=== PATIENT | female | born 1935 | race Caucasian/White ===

== ENCOUNTER → 2018-02-13 12:38 | Outpatient (CLI) | payer MEDICARE, OTHER, SELFPAY ==
[2018-02-13 12:55] LABS: Bacteria Urine None Seen; RBC Urine None Seen (0-5/HPF); WBC Urine None Seen (0-5/HPF)
[2018-02-13 13:21] LABS: Appearance Urine UA CLEAR; Bilirubin Urine UA NEGATIVE (NEGATIVE); Color Urine UA YELLOW; Glucose Urine UA NEGATIVE (Normal); Ketones Urine UA NEGATIVE (NEGATIVE); Leukocyte Esterase Urine UA NEGATIVE (NEGATIVE); Nitrite Urine UA Negative (Negative); Occult Blood Urine UA TRACE-INTACT (Negative); Protein Urine UA NEGATIVE (Negative); Urobilinogen Urine UA 0.2 E.U./dL (0.2); pH Urine UA 5.5 (4.5-8.0)
[2018-02-13 13:43] LABS: Culture Indicated Urine Cult Not Indicated; Urine Comments Microscopic Normal
[2018-02-13 14:05] LABS: Add Manual Diff / Slide Review NO; Basophils Percent Auto 0.9 % (0-2); Eosinophils Percent Auto 2.9 % (2-4); Lymphocytes Percent Auto 33.8 % (25-40); Mean Corpuscular HGB Conc 33.5 % (30-36); Mean Corpuscular Hemoglobin 31.3 PG (26-34); Mean Corpuscular Volume 93.7 fL (80-100); Monocytes Percent Auto 9.3 % (3-14); Neutrophils Absolute Auto 4200 /uL (3000-5900); Neutrophils Percent Auto 53.1 % (50-75); Platelet Count 248 X10^3/uL (150-400); Red Blood Cell Count 4.48 X10^6/uL (4.0-5.2); White Blood Cell Count 7.9 X10^3/uL (4.5-11.0)
== END ==
PROVIDERS: Family Provider Internal Medicine; PCP Internal Medicine; Visit Provider Internal Medicine
DX: R10.9 Unspecified abdominal pain (principal)
CPT/HCPCS: 36415; 81001; 85025

== ENCOUNTER → 2018-03-12 07:46 | Outpatient (CLI) | payer MEDICARE, OTHER, SELFPAY ==
[2018-03-12 09:06] LABS: Alanine Aminotransferase 26 IU/L (9-52); Aspartate Aminotransferase 21 IU/L (14-36); Blood Urea Nitrogen 21 mg/dL (7-17); Calcium 9.2 mg/dL (8.4-10.2); Carbon Dioxide 31 mmol/L (22-32); Chloride 101 mmol/L (98-107); Cholesterol 143 mg/dL (140-199); Estimated Glomerular Filt Rate 53.2 mL/min (>60); Glucose 103 mg/dL (80-110); HDL Cholesterol 54 mg/dL (40-60); HEMOLYSIS < 15 (0-50); LDL Cholesterol Calculated 70 mg/dL (<100); Potassium 4.5 mmol/L (3.4-5.1); Sodium 140 mmol/L (137-145); Triglycerides 97 mg/dL (35-150)
[2018-03-12 09:32] LABS: TSH w/ Reflex to FT4 2.34 uIU/mL (0.47-4.68)
== END ==
PROVIDERS: PCP Internal Medicine; Visit Provider Internal Medicine
DX: I10 Essential (primary) hypertension (principal); E78.00 Pure hypercholesterolemia, unspecified; E03.9 Hypothyroidism, unspecified
CPT/HCPCS: 36415; 80048; 80061; 84443; 84450; 84460

== ENCOUNTER 2018-03-25 09:18 | Emergency (ER) | payer MEDICARE, OTHER, SELFPAY ==
[2018-03-25 09:25] VITALS: BP 167/64; PULSE 80; RESP 22; TEMP 36.9; O2SAT 97; BMI 34.3
--- NOTE | 2018-03-25 09:27 | DI.RAD.S_ITS ---
PROCEDURE: XR CHEST 2V INDICATIONS: cough TECHNIQUE: 2 views of the chest were acquired. COMPARISON: [facility], , XR CHEST 2 VIEWS, 04/13/2017, 11:15. FINDINGS: Surgical changes and devices: None. Lungs and pleura: No pleural effusions or pneumothorax. Lungs are clear. Mediastinum: Mediastinal contours are normal. Heart size is normal. Bones and chest wall: No suspicious bony abnormalities. Soft tissues appear unremarkable. IMPRESSION: No acute process. Dictated by: Naz Hernandez M.D. on 03/25/2018 at 10:06 Approved by: Naz Hernandez M.D. on 03/25/2018 at 10:06
[2018-03-25] MEDS: ALBUTEROL/IPRATROPIUM 3 ML AMPUL INH (10:01)
[2018-03-25 10:35] LABS: Influenza A and B by PCR Rapid Negative (Negative)
[2018-03-25 10:54] VITALS: BP 145/68; PULSE 77; RESP 15; O2SAT 95
--- NOTE | 2018-03-25 16:34 | ED_ITS ---
HPI - URI/Sore Throat General Chief Complaint: Upper Respiratory Symptoms Stated Complaint: cold/cough 6 days Time Seen by Provider: 03/25/18 09:34 Source: patient Mode of arrival: ambulatory Limitations: no limitations History of Present Illness HPI Narrative: 82-year-old female, former smoker presents to the emergency department with 6 days harsh cough, occasionally productive of yellowish sputum. She has had no fever and denies significant shortness of breath. She does state that a deep breath makes her more likely to cough. She has had no runny nose or sore throat. She denies body aches MD Complaint: cough Onset (ago): day(s) Duration: constant Severity: moderate Relieving factors: nothing Exacerbating factors: nothing Description of mucous: yellow Able to tolerate fluids by mouth: Yes Associated symptoms: denies other symptoms Treatments prior to arrival: none Related Data Home Medications Medication Instructions Recorded Confirmed levothyroxine [Synthroid] 0.2 mg PO QDAY #0 01/17/16 losartan 100 mg PO QDAY #0 01/17/16 amlodipine 10 mg PO QDAY #90 tab 01/18/16 esomeprazole magnesium [Nexium] 40 mg PO BID #180 cap 01/18/16 metoprolol succinate [Toprol XL] 100 mg PO QDAY #0 tab 01/18/16 spironolactone [Aldactone] 25 mg PO QDAY #0 09/20/17 Previous Rx's Medication Instructions Recorded aspirin-dipyridamole [Aggrenox] 1 cap PO BID #60 cap 01/18/16 atorvastatin [Lipitor] 40 mg PO HS #30 tab 01/18/16 codeine-guaifenesin 5 ml PO QHS #60 ml 09/20/17 oseltamivir [Tamiflu] 75 mg PO BID #10 cap 09/20/17 benzonatate [Tessalon Perles] 100 mg PO TID PRN #20 cap 03/25/18 doxycycline monohydrate 100 mg PO BID 10 Days #20 cap 03/25/18 Allergies Allergy/AdvReac Type Severity Reaction Status Date / Time No Known Allergies Allergy Uncoded 03/25/18 09:35 Review of Systems Review of Systems All systems reviewed & are unremarkable except as noted in HPI and below Constitutional Denies chills, Denies fever(s), Denies lethargy and Denies weakness Eyes Denies change in vision, Denies eye discharge, Denies irritation and Denies loss of vision ENT Ears, Nose, Mouth, and Throat: Denies change in voice, Denies neck pain and Denies sore throat Cardiovascular Denies chest pain, Denies irregular heart rhythm, Denies lightheadedness, Denies palpitations, Denies dyspnea, Denies dyspnea on exertion and Denies orthopnea Respiratory Reports chest congestion, Reports cough, Denies dyspnea, Denies dyspnea on exertion and Denies wheezing Gastrointestinal Gastrointestinal: Denies abdominal pain, Denies change in bowel habits, Denies diarrhea, Denies nausea and Denies vomiting Genitourinary Denies hematuria, Denies flank pain, Denies urinary incontinence and Denies urinary urgency Musculoskeletal Denies neck pain Integumentary/Breasts Denies pruritus, Denies erythema, Denies rash and Denies wounds Neurologic Denies confusion, Denies loss of vision and Denies weakness Psychiatric Denies anxiety, Denies confusion, Denies depression, Denies homicidal ideation and Denies suicidal ideation Endocrine Denies palpitations Hematologic/Lymphatic Denies easy bruising Allergic/Immunologic Denies wheezing PFSH Social History Smoking Status: Former smoker Exam Narrative Exam Narrative: GENERAL: This is a well-nourished, well-developed patient, in mild distress. HEAD: Atraumatic. Normocephalic. No temporal or scalp tenderness. EYES: Pupils equal round and reactive. Extraocular motions intact. No scleral icterus. No injection or drainage. ENT: Nose without bleeding, purulent drainage or septal hematoma. Throat without erythema, tonsillar hypertrophy or exudate. Uvula midline. Airway patent. NECK: Trachea midline. No JVD or lymphadenopathy. Supple, nontender, no meningeal signs. CARDIOVASCULAR: Regular rate and rhythm without murmurs, gallops, or rubs. RESPIRATORY: Clear to auscultation. Breath sounds equal bilaterally. Mild expiratory wheeze GASTROINTESTINAL: Abdomen soft, non-tender, nondistended. No hepato-splenomegaly , or palpable masses. No guarding. EXTREMITIES: No clubbing, cyanosis, or edema. No joint tenderness, effusion, or edema noted. BACK: Nontender without deformity or crepitance. No flank tenderness. NEURO: AOx3. SKIN: No rash or erythema. Initial Vital Signs Initial Vital Signs: Vital Signs Temperature 98.5 F 10/14/18 09:25 Pulse Rate 80 03/25/18 09:25 Respiratory Rate 22 03/25/18 09:25 Blood Pressure 167/64 H 03/25/18 09:25 Pulse Oximetry 97 03/25/18 09:25 Course Orders Ordered: ED Orders 03/25/18 09:27 CXR [XR chest 2V] Stat 03/25/18 10:10 Influenza A and B by PCR Rapid Stat Discontinued Medications Albuterol/Ipratropium (Duoneb) 3 ml INH NOW ONE Stop: 03/25/18 09:51 Last Admin: 03/25/18 10:01 Dose: 3 ml Reevaluation(s) Reevaluation #1: Patient was given bronchodilator given her description of bronchospastic cough but it provided little relief Vital Signs - 8 hr 03/25/18 09:25 03/25/18 10:54 Temperature 98.5 F Pulse Rate 80 77 Respiratory Rate 22 15 Blood Pressure 167/64 H Blood Pressure [Left Arm] 145/68 H Pulse Oximetry 97 95 MDM - URI/Sore Throat Lab Data Lab Results 03/25/18 Range/Units 10:10 Influenza A & B (PCR) Negative (Negative) Discharge Plan Departure Patient Disposition: Home Clinical Impression: Atypical pneumonia Discharge Date/Time: 03/25/18 11:06 Interventions: ED Discharge Assessment Last Done: 03/25/18 11:05 Instructions: DI for Atypical Pneumonia Activity Restrictions/Additional Instructions: *You have been diagnosed with [ atypical pneumonia ] *What to do: *Take medications as directed: Prescriptions have been electronically transmitted to the [facility] at your request *Follow up with your primary care provider in 2-3 days, call for an appointment. Let them know you were seen in the Emergency Department and that we ask that you be seen in follow up *Return to ER if you should have any new, worsening or concerning symptoms Prescriptions: New doxycycline monohydrate 100 mg capsule 100 mg PO BID 10 Days Qty: 20 RF: 0 benzonatate [Tessalon Perles] 100 mg capsule 100 mg PO TID PRN (Reason: cough) Qty: 20 RF: 0 No Action levothyroxine [Synthroid] 200 MCG tablet 0.2 mg PO QDAY Qty: 0 RF: 0 losartan 100 MG tablet 100 mg PO QDAY Qty: 0 RF: 0 aspirin-dipyridamole [Aggrenox] 25 MG/200 MG capsule, ER multiphase 12 hr 1 cap PO BID Qty: 60 RF: 0 esomeprazole magnesium [Nexium] 40 MG capsule,delayed release(DR/EC) 40 mg PO BID Qty: 180 RF: 3 metoprolol succinate [Toprol XL] 100 MG tablet extended release 24 hr 100 mg PO QDAY Qty: 0 RF: 0 amlodipine 10 MG tablet 10 mg PO QDAY Qty: 90 RF: 3 atorvastatin [Lipitor] 20 MG tablet 40 mg PO HS Qty: 30 RF: 0 spironolactone [Aldactone] 25 MG tablet 25 mg PO QDAY Qty: 0 RF: 0 oseltamivir [Tamiflu] 75 MG capsule 75 mg PO BID Qty: 10 RF: 0 codeine-guaifenesin 100 MG/10 MG liquid 5 ml PO QHS Qty: 60 RF: 0 Referrals: Philly Merrill MD [Primary Care Provider] -
== END 2018-03-25 11:06 | disposition home or self-care (01) ==
PROVIDERS: Emergency Provider Emergency Medicine; Family Provider Internal Medicine; PCP Internal Medicine
DX: J18.9 Pneumonia, unspecified organism (principal)
CPT/HCPCS: 71046; 87400; 94640; 99282; 99284

== ENCOUNTER 2018-08-06 11:30 | Emergency (ER) | payer MEDICARE, OTHER, SELFPAY ==
[2018-08-06] VITALS (9 sets, daily range): BP systolic 128–154; BP diastolic 56–90; PULSE 65–74; RESP 20–30; TEMP 37; O2SAT 91–97; BMI 33.9
--- NOTE | 2018-08-06 11:43 | DI.RAD.S_ITS ---
PROCEDURE: XR CHEST 2V INDICATIONS: shortness of breath TECHNIQUE: 2 views of the chest were acquired. COMPARISON: [facility], , XR CHEST 2V, 03/25/2018, 9:26. FINDINGS: Surgical changes and devices: None. Lungs and pleura: Lungs are clear. No pleural effusions or pneumothorax. Eventration of the right diaphragm is similar to prior study. Mediastinum: Mediastinal contours are normal. Heart size is enlarged. There is aortic atherosclerosis. Bones and chest wall: No suspicious bony abnormalities. Degenerative changes of the shoulders and spine are present. These findings are similar to the prior study. Soft tissues appear unremarkable. IMPRESSION: Cardiomegaly without overt heart failure. No acute cardiopulmonary process is evident. Dictated by: Gregorio Angel M.D. on 08/06/2018 at 11:23 Approved by: Gregorio Angel M.D. on 08/06/2018 at 11:37
[2018-08-06] MEDS: ALBUTEROL/IPRATROPIUM 3 ML AMPUL INH (12:00)
[2018-08-06 12:21] LABS: Add Manual Diff / Slide Review NO; Basophils Absolute Auto 0 /uL (0-100); Basophils Percent Auto 0.8 % (0-2); Eosinophils Absolute Auto 0 /uL (0-450); Eosinophils Percent Auto 1.3 % (2-4); Hemoglobin 12.6 g/dL (12.0-16.0); Lymphocytes Absolute Auto 1300 /uL (1100-4500); Lymphocytes Percent Auto 34.8 % (25-40); Mean Corpuscular HGB Conc 34.1 % (30-36); Mean Corpuscular Hemoglobin 31.2 PG (26-34); Mean Corpuscular Volume 91.5 fL (80-100); Monocytes Absolute Auto 500 /uL (0-900); Monocytes Percent Auto 13.5 % (3-14); Neutrophils Absolute Auto 1800 /uL (1500-7000); Neutrophils Percent Auto 49.6 % (50-75); Platelet Count 180 X10^3/uL (150-400); Red Blood Cell Count 4.05 X10^6/uL (4.0-5.2); Red Cell Distribution Width 13.6 % (11.6-14.8); White Blood Cell Count 3.6 X10^3/uL (4.5-11.0)
[2018-08-06 12:31] LABS: Alanine Aminotransferase 31 IU/L (9-52); Albumin 4.2 g/dL (3.5-5.0); Albumin Globulin Ratio 1.4 (1.0-2.8); Alkaline Phosphatase 80 U/L (38-126); Aspartate Aminotransferase 25 IU/L (14-36); BUN Creatinine Ratio 17.5 (6-22); Bilirubin Total 0.2 mg/dL (0.2-1.3); Blood Urea Nitrogen 14 mg/dL (7-17); Calcium 8.3 mg/dL (8.4-10.2); Carbon Dioxide 27 mmol/L (22-32); Chloride 89 mmol/L (98-107); Estimated Glomerular Filt Rate > 60.0 mL/min (>60); Globulin 2.9 g/dL (1.7-4.1); Glucose 110 mg/dL (80-110); HEMOLYSIS < 15 (0-50); Potassium 3.9 mmol/L (3.4-5.1); Sodium 127 mmol/L (137-145); Total Protein 7.1 g/dL (6.3-8.2)
--- NOTE | 2018-08-06 13:08 | ED.SOB ---
HPI - SOB/Dyspnea <Nanette Marrero PA-C - Last Filed: 08/06/18 21:15> General Chief Complaint: Shortness of Breath/Dyspnea Stated Complaint: cough,difficulty breathing Time Seen by Provider: 08/06/18 13:08 Source: patient Mode of arrival: ambulatory Limitations: no limitations History of Present Illness This 83-year-old female comes to ED due to acute onset of fatigue, body aches, and mostly dry cough 4 days ago. She also has some runny nose. She denies having any fever at home. For the last 2 days, she has had some pain in her chest especially when she coughs. She states that she has also had wheeze and increased cough especially when lying down. She feels a little bit short of breath. She states all of this feels significantly improved following nebulizer treatment. She states that she always has some swelling in her legs, nothing new or worse. She has not had any chest pain outside of this episode with cough. She does not have any history of reactive airways or lung disease. She denies any abdominal pain or nausea. She denies any new pain in her extremities. She occasionally has a cigarette when she goes out ( maybe 1 pack every 1-2 months). She denies any change in her medical history since last admitted here. Med/Surg History 1. Hypertension 2. Hyperlipidemia 3. TIA 4. GERD 5. Restless leg syndrome 6. Insomnia 7. Diverticulitis with history of diverticular abscess in 2011 8. Urinary retention, intermittent 9. Osteoarthritis of knee 10. Frozen shoulder 11. Adenomatous polyps in the colon, 2011 12. History of thyroidectomy with subsequent Hypothyroidism 13. Status post cholecystectomy 14. Bilateral cataract surgery, September 2011 15. Left total knee arthroplasty, 2010 16. Hypothyroid Allergies Coded Allergies: No Known Allergies (01/17/16) Social History She is . Her daughter and great granddaughter live with her. She drinks alcohol occasionally. She occasionally smokes a cigarette Family History Noncontributory Related Data Home Medications Medication Instructions Recorded Confirmed levothyroxine [Synthroid] 200 mcg PO DAILY #0 01/17/16 08/06/18 losartan 100 mg PO DAILY #0 01/17/16 08/06/18 amlodipine 10 mg PO DAILY #90 tab 01/18/16 08/06/18 metoprolol succinate [Toprol XL] 100 mg PO DAILY #0 tab 01/18/16 08/06/18 spironolactone [Aldactone] 25 mg PO DAILY #0 09/20/17 08/06/18 atorvastatin 40 mg PO DAILY 08/06/18 08/06/18 clopidogrel 75 mg PO DAILY 08/06/18 08/06/18 mirtazapine 30 mg PO BEDTIME 08/06/18 08/06/18 pantoprazole 40 mg PO BID 08/06/18 08/06/18 pramipexole 0.5 mg PO BEDTIME 08/06/18 08/06/18 Previous Rx's Medication Instructions Recorded albuterol sulfate 2 inhalation INHALATION Q4H PRN 08/06/18 #8.5 gram promethazine-codeine 5 ml PO Q4H PRN #118 ml 08/06/18 Allergies Allergy/AdvReac Type Severity Reaction Status Date / Time No Known Drug Allergies Allergy Verified 08/06/18 12:02 Review of Systems <Nanette Marrero PA-C - Last Filed: 08/06/18 21:15> Review of Systems ROS Unobtainable: All systems reviewed & are unremarkable except as noted in HPI and below PFSH <Nanette Marrero PA-C - Last Filed: 08/06/18 21:15> Medical History TIA (transient ischemic attack) (Acute) Social History Smoking Status: Former smoker Social History Smoking Status: Former smoker Exam <Nanette Marrero PA-C - Last Filed: 08/06/18 21:15> Narrative Exam Narrative: GENERAL APPEARANCE: Patient sitting comfortably, in no distress. HEAD: No sinus TTP. EYES: PERRL, EOMI. EARS: Normal auditory canals, TMS intact with normal light reflexes. ORAL CAVITY: Normal oropharynx. THROAT: Clear. NECK/THYROID: Neck supple, full range of motion, no cervical lymphadenopathy. LUNGS: breath sounds are a little coarse with faint generalized expiratory wheezes, no crackles, hoarse cough on exam HEART: RRR without murmur, nl S1, S2, no S3 or S4. EXTREMITIES: no cyanosis, mild symmetric edema bilaterally, no calf tenderness Initial Vital Signs Initial Vital Signs: Vital Signs Temperature 98.6 F 08/06/18 11:33 Pulse Rate 74 08/06/18 11:33 Respiratory Rate 30 H 08/06/18 11:33 Blood Pressure 154/69 H 08/06/18 11:33 Pulse Oximetry 97 08/06/18 11:33 <Baylee Lam DO - Last Filed: 08/07/18 12:18> Initial Vital Signs Initial Vital Signs: Vital Signs Temperature 98.6 F 08/06/18 11:33 Pulse Rate 74 08/06/18 11:33 Respiratory Rate 30 H 08/06/18 11:33 Blood Pressure 154/69 H 08/06/18 11:33 Pulse Oximetry 97 08/06/18 11:33 Course <Nanette Marrero PA-C - Last Filed: 08/06/18 21:15> Additional Information: patient is feeling significantly improved after nebulizer treatments and is ambulating comfortably in the department without dyspnea. Will continue supportive management at home, however she agrees to return right away if acutely worsening symptoms. We also discussed her hyponatremia which may be new. She has been trying to hydrate more and cut back her salt intake. She is asymptomatic. She will not push fluids and will increase sodium a little bit and recheck with her PCP in the next week. Orders Ordered: Discontinued Medications Albuterol (Ventolin) 2.5 mg INH NOW ONE Stop: 08/06/18 13:37 Last Admin: 08/06/18 14:08 Dose: 2.5 mg Albuterol/Ipratropium (Duoneb) 3 ml INH NOW ONE Stop: 08/06/18 12:00 Last Admin: 08/06/18 12:00 Dose: 3 ml Vital Signs - 8 hr 08/06/18 14:09 08/06/18 14:14 08/06/18 14:30 Pulse Rate 65 65 68 Respiratory Rate 20 24 20 Blood Pressure [Right Arm] 130/59 L 142/90 H Pulse Oximetry 95 96 91 <Baylee Lam DO - Last Filed: 08/07/18 12:18> Orders Ordered: Discontinued Medications Albuterol (Ventolin) 2.5 mg INH NOW ONE Stop: 08/06/18 13:37 Last Admin: 08/06/18 14:08 Dose: 2.5 mg Albuterol/Ipratropium (Duoneb) 3 ml INH NOW ONE Stop: 08/06/18 12:00 Last Admin: 08/06/18 12:00 Dose: 3 ml Vital Signs - 8 hr 08/06/18 14:09 08/06/18 14:14 08/06/18 14:30 Pulse Rate 65 65 68 Respiratory Rate 20 24 20 Blood Pressure [Right Arm] 130/59 L 142/90 H Pulse Oximetry 95 96 91 MDM - SOB/Dyspnea <Nanette Marrero PA-C - Last Filed: 08/06/18 21:15> Lab Data Attestation: I reviewed the patient's lab results. Result diagrams: 08/06/18 12:03 08/06/18 12:03 Lab Results 08/06/18 08/06/18 08/06/18 Range/Units 11:42 12:03 12:03 WBC 3.6 L (4.5-11.0) X10^3/uL RBC 4.05 (4.0-5.2) X10^6/uL Hgb 12.6 (12.0-16.0) g/dL Hct 37.0 (36-46) % MCV 91.5 (80-100) fL MCH 31.2 (26-34) PG MCHC 34.1 (30-36) % RDW 13.6 (11.6-14.8) % Plt Count 180 (150-400) X10^3/uL Neut % (Auto) 49.6 L (50-75) % Lymph % (Auto) 34.8 (25-40) % [place] % (Auto) 13.5 (3-14) % Eos % (Auto) 1.3 L (2-4) % Baso % (Auto) 0.8 (0-2) % Neut # (Auto) 1800 (7160-3637) /uL Lymph # (Auto) 1300 (0360-7370) /uL [place] # (Auto) 500 (0-900) /uL Eos # (Auto) 0 (0-450) /uL Baso # (Auto) 0 (0-100) /uL Sodium 127 L (137-145) mmol/L Potassium 3.9 (3.4-5.1) mmol/L Chloride 89 L (98-107) mmol/L Carbon Dioxide 27 (22-32) mmol/L BUN 14 (7-17) mg/dL Creatinine 0.80 (0.52-1.04) mg/dL Estimated GFR > 60.0 (>60) mL/min BUN/Creatinine Ratio 17.5 (6-22) Glucose 110 (80-110) mg/dL Lactate (0.7-2.1) mmol/L Calcium 8.3 L (8.4-10.2) mg/dL Total Bilirubin 0.2 (0.2-1.3) mg/dL AST 25 (14-36) IU/L ALT 31 (9-52) IU/L Alkaline Phosphatase 80 (38-126) U/L B-Natriuretic Peptide (<100) Total Protein 7.1 (6.3-8.2) g/dL Albumin 4.2 (3.5-5.0) g/dL Globulin 2.9 (1.7-4.1) g/dL Albumin/Globulin Ratio 1.4 (1.0-2.8) Influenza A & B (PCR) Positive, type a A (Negative) 08/06/18 08/06/18 Range/Units 12:03 12:03 WBC (4.5-11.0) X10^3/uL RBC (4.0-5.2) X10^6/uL Hgb (12.0-16.0) g/dL Hct (36-46) % MCV (80-100) fL MCH (26-34) PG MCHC (30-36) % RDW (11.6-14.8) % Plt Count (150-400) X10^3/uL Neut % (Auto) (50-75) % Lymph % (Auto) (25-40) % [place] % (Auto) (3-14) % Eos % (Auto) (2-4) % Baso % (Auto) (0-2) % Neut # (Auto) (0253-2404) /uL Lymph # (Auto) (3852-0258) /uL [place] # (Auto) (0-900) /uL Eos # (Auto) (0-450) /uL Baso # (Auto) (0-100) /uL Sodium (137-145) mmol/L Potassium (3.4-5.1) mmol/L Chloride (98-107) mmol/L Carbon Dioxide (22-32) mmol/L BUN (7-17) mg/dL Creatinine (0.52-1.04) mg/dL Estimated GFR (>60) mL/min BUN/Creatinine Ratio (6-22) Glucose (80-110) mg/dL Lactate 1.0 (0.7-2.1) mmol/L Calcium (8.4-10.2) mg/dL Total Bilirubin (0.2-1.3) mg/dL AST (14-36) IU/L ALT (9-52) IU/L Alkaline Phosphatase (38-126) U/L B-Natriuretic Peptide 160 H (<100) Total Protein (6.3-8.2) g/dL Albumin (3.5-5.0) g/dL Globulin (1.7-4.1) g/dL Albumin/Globulin Ratio (1.0-2.8) Influenza A & B (PCR) (Negative) Imaging Data Chest x-ray: Radiologist's impression: ShahbazmarileeShannan R 83 F 1935 [place] [address] XRay Report Signed Patient: Shannan Agarwal RMR#: [id number] : 1935cct:[id number] Age/Sex: 83 / FDate of Service: 08/06/18 Loc: Accession Number: [id number] Procedure: XR chest 2V Ordering Provider: Baylee Lam D.O. PROCEDURE: XR CHEST 2V INDICATIONS: shortness of breath TECHNIQUE: 2 views of the chest were acquired. COMPARISON: [facility], , XR CHEST 2V, 03/25/2018, 9:26. FINDINGS: Surgical changes and devices: None. Lungs and pleura: Lungs are clear. No pleural effusions or pneumothorax. Eventration of the right diaphragm is similar to prior study. Mediastinum: Mediastinal contours are normal. Heart size is enlarged. There is aortic atherosclerosis. Bones and chest wall: No suspicious bony abnormalities. Degenerative changes of the shoulders and spine are present. These findings are similar to the prior study. Soft tissues appear unremarkable. IMPRESSION: Cardiomegaly without overt heart failure. No acute cardiopulmonary process is evident. Dictated by: Gregorio Angel M.D. on 08/06/2018 at 11:23 Approved by: Gregorio Angel M.D. on 08/06/2018 at 11:37 ECG Data Attestation: I personally reviewed and interpreted this ECG as follows: ( normal sinus rhythm with rate 70, normal axis) <Baylee Lam DO - Last Filed: 08/07/18 12:18> Lab Data Attestation: I reviewed the patient's lab results. Lab Results 08/06/18 08/06/18 08/06/18 Range/Units 11:42 12:03 12:03 WBC 3.6 L (4.5-11.0) X10^3/uL RBC 4.05 (4.0-5.2) X10^6/uL Hgb 12.6 (12.0-16.0) g/dL Hct 37.0 (36-46) % MCV 91.5 (80-100) fL MCH 31.2 (26-34) PG MCHC 34.1 (30-36) % RDW 13.6 (11.6-14.8) % Plt Count 180 (150-400) X10^3/uL Neut % (Auto) 49.6 L (50-75) % Lymph % (Auto) 34.8 (25-40) % [place] % (Auto) 13.5 (3-14) % Eos % (Auto) 1.3 L (2-4) % Baso % (Auto) 0.8 (0-2) % Neut # (Auto) 1800 (8745-6326) /uL Lymph # (Auto) 1300 (3283-9372) /uL [place] # (Auto) 500 (0-900) /uL Eos # (Auto) 0 (0-450) /uL Baso # (Auto) 0 (0-100) /uL Sodium 127 L (137-145) mmol/L Potassium 3.9 (3.4-5.1) mmol/L Chloride 89 L (98-107) mmol/L Carbon Dioxide 27 (22-32) mmol/L BUN 14 (7-17) mg/dL Creatinine 0.80 (0.52-1.04) mg/dL Estimated GFR > 60.0 (>60) mL/min BUN/Creatinine Ratio 17.5 (6-22) Glucose 110 (80-110) mg/dL Lactate (0.7-2.1) mmol/L Calcium 8.3 L (8.4-10.2) mg/dL Total Bilirubin 0.2 (0.2-1.3) mg/dL AST 25 (14-36) IU/L ALT 31 (9-52) IU/L Alkaline Phosphatase 80 (38-126) U/L B-Natriuretic Peptide (<100) Total Protein 7.1 (6.3-8.2) g/dL Albumin 4.2 (3.5-5.0) g/dL Globulin 2.9 (1.7-4.1) g/dL Albumin/Globulin Ratio 1.4 (1.0-2.8) Influenza A & B (PCR) Positive, type a A (Negative) 08/06/18 08/06/18 Range/Units 12:03 12:03 WBC (4.5-11.0) X10^3/uL RBC (4.0-5.2) X10^6/uL Hgb (12.0-16.0) g/dL Hct (36-46) % MCV (80-100) fL MCH (26-34) PG MCHC (30-36) % RDW (11.6-14.8) % Plt Count (150-400) X10^3/uL Neut % (Auto) (50-75) % Lymph % (Auto) (25-40) % [place] % (Auto) (3-14) % Eos % (Auto) (2-4) % Baso % (Auto) (0-2) % Neut # (Auto) (7363-4476) /uL Lymph # (Auto) (6259-0760) /uL [place] # (Auto) (0-900) /uL Eos # (Auto) (0-450) /uL Baso # (Auto) (0-100) /uL Sodium (137-145) mmol/L Potassium (3.4-5.1) mmol/L Chloride (98-107) mmol/L Carbon Dioxide (22-32) mmol/L BUN (7-17) mg/dL Creatinine (0.52-1.04) mg/dL Estimated GFR (>60) mL/min BUN/Creatinine Ratio (6-22) Glucose (80-110) mg/dL Lactate 1.0 (0.7-2.1) mmol/L Calcium (8.4-10.2) mg/dL Total Bilirubin (0.2-1.3) mg/dL AST (14-36) IU/L ALT (9-52) IU/L Alkaline Phosphatase (38-126) U/L B-Natriuretic Peptide 160 H (<100) Total Protein (6.3-8.2) g/dL Albumin (3.5-5.0) g/dL Globulin (1.7-4.1) g/dL Albumin/Globulin Ratio (1.0-2.8) Influenza A & B (PCR) (Negative) ECG Data Attestation: I personally reviewed and interpreted this ECG as follows: Prior ECG tracings: available for review Interpretation: Normal sinus rhythm rate [address] changes no T-wave inversions WI interval 159 similar to previous EKG and back slightly improved previous EKG had T-wave inversions in lead 3 and AVF, Which are not present on today's. Discharge Plan Departure Patient Disposition: Home Clinical Impression: Influenza Discharge Date/Time: 08/06/18 15:11 Interventions: ED Discharge Assessment Last Done: 08/06/18 15:01 Instructions: DI for Influenza -- Adult, DI for Hyponatremia, DI for Reactive Airway Disease-Adult Activity Restrictions/Additional Instructions: Please return home and rest. Use the albuterol inhaler with the spacer as often as you needed to help with cough and tight chest. You can use the prescription cough syrup as you need as well, but remember it can make you drowsy ( do not drive). As we talked about, you should return here right away if you have any acutely worsening symptoms or the inhaler is not working for you. As we discussed, your sodium ( salt) level was coincidentally found to be low today on your blood work compared to previous studies. This could relate to you trying to drink a lot of water on purpose while cutting your salt intake. Please drink when you are thirsty but do not overload on fluids. You can add a little bit of salt back to her diet as well. Please follow-up with your PCP next week to have this rechecked. Prescriptions: New promethazine-codeine 6.25-10 mg/5 mL syrup 5 ml PO Q4H PRN (Reason: cough) Qty: 118 RF: 0 albuterol sulfate 90 mcg/actuation HFA aerosol inhaler 2 inhalation INHALATION Q4H PRN (Reason: shortness of breath or wheezing) Qty: 8.5 RF: 0 No Action levothyroxine [Synthroid] 200 MCG tablet 200 mcg PO DAILY Qty: 0 RF: 0 losartan 100 MG tablet 100 mg PO DAILY Qty: 0 RF: 0 metoprolol succinate [Toprol XL] 100 MG tablet extended release 24 hr 100 mg PO DAILY Qty: 0 RF: 0 amlodipine 10 MG tablet 10 mg PO DAILY Qty: 90 RF: 3 spironolactone [Aldactone] 25 MG tablet 25 mg PO DAILY Qty: 0 RF: 0 atorvastatin 40 mg tablet 40 mg PO DAILY RF: 0 clopidogrel 75 mg tablet 75 mg PO DAILY RF: 0 pramipexole 0.5 mg tablet 0.5 mg PO BEDTIME RF: 0 pantoprazole 40 mg tablet,delayed release (DR/EC) 40 mg PO BID RF: 0 mirtazapine 30 mg tablet 30 mg PO BEDTIME RF: 0 Referrals: Philly Merrill MD [Primary Care Provider] - <Baylee Lam DO - Last Filed: 08/07/18 12:18> Cosign ED Attending Cosignature Attestation: I was immediately available in the department for consultation. Documentation has been reviewed. I agree with assessment and plan.
--- NOTE | 2018-08-06 13:14 | ED_ITS ---
HPI - SOB/Dyspnea <Nanette Marrero PA-C - Last Filed: 08/06/18 21:15> General Chief Complaint: Shortness of Breath/Dyspnea Stated Complaint: cough,difficulty breathing Time Seen by Provider: 08/06/18 13:08 Source: patient Mode of arrival: ambulatory Limitations: no limitations History of Present Illness This 83-year-old female comes to ED due to acute onset of fatigue, body aches, and mostly dry cough 4 days ago. She also has some runny nose. She denies having any fever at home. For the last 2 days, she has had some pain in her chest especially when she coughs. She states that she has also had wheeze and increased cough especially when lying down. She feels a little bit short of breath. She states all of this feels significantly improved following nebulizer treatment. She states that she always has some swelling in her legs, nothing new or worse. She has not had any chest pain outside of this episode with cough. She does not have any history of reactive airways or lung disease. She denies any abdominal pain or nausea. She denies any new pain in her extremities. She occasionally has a cigarette when she goes out ( maybe 1 pack every 1-2 months). She denies any change in her medical history since last admitted here. Med/Surg History 1. Hypertension 2. Hyperlipidemia 3. TIA 4. GERD 5. Restless leg syndrome 6. Insomnia 7. Diverticulitis with history of diverticular abscess in 2011 8. Urinary retention, intermittent 9. Osteoarthritis of knee 10. Frozen shoulder 11. Adenomatous polyps in the colon, 2011 12. History of thyroidectomy with subsequent Hypothyroidism 13. Status post cholecystectomy 14. Bilateral cataract surgery, September 2011 15. Left total knee arthroplasty, 2010 16. Hypothyroid Allergies Coded Allergies: No Known Allergies (01/17/16) Social History She is . Her daughter and great granddaughter live with her. She drinks alcohol occasionally. She occasionally smokes a cigarette Family History Noncontributory Related Data Home Medications Medication Instructions Recorded Confirmed levothyroxine [Synthroid] 200 mcg PO DAILY #0 01/17/16 08/06/18 losartan 100 mg PO DAILY #0 01/17/16 08/06/18 amlodipine 10 mg PO DAILY #90 tab 01/18/16 08/06/18 metoprolol succinate [Toprol XL] 100 mg PO DAILY #0 tab 01/18/16 08/06/18 spironolactone [Aldactone] 25 mg PO DAILY #0 09/20/17 08/06/18 atorvastatin 40 mg PO DAILY 08/06/18 08/06/18 clopidogrel 75 mg PO DAILY 08/06/18 08/06/18 mirtazapine 30 mg PO BEDTIME 08/06/18 08/06/18 pantoprazole 40 mg PO BID 08/06/18 08/06/18 pramipexole 0.5 mg PO BEDTIME 08/06/18 08/06/18 Previous Rx's Medication Instructions Recorded albuterol sulfate 2 inhalation INHALATION Q4H PRN 08/06/18 #8.5 gram promethazine-codeine 5 ml PO Q4H PRN #118 ml 08/06/18 Allergies Allergy/AdvReac Type Severity Reaction Status Date / Time No Known Drug Allergies Allergy Verified 08/06/18 12:02 Review of Systems <Nanette Marrero PA-C - Last Filed: 08/06/18 21:15> Review of Systems ROS Unobtainable: All systems reviewed & are unremarkable except as noted in HPI and below PFSH <aNnette Marrero PA-C - Last Filed: 08/06/18 21:15> Medical History TIA (transient ischemic attack) (Acute) Social History Smoking Status: Former smoker Social History Smoking Status: Former smoker Exam <Nanette Marrero PA-C - Last Filed: 08/06/18 21:15> Narrative Exam Narrative: GENERAL APPEARANCE: Patient sitting comfortably, in no distress. HEAD: No sinus TTP. EYES: PERRL, EOMI. EARS: Normal auditory canals, TMS intact with normal light reflexes. ORAL CAVITY: Normal oropharynx. THROAT: Clear. NECK/THYROID: Neck supple, full range of motion, no cervical lymphadenopathy. LUNGS: breath sounds are a little coarse with faint generalized expiratory wheezes, no crackles, hoarse cough on exam HEART: RRR without murmur, nl S1, S2, no S3 or S4. EXTREMITIES: no cyanosis, mild symmetric edema bilaterally, no calf tenderness Initial Vital Signs Initial Vital Signs: Vital Signs Temperature 98.6 F 08/06/18 11:33 Pulse Rate 74 08/06/18 11:33 Respiratory Rate 30 H 08/06/18 11:33 Blood Pressure 154/69 H 08/06/18 11:33 Pulse Oximetry 97 08/06/18 11:33 <Baylee Lam DO - Last Filed: 08/07/18 12:18> Initial Vital Signs Initial Vital Signs: Vital Signs Temperature 98.6 F 08/06/18 11:33 Pulse Rate 74 08/06/18 11:33 Respiratory Rate 30 H 08/06/18 11:33 Blood Pressure 154/69 H 08/06/18 11:33 Pulse Oximetry 97 08/06/18 11:33 Course <Nanette Marrero PA-C - Last Filed: 08/06/18 21:15> Additional Information: patient is feeling significantly improved after nebulizer treatments and is ambulating comfortably in the department without dyspnea. Will continue supportive management at home, however she agrees to return right away if acutely worsening symptoms. We also discussed her hyponatremia which may be new. She has been trying to hydrate more and cut back her salt intake. She is asymptomatic. She will not push fluids and will increase sodium a little bit and recheck with her PCP in the next week. Orders Ordered: Discontinued Medications Albuterol (Ventolin) 2.5 mg INH NOW ONE Stop: 08/06/18 13:37 Last Admin: 08/06/18 14:08 Dose: 2.5 mg Albuterol/Ipratropium (Duoneb) 3 ml INH NOW ONE Stop: 08/06/18 12:00 Last Admin: 08/06/18 12:00 Dose: 3 ml Vital Signs - 8 hr 08/06/18 14:09 08/06/18 14:14 08/06/18 14:30 Pulse Rate 65 65 68 Respiratory Rate 20 24 20 Blood Pressure [Right Arm] 130/59 L 142/90 H Pulse Oximetry 95 96 91 <Baylee Lam DO - Last Filed: 08/07/18 12:18> Orders Ordered: Discontinued Medications Albuterol (Ventolin) 2.5 mg INH NOW ONE Stop: 08/06/18 13:37 Last Admin: 08/06/18 14:08 Dose: 2.5 mg Albuterol/Ipratropium (Duoneb) 3 ml INH NOW ONE Stop: 08/06/18 12:00 Last Admin: 08/06/18 12:00 Dose: 3 ml Vital Signs - 8 hr 08/06/18 14:09 08/06/18 14:14 08/06/18 14:30 Pulse Rate 65 65 68 Respiratory Rate 20 24 20 Blood Pressure [Right Arm] 130/59 L 142/90 H Pulse Oximetry 95 96 91 MDM - SOB/Dyspnea <Nanette Marrero PA-C - Last Filed: 08/06/18 21:15> Lab Data Attestation: I reviewed the patient's lab results. Result diagrams: 08/06/18 12:03 08/06/18 12:03 Lab Results 08/06/18 08/06/18 08/06/18 Range/Units 11:42 12:03 12:03 WBC 3.6 L (4.5-11.0) X10^3/uL RBC 4.05 (4.0-5.2) X10^6/uL Hgb 12.6 (12.0-16.0) g/dL Hct 37.0 (36-46) % MCV 91.5 (80-100) fL MCH 31.2 (26-34) PG MCHC 34.1 (30-36) % RDW 13.6 (11.6-14.8) % Plt Count 180 (150-400) X10^3/uL Neut % (Auto) 49.6 L (50-75) % Lymph % (Auto) 34.8 (25-40) % Dickinson % (Auto) 13.5 (3-14) % Eos % (Auto) 1.3 L (2-4) % Baso % (Auto) 0.8 (0-2) % Neut # (Auto) 1800 (9080-9360) /uL Lymph # (Auto) 1300 (4541-4879) /uL Dickinson # (Auto) 500 (0-900) /uL Eos # (Auto) 0 (0-450) /uL Baso # (Auto) 0 (0-100) /uL Sodium 127 L (137-145) mmol/L Potassium 3.9 (3.4-5.1) mmol/L Chloride 89 L (98-107) mmol/L Carbon Dioxide 27 (22-32) mmol/L BUN 14 (7-17) mg/dL Creatinine 0.80 (0.52-1.04) mg/dL Estimated GFR > 60.0 (>60) mL/min BUN/Creatinine Ratio 17.5 (6-22) Glucose 110 (80-110) mg/dL Lactate (0.7-2.1) mmol/L Calcium 8.3 L (8.4-10.2) mg/dL Total Bilirubin 0.2 (0.2-1.3) mg/dL AST 25 (14-36) IU/L ALT 31 (9-52) IU/L Alkaline Phosphatase 80 (38-126) U/L B-Natriuretic Peptide (<100) Total Protein 7.1 (6.3-8.2) g/dL Albumin 4.2 (3.5-5.0) g/dL Globulin 2.9 (1.7-4.1) g/dL Albumin/Globulin Ratio 1.4 (1.0-2.8) Influenza A & B (PCR) Positive, type a A (Negative) 08/06/18 08/06/18 Range/Units 12:03 12:03 WBC (4.5-11.0) X10^3/uL RBC (4.0-5.2) X10^6/uL Hgb (12.0-16.0) g/dL Hct (36-46) % MCV (80-100) fL MCH (26-34) PG MCHC (30-36) % RDW (11.6-14.8) % Plt Count (150-400) X10^3/uL Neut % (Auto) (50-75) % Lymph % (Auto) (25-40) % Dickinson % (Auto) (3-14) % Eos % (Auto) (2-4) % Baso % (Auto) (0-2) % Neut # (Auto) (6602-8616) /uL Lymph # (Auto) (6715-9927) /uL Dickinson # (Auto) (0-900) /uL Eos # (Auto) (0-450) /uL Baso # (Auto) (0-100) /uL Sodium (137-145) mmol/L Potassium (3.4-5.1) mmol/L Chloride (98-107) mmol/L Carbon Dioxide (22-32) mmol/L BUN (7-17) mg/dL Creatinine (0.52-1.04) mg/dL Estimated GFR (>60) mL/min BUN/Creatinine Ratio (6-22) Glucose (80-110) mg/dL Lactate 1.0 (0.7-2.1) mmol/L Calcium (8.4-10.2) mg/dL Total Bilirubin (0.2-1.3) mg/dL AST (14-36) IU/L ALT (9-52) IU/L Alkaline Phosphatase (38-126) U/L B-Natriuretic Peptide 160 H (<100) Total Protein (6.3-8.2) g/dL Albumin (3.5-5.0) g/dL Globulin (1.7-4.1) g/dL Albumin/Globulin Ratio (1.0-2.8) Influenza A & B (PCR) (Negative) Imaging Data Chest x-ray: Radiologist's impression: ShahbazmarileeShannan R 83 [address] [place] [address] XRay Report Signed Patient: Shannan Agarwal RMR#: [id number] : 1935cct:[id number] Age/Sex: 83 / FDate of Service: 08/06/18 Loc: Accession Number: [id number] Procedure: XR chest 2V Ordering Provider: Baylee Lam D.O. PROCEDURE: XR CHEST 2V INDICATIONS: shortness of breath TECHNIQUE: 2 views of the chest were acquired. COMPARISON: [facility], , XR CHEST 2V, 03/25/2018, 9:26. FINDINGS: Surgical changes and devices: None. Lungs and pleura: Lungs are clear. No pleural effusions or pneumothorax. Eventration of the right diaphragm is similar to prior study. Mediastinum: Mediastinal contours are normal. Heart size is enlarged. There is aortic atherosclerosis. Bones and chest wall: No suspicious bony abnormalities. Degenerative changes of the shoulders and spine are present. These findings are similar to the prior study. Soft tissues appear unremarkable. IMPRESSION: Cardiomegaly without overt heart failure. No acute cardiopulmonary process is evident. Dictated by: Gregorio Angel M.D. on 08/06/2018 at 11:23 Approved by: Gregorio Angel M.D. on 08/06/2018 at 11:37 ECG Data Attestation: I personally reviewed and interpreted this ECG as follows: ( normal sinus rhythm with rate 70, normal axis) <Baylee Lam DO - Last Filed: 08/07/18 12:18> Lab Data Attestation: I reviewed the patient's lab results. Lab Results 08/06/18 08/06/18 08/06/18 Range/Units 11:42 12:03 12:03 WBC 3.6 L (4.5-11.0) X10^3/uL RBC 4.05 (4.0-5.2) X10^6/uL Hgb 12.6 (12.0-16.0) g/dL Hct 37.0 (36-46) % MCV 91.5 (80-100) fL MCH 31.2 (26-34) PG MCHC 34.1 (30-36) % RDW 13.6 (11.6-14.8) % Plt Count 180 (150-400) X10^3/uL Neut % (Auto) 49.6 L (50-75) % Lymph % (Auto) 34.8 (25-40) % Dickinson % (Auto) 13.5 (3-14) % Eos % (Auto) 1.3 L (2-4) % Baso % (Auto) 0.8 (0-2) % Neut # (Auto) 1800 (0601-3600) /uL Lymph # (Auto) 1300 (3809-2645) /uL Dickinson # (Auto) 500 (0-900) /uL Eos # (Auto) 0 (0-450) /uL Baso # (Auto) 0 (0-100) /uL Sodium 127 L (137-145) mmol/L Potassium 3.9 (3.4-5.1) mmol/L Chloride 89 L (98-107) mmol/L Carbon Dioxide 27 (22-32) mmol/L BUN 14 (7-17) mg/dL Creatinine 0.80 (0.52-1.04) mg/dL Estimated GFR > 60.0 (>60) mL/min BUN/Creatinine Ratio 17.5 (6-22) Glucose 110 (80-110) mg/dL Lactate (0.7-2.1) mmol/L Calcium 8.3 L (8.4-10.2) mg/dL Total Bilirubin 0.2 (0.2-1.3) mg/dL AST 25 (14-36) IU/L ALT 31 (9-52) IU/L Alkaline Phosphatase 80 (38-126) U/L B-Natriuretic Peptide (<100) Total Protein 7.1 (6.3-8.2) g/dL Albumin 4.2 (3.5-5.0) g/dL Globulin 2.9 (1.7-4.1) g/dL Albumin/Globulin Ratio 1.4 (1.0-2.8) Influenza A & B (PCR) Positive, type a A (Negative) 08/06/18 08/06/18 Range/Units 12:03 12:03 WBC (4.5-11.0) X10^3/uL RBC (4.0-5.2) X10^6/uL Hgb (12.0-16.0) g/dL Hct (36-46) % MCV (80-100) fL MCH (26-34) PG MCHC (30-36) % RDW (11.6-14.8) % Plt Count (150-400) X10^3/uL Neut % (Auto) (50-75) % Lymph % (Auto) (25-40) % Dickinson % (Auto) (3-14) % Eos % (Auto) (2-4) % Baso % (Auto) (0-2) % Neut # (Auto) (1865-1972) /uL Lymph # (Auto) (5310-8372) /uL Dickinson # (Auto) (0-900) /uL Eos # (Auto) (0-450) /uL Baso # (Auto) (0-100) /uL Sodium (137-145) mmol/L Potassium (3.4-5.1) mmol/L Chloride (98-107) mmol/L Carbon Dioxide (22-32) mmol/L BUN (7-17) mg/dL Creatinine (0.52-1.04) mg/dL Estimated GFR (>60) mL/min BUN/Creatinine Ratio (6-22) Glucose (80-110) mg/dL Lactate 1.0 (0.7-2.1) mmol/L Calcium (8.4-10.2) mg/dL Total Bilirubin (0.2-1.3) mg/dL AST (14-36) IU/L ALT (9-52) IU/L Alkaline Phosphatase (38-126) U/L B-Natriuretic Peptide 160 H (<100) Total Protein (6.3-8.2) g/dL Albumin (3.5-5.0) g/dL Globulin (1.7-4.1) g/dL Albumin/Globulin Ratio (1.0-2.8) Influenza A & B (PCR) (Negative) ECG Data Attestation: I personally reviewed and interpreted this ECG as follows: Prior ECG tracings: available for review Interpretation: Normal sinus rhythm rate [address] changes no T-wave inversions MD interval 159 similar to previous EKG and back slightly improved previous EKG had T-wave inversions in lead 3 and AVF, Which are not present on today's. Discharge Plan Departure Patient Disposition: Home Clinical Impression: Influenza Discharge Date/Time: 08/06/18 15:11 Interventions: ED Discharge Assessment Last Done: 08/06/18 15:01 Instructions: DI for Influenza -- Adult, DI for Hyponatremia, DI for Reactive Airway Disease-Adult Activity Restrictions/Additional Instructions: Please return home and rest. Use the albuterol inhaler with the spacer as often as you needed to help with cough and tight chest. You can use the prescription cough syrup as you need as well, but remember it can make you drowsy ( do not drive). As we talked about, you should return here right away if you have any acutely worsening symptoms or the inhaler is not working for you. As we discussed, your sodium ( salt) level was coincidentally found to be low today on your blood work compared to previous studies. This could relate to you trying to drink a lot of water on purpose while cutting your salt intake. Please drink when you are thirsty but do not overload on fluids. You can add a little bit of salt back to her diet as well. Please follow-up with your PCP next week to have this rechecked. Prescriptions: New promethazine-codeine 6.25-10 mg/5 mL syrup 5 ml PO Q4H PRN (Reason: cough) Qty: 118 RF: 0 albuterol sulfate 90 mcg/actuation HFA aerosol inhaler 2 inhalation INHALATION Q4H PRN (Reason: shortness of breath or wheezing) Qty: 8.5 RF: 0 No Action levothyroxine [Synthroid] 200 MCG tablet 200 mcg PO DAILY Qty: 0 RF: 0 losartan 100 MG tablet 100 mg PO DAILY Qty: 0 RF: 0 metoprolol succinate [Toprol XL] 100 MG tablet extended release 24 hr 100 mg PO DAILY Qty: 0 RF: 0 amlodipine 10 MG tablet 10 mg PO DAILY Qty: 90 RF: 3 spironolactone [Aldactone] 25 MG tablet 25 mg PO DAILY Qty: 0 RF: 0 atorvastatin 40 mg tablet 40 mg PO DAILY RF: 0 clopidogrel 75 mg tablet 75 mg PO DAILY RF: 0 pramipexole 0.5 mg tablet 0.5 mg PO BEDTIME RF: 0 pantoprazole 40 mg tablet,delayed release (DR/EC) 40 mg PO BID RF: 0 mirtazapine 30 mg tablet 30 mg PO BEDTIME RF: 0 Referrals: Philly Merrill MD [Primary Care Provider] - <Baylee Lam DO - Last Filed: 08/07/18 12:18> Cosign ED Attending Cosignature Attestation: I was immediately available in the department for consultation. Documentation has been reviewed. I agree with assessment and plan.
[2018-08-06 13:53] LABS: B Type Natriuretic Peptide 160 (<100)
[2018-08-06] MEDS: ALBUTEROL 2.5 MG/3 ML NEB (ADULT) INH (14:08)
== END 2018-08-06 15:11 | disposition home or self-care (01) ==
PROVIDERS: Emergency Medicine; Emergency Provider Internal Medicine; Family Provider Internal Medicine; PCP Internal Medicine
DX: R06.02 Shortness of breath (principal)
CPT/HCPCS: 36591; 71046; 80053; 83605; 83880; 85025; 87400; 93005; 94640; 99284; J7613

== ENCOUNTER 2018-08-08 07:40 | Inpatient (IN) | payer MEDICARE, OTHER, SELFPAY ==
[2018-08-08] VITALS (16 sets, daily range): BP systolic 119–151; BP diastolic 32–97; PULSE 73–86; RESP 16–28; TEMP 36.3–37.6; O2SAT 83–98; BMI 33.9
[2018-08-08] MEDS: ALBUTEROL/IPRATROPIUM 3 ML AMPUL INH ×3 (07:45→20:16)
--- NOTE | 2018-08-08 07:53 | ED.SOB ---
HPI - SOB/Dyspnea General Chief Complaint: Shortness of Breath/Dyspnea Stated Complaint: flu, not getting better Time Seen by Provider: 08/08/18 07:52 Source: patient, family and old records reviewed Limitations: no limitations History of Present Illness This an 83-year-old comes to the emergency department with complaint of shortness of breath. Patient states she started having cough and upper respiratory symptoms last . She was seen here on this recent Monday for wheezing and difficulty breathing and was diagnosed with influenza patient was given albuterol inhaler, she also received albuterol the department which was helpful. She has using inhaler at home but has not helpful she is having any fevers she has short of breath. She denies any chest pain or pressure, she states she has had some yellow productive sputum was also given prescription for Tylenol 3 patient denies any past COPD, emphysema she states she has never used inhalers before until the last week. She does have history of TIA, hypertension, dyslipidemia is Plavix as well as hypothyroid medications. Related Data Home Medications Medication Instructions Recorded Confirmed levothyroxine [Synthroid] 200 mcg PO DAILY #0 01/17/16 08/08/18 losartan 100 mg PO DAILY #0 01/17/16 08/08/18 amlodipine 10 mg PO DAILY #90 tab 01/18/16 08/08/18 metoprolol succinate [Toprol XL] 100 mg PO DAILY #0 tab 01/18/16 08/08/18 spironolactone [Aldactone] 25 mg PO DAILY #0 09/20/17 08/08/18 atorvastatin 40 mg PO DAILY 08/06/18 08/08/18 clopidogrel 75 mg PO DAILY 08/06/18 08/08/18 mirtazapine 30 mg PO BEDTIME 08/06/18 08/08/18 pantoprazole 40 mg PO BID 08/06/18 08/08/18 pramipexole 0.5 mg PO BEDTIME 08/06/18 08/08/18 Previous Rx's Medication Instructions Recorded albuterol sulfate 2 inhalation INHALATION Q4H PRN 08/06/18 #8.5 gram promethazine-codeine 5 ml PO Q4H PRN #118 ml 08/06/18 Allergies Allergy/AdvReac Type Severity Reaction Status Date / Time No Known Drug Allergies Allergy Verified 08/08/18 07:47 Review of Systems Review of Systems ROS Unobtainable: All systems reviewed & are unremarkable except as noted in HPI and below Constitutional Denies chills, Denies fever(s), Denies lethargy and Denies weakness Cardiovascular Denies chest pain, Denies diaphoresis, Denies irregular heart rhythm, Denies leg edema, Denies lightheadedness, Denies palpitations, Reports dyspnea and Denies orthopnea Respiratory Reports chest congestion, Reports cough, Reports excessive phlegm production ( yellow), Reports dyspnea and Reports wheezing Gastrointestinal Gastrointestinal: Denies abdominal pain, Denies change in bowel habits, Denies diarrhea, Denies nausea and Denies vomiting Neurologic Denies weakness Endocrine Denies palpitations Allergic/Immunologic Reports wheezing PFSH Medical History TIA (transient ischemic attack) (Acute) Social History household members: family and children Smoking Status: Never smoker Exam Narrative Exam Narrative: GEN: well nourished, well appearing female, alert and oriented x 3, patient appears to be in mild distress. HEENT: Atraumatic, pupils are equal round reactive to light, extraocular movements are intact, nares are clear, TMs are clear with no fluid, there is no conjunctival pallor. Throat is clear without any exudates, erythema, tonsillar enlargement or uvular deviation HEART: Regular rate and rhythm without murmur, clicks, rubs. Pulses are equal in upper and lower extremities. No edema bilateral lower extremities. LUNGS:Lungs have equal breath sounds bilaterally, patient has expiratory wheeze bilaterally, no rales, crackles, chest moves symmetrically, patient has mild tachypnea. Mild use of the SCM but no other accessory muscle use noted. ABD:bowel sounds normal, soft, non-tender, no guarding, rebound, rigidity, no masses noted, no hepatosplenomegaly MSCL: Non-tender, no muscle atrophy,full range of motion, normal gait NEURO:CN 2-12 intact, sensation normal Initial Vital Signs Initial Vital Signs: Vital Signs Pulse Rate 79 08/08/18 07:45 Respiratory Rate 18 08/08/18 07:45 Pulse Oximetry 97 08/08/18 07:45 Course Orders Ordered: ED Orders 08/08/18 09:15 B Type Natriuretic Peptide Stat Basic Metabolic Panel Stat Complete Blood Count AUTO DIFF Stat Troponin & CK Cardiac Panel Stat 08/08/18 13:35 Consult to Respiratory Therapy Evaluate & Treat Albuterol/Ipratropium (Duoneb) 3 ml INH RTQ4HR PRN PRN Reason: Shortness Of Breath Ceftriaxone Sodium/Dextrose (Rocephin) 1 gm in 50 mls @ 100 mls/hr IV Q24H KIMBERLI Azithromycin 500 mg/ Dextrose 250 mls @ 250 mls/hr IV Q24H KIMBERLI Prednisone (Deltasone) 40 mg PO DAILY KIMBERLI Discontinued Medications Albuterol (Ventolin) 2.5 mg INH NOW ONE Stop: 08/08/18 08:13 Last Admin: 08/08/18 08:05 Dose: 2.5 mg Albuterol/Ipratropium (Duoneb) 3 ml INH NOW ONE Stop: 08/08/18 07:53 Last Admin: 08/08/18 07:45 Dose: 3 ml Albuterol/Ipratropium (Duoneb) 3 ml INH NOW ONE Stop: 08/08/18 08:08 Last Admin: 08/08/18 07:55 Dose: 3 ml Sodium Chloride (Normal Saline 0.9%) 1,000 mls @ 1,000 mls/hr IV BOLUS ONE Stop: 08/08/18 09:34 Last Infusion: 08/08/18 10:51 Dose: 0 mls/hr Infusion: 08/08/18 10:50 Dose: 250 mls/hr Admin: 08/08/18 09:26 Dose: 1,000 mls/hr Azithromycin 500 mg/ Dextrose 250 mls @ 250 mls/hr IV NOW ONE Stop: 08/08/18 10:34 Last Infusion: 08/08/18 12:09 Dose: 0 mls/hr Admin: 08/08/18 10:50 Dose: 250 mls/hr Methylprednisolone (Solu-Medrol 125 Mg Vial) 125 mg IV NOW ONE Stop: 08/08/18 08:36 Last Admin: 08/08/18 09:26 Dose: 125 mg Prednisone (Deltasone) 60 mg PO NOW ONE Stop: 08/08/18 07:58 Last Admin: 08/08/18 08:05 Dose: 60 mg Vital Signs - 8 hr 08/08/18 09:39 08/08/18 10:30 08/08/18 10:40 Temperature Pulse Rate 77 86 77 Respiratory Rate 28 H 24 Blood Pressure Blood Pressure [Left Arm] 132/64 139/50 L Pulse Oximetry 95 83 L 94 08/08/18 10:56 08/08/18 11:00 08/08/18 11:35 Temperature Pulse Rate 73 74 Respiratory Rate 20 24 Blood Pressure Blood Pressure [Left Arm] 132/56 L 119/60 Pulse Oximetry 90 L 93 08/08/18 11:52 08/08/18 13:42 08/08/18 16:12 Temperature 98 F Pulse Rate 75 73 Respiratory Rate 20 16 Blood Pressure 135/68 135/63 Blood Pressure [Left Arm] Pulse Oximetry 94 97 96 MDM - SOB/Dyspnea Lab Data Attestation: I reviewed the patient's lab results. Result diagrams: 08/08/18 09:15 08/08/18 09:15 Lab Results 08/08/18 08/08/18 Range/Units 09:15 09:15 WBC 9.2 D (4.5-11.0) X10^3/uL RBC 4.02 (4.0-5.2) X10^6/uL Hgb 12.6 (12.0-16.0) g/dL Hct 37.7 (36-46) % MCV 93.8 (80-100) fL MCH 31.2 (26-34) PG MCHC 33.3 (30-36) % RDW 14.1 (11.6-14.8) % Plt Count 188 (150-400) X10^3/uL Neut % (Auto) 72.8 D (50-75) % Lymph % (Auto) 16.4 L (25-40) % [place] % (Auto) 9.5 (3-14) % Eos % (Auto) 0.3 L (2-4) % Baso % (Auto) 1.0 (0-2) % Neut # (Auto) 6700 (2836-6847) /uL Lymph # (Auto) 1500 (5394-7355) /uL [place] # (Auto) 900 (0-900) /uL Eos # (Auto) 0 (0-450) /uL Baso # (Auto) 100 (0-100) /uL Sodium 130 L (137-145) mmol/L Potassium 3.8 (3.4-5.1) mmol/L Chloride 91 L (98-107) mmol/L Carbon Dioxide 27 (22-32) mmol/L BUN 10 (7-17) mg/dL Creatinine 0.80 (0.52-1.04) mg/dL Estimated GFR > 60.0 (>60) mL/min BUN/Creatinine Ratio 12.5 (6-22) Glucose 129 H (80-110) mg/dL Calcium 8.1 L (8.4-10.2) mg/dL Total Creatine Kinase 53 (30-135) U/L CK-MB (CK-2) TNP CK-MB (CK-2) Rel Index TNP Troponin I < 0.012 (0.01-0.034) ng/mL B-Natriuretic Peptide 225 H (<100) Urine Dip Bedside Urine Glucose Negative Bedside Urine Bilirubin - Negative Bedside Urine Ketone - Negative Urine Specific [place] 1.015 Bedside Urine Occult Blood - Negative Bedside Urine pH 6.0 Bedside Urine Protein - Negative Bedside Urine Urobilinogen - Negative Bedside Urine Nitrite - Negative Bedside Urine Leukocytes - Negative Esterase Imaging Data Chest x-ray: Radiologist's impression: [place] [address] XRay Report Signed Patient: Shannan Agarwal R#: [id number] : 6Acct:[id number] Age/Sex: 83 / FDate of Service: 08/08/18 Loc: ED Accession Number: [id number] Procedure: XR chest 2V Ordering Provider: Juliana Jade D.O. PROCEDURE: XR CHEST 2V INDICATIONS: sob, recent influenza history TECHNIQUE: 2 views of the chest were acquired. COMPARISON: , , CHEST 2 VIEW, 07/14/2016, 8:01. , , XR CHEST 2V, 03/25/2018, 9:26. , , XR CHEST 2V, 08/06/2018, 12:01. FINDINGS: Surgical changes and devices: None. Lungs and pleura: Subtle reticular-nodular infiltrates in the right upper lung zone. Bilateral interstitial prominence appears unchanged. No pleural effusions or pneumothorax. Right diaphragmatic eventration. Mediastinum: Mediastinal contours are normal. Heart size is normal. Bones and chest wall: No suspicious bony abnormalities. Soft tissues appear unremarkable. IMPRESSION: Subtle reticular-nodular infiltrates in the right upper lung zone superimposed on diffuse interstitial prominence. Dictated by: Zacarias Barone M.D. on 08/08/2018 at 8:33 Approved by: Zacarias Barone M.D. on 08/08/2018 at 8:36 [facility] Narrative Medical decision making narrative: Patient was treated for influenza the , given albuterol inhaler but continues to have wheezing and shortness of breath. She is not discharged with any prednisone. Plan for chest x-ray to evaluate for influenza related pneumonia. Recheck After DuoNeb x2 and albuterol patient continues to have some wheeze although slightly improved. She can speak with me and sharp sentences. Patient's chest x-ray looks like potentially some developing pneumonia. She does complain of some shortness of breath with exertion that was going on before she had any influenza infection. It is doing worse recently. She states she has felt very minimally but did have heavy 2nd hand tobacco exposure throughout her life. With ambulation patient's oxygenation runs into the 83 range. Sitting in bed she is typically in 88% range. Her wheezing has improved but patient continues to feel little bit short of breath. Patient chest x-ray shows reticular nodule pattern in the right upper lobe. Spoke with the hospitalist about observation, Dr. Noriega accepts. We discussed doing Zithromax an IV, continuing nebs. Patient primary care is Dr. Philly cardoza. Discharge Plan Departure Patient Disposition: Admitted as Observation Clinical Impression: Influenza, Pneumonia Discharge Date/Time: 08/08/18 12:12 Interventions: ED Discharge Assessment Last Done: 08/08/18 12:11 Admit Date/Time: 08/08/18 10:38 Admit Provider: Anne Noriega
--- NOTE | 2018-08-08 07:57 | DI.RAD.S_ITS ---
PROCEDURE: XR CHEST 2V INDICATIONS: sob, recent influenza history TECHNIQUE: 2 views of the chest were acquired. COMPARISON: [facility], CR, CHEST 2 VIEW, 07/14/2016, 8:01. [facility], CR, XR CHEST 2V, 03/25/2018, 9:26. [facility], CR, XR CHEST 2V, 08/06/2018, 12:01. FINDINGS: Surgical changes and devices: None. Lungs and pleura: Subtle reticular-nodular infiltrates in the right upper lung zone. Bilateral interstitial prominence appears unchanged. No pleural effusions or pneumothorax. Right diaphragmatic eventration. Mediastinum: Mediastinal contours are normal. Heart size is normal. Bones and chest wall: No suspicious bony abnormalities. Soft tissues appear unremarkable. IMPRESSION: Subtle reticular-nodular infiltrates in the right upper lung zone superimposed on diffuse interstitial prominence. Dictated by: Zacarias Barone M.D. on 08/08/2018 at 8:33 Approved by: Zacarias Barone M.D. on 08/08/2018 at 8:36
--- NOTE | 2018-08-08 08:02 | ED_ITS ---
HPI - SOB/Dyspnea General Chief Complaint: Shortness of Breath/Dyspnea Stated Complaint: flu, not getting better Time Seen by Provider: 08/08/18 07:52 Source: patient, family and old records reviewed Limitations: no limitations History of Present Illness This an 83-year-old comes to the emergency department with complaint of shortness of breath. Patient states she started having cough and upper respiratory symptoms last . She was seen here on this recent Monday for wheezing and difficulty breathing and was diagnosed with influenza patient was given albuterol inhaler, she also received albuterol the department which was helpful. She has using inhaler at home but has not helpful she is having any fevers she has short of breath. She denies any chest pain or pressure, she states she has had some yellow productive sputum was also given prescription for Tylenol 3 patient denies any past COPD, emphysema she states she has never used inhalers before until the last week. She does have history of TIA, hypertension, dyslipidemia is Plavix as well as hypothyroid medications. Related Data Home Medications Medication Instructions Recorded Confirmed levothyroxine [Synthroid] 200 mcg PO DAILY #0 01/17/16 08/08/18 losartan 100 mg PO DAILY #0 01/17/16 08/08/18 amlodipine 10 mg PO DAILY #90 tab 01/18/16 08/08/18 metoprolol succinate [Toprol XL] 100 mg PO DAILY #0 tab 01/18/16 08/08/18 spironolactone [Aldactone] 25 mg PO DAILY #0 09/20/17 08/08/18 atorvastatin 40 mg PO DAILY 08/06/18 08/08/18 clopidogrel 75 mg PO DAILY 08/06/18 08/08/18 mirtazapine 30 mg PO BEDTIME 08/06/18 08/08/18 pantoprazole 40 mg PO BID 08/06/18 08/08/18 pramipexole 0.5 mg PO BEDTIME 08/06/18 08/08/18 Previous Rx's Medication Instructions Recorded albuterol sulfate 2 inhalation INHALATION Q4H PRN 08/06/18 #8.5 gram promethazine-codeine 5 ml PO Q4H PRN #118 ml 08/06/18 Allergies Allergy/AdvReac Type Severity Reaction Status Date / Time No Known Drug Allergies Allergy Verified 08/08/18 07:47 Review of Systems Review of Systems ROS Unobtainable: All systems reviewed & are unremarkable except as noted in HPI and below Constitutional Denies chills, Denies fever(s), Denies lethargy and Denies weakness Cardiovascular Denies chest pain, Denies diaphoresis, Denies irregular heart rhythm, Denies leg edema, Denies lightheadedness, Denies palpitations, Reports dyspnea and Denies orthopnea Respiratory Reports chest congestion, Reports cough, Reports excessive phlegm production ( yellow), Reports dyspnea and Reports wheezing Gastrointestinal Gastrointestinal: Denies abdominal pain, Denies change in bowel habits, Denies diarrhea, Denies nausea and Denies vomiting Neurologic Denies weakness Endocrine Denies palpitations Allergic/Immunologic Reports wheezing PFSH Medical History TIA (transient ischemic attack) (Acute) Social History household members: family and children Smoking Status: Never smoker Exam Narrative Exam Narrative: GEN: well nourished, well appearing female, alert and oriented x 3, patient appears to be in mild distress. HEENT: Atraumatic, pupils are equal round reactive to light, extraocular movements are intact, nares are clear, TMs are clear with no fluid, there is no conjunctival pallor. Throat is clear without any exudates, erythema, tonsillar enlargement or uvular deviation HEART: Regular rate and rhythm without murmur, clicks, rubs. Pulses are equal in upper and lower extremities. No edema bilateral lower extremities. LUNGS:Lungs have equal breath sounds bilaterally, patient has expiratory wheeze bilaterally, no rales, crackles, chest moves symmetrically, patient has mild tachypnea. Mild use of the SCM but no other accessory muscle use noted. ABD:bowel sounds normal, soft, non-tender, no guarding, rebound, rigidity, no masses noted, no hepatosplenomegaly MSCL: Non-tender, no muscle atrophy,full range of motion, normal gait NEURO:CN 2-12 intact, sensation normal Initial Vital Signs Initial Vital Signs: Vital Signs Pulse Rate 79 08/08/18 07:45 Respiratory Rate 18 08/08/18 07:45 Pulse Oximetry 97 08/08/18 07:45 Course Orders Ordered: ED Orders 08/08/18 09:15 B Type Natriuretic Peptide Stat Basic Metabolic Panel Stat Complete Blood Count AUTO DIFF Stat Troponin & CK Cardiac Panel Stat 08/08/18 13:35 Consult to Respiratory Therapy Evaluate & Treat Albuterol/Ipratropium (Duoneb) 3 ml INH RTQ4HR PRN PRN Reason: Shortness Of Breath Ceftriaxone Sodium/Dextrose (Rocephin) 1 gm in 50 mls @ 100 mls/hr IV Q24H KIMBERLI Azithromycin 500 mg/ Dextrose 250 mls @ 250 mls/hr IV Q24H KIMBERLI Prednisone (Deltasone) 40 mg PO DAILY KIMBERLI Discontinued Medications Albuterol (Ventolin) 2.5 mg INH NOW ONE Stop: 08/08/18 08:13 Last Admin: 08/08/18 08:05 Dose: 2.5 mg Albuterol/Ipratropium (Duoneb) 3 ml INH NOW ONE Stop: 08/08/18 07:53 Last Admin: 08/08/18 07:45 Dose: 3 ml Albuterol/Ipratropium (Duoneb) 3 ml INH NOW ONE Stop: 08/08/18 08:08 Last Admin: 08/08/18 07:55 Dose: 3 ml Sodium Chloride (Normal Saline 0.9%) 1,000 mls @ 1,000 mls/hr IV BOLUS ONE Stop: 08/08/18 09:34 Last Infusion: 08/08/18 10:51 Dose: 0 mls/hr Infusion: 08/08/18 10:50 Dose: 250 mls/hr Admin: 08/08/18 09:26 Dose: 1,000 mls/hr Azithromycin 500 mg/ Dextrose 250 mls @ 250 mls/hr IV NOW ONE Stop: 08/08/18 10:34 Last Infusion: 08/08/18 12:09 Dose: 0 mls/hr Admin: 08/08/18 10:50 Dose: 250 mls/hr Methylprednisolone (Solu-Medrol 125 Mg Vial) 125 mg IV NOW ONE Stop: 08/08/18 08:36 Last Admin: 08/08/18 09:26 Dose: 125 mg Prednisone (Deltasone) 60 mg PO NOW ONE Stop: 08/08/18 07:58 Last Admin: 08/08/18 08:05 Dose: 60 mg Vital Signs - 8 hr 08/08/18 09:39 08/08/18 10:30 08/08/18 10:40 Temperature Pulse Rate 77 86 77 Respiratory Rate 28 H 24 Blood Pressure Blood Pressure [Left Arm] 132/64 139/50 L Pulse Oximetry 95 83 L 94 08/08/18 10:56 08/08/18 11:00 08/08/18 11:35 Temperature Pulse Rate 73 74 Respiratory Rate 20 24 Blood Pressure Blood Pressure [Left Arm] 132/56 L 119/60 Pulse Oximetry 90 L 93 08/08/18 11:52 08/08/18 13:42 08/08/18 16:12 Temperature 98 F Pulse Rate 75 73 Respiratory Rate 20 16 Blood Pressure 135/68 135/63 Blood Pressure [Left Arm] Pulse Oximetry 94 97 96 MDM - SOB/Dyspnea Lab Data Attestation: I reviewed the patient's lab results. Result diagrams: 08/08/18 09:15 08/08/18 09:15 Lab Results 08/08/18 08/08/18 Range/Units 09:15 09:15 WBC 9.2 D (4.5-11.0) X10^3/uL RBC 4.02 (4.0-5.2) X10^6/uL Hgb 12.6 (12.0-16.0) g/dL Hct 37.7 (36-46) % MCV 93.8 (80-100) fL MCH 31.2 (26-34) PG MCHC 33.3 (30-36) % RDW 14.1 (11.6-14.8) % Plt Count 188 (150-400) X10^3/uL Neut % (Auto) 72.8 D (50-75) % Lymph % (Auto) 16.4 L (25-40) % [place] % (Auto) 9.5 (3-14) % Eos % (Auto) 0.3 L (2-4) % Baso % (Auto) 1.0 (0-2) % Neut # (Auto) 6700 (4625-0152) /uL Lymph # (Auto) 1500 (4955-3205) /uL [place] # (Auto) 900 (0-900) /uL Eos # (Auto) 0 (0-450) /uL Baso # (Auto) 100 (0-100) /uL Sodium 130 L (137-145) mmol/L Potassium 3.8 (3.4-5.1) mmol/L Chloride 91 L (98-107) mmol/L Carbon Dioxide 27 (22-32) mmol/L BUN 10 (7-17) mg/dL Creatinine 0.80 (0.52-1.04) mg/dL Estimated GFR > 60.0 (>60) mL/min BUN/Creatinine Ratio 12.5 (6-22) Glucose 129 H (80-110) mg/dL Calcium 8.1 L (8.4-10.2) mg/dL Total Creatine Kinase 53 (30-135) U/L CK-MB (CK-2) TNP CK-MB (CK-2) Rel Index TNP Troponin I < 0.012 (0.01-0.034) ng/mL B-Natriuretic Peptide 225 H (<100) Urine Dip Bedside Urine Glucose Negative Bedside Urine Bilirubin - Negative Bedside Urine Ketone - Negative Urine Specific [place] 1.015 Bedside Urine Occult Blood - Negative Bedside Urine pH 6.0 Bedside Urine Protein - Negative Bedside Urine Urobilinogen - Negative Bedside Urine Nitrite - Negative Bedside Urine Leukocytes - Negative Esterase Imaging Data Chest x-ray: Radiologist's impression: [place] [address] XRay Report Signed Patient: Shannan Agarwal R#: [id number] : 6Acct:[id number] Age/Sex: 83 / FDate of Service: 08/08/18 Loc: ED Accession Number: [id number] Procedure: XR chest 2V Ordering Provider: Juliana Jade D.O. PROCEDURE: XR CHEST 2V INDICATIONS: sob, recent influenza history TECHNIQUE: 2 views of the chest were acquired. COMPARISON: [facility], , CHEST 2 VIEW, 07/14/2016, 8:01. [facility], , XR CHEST 2V, 03/25/2018, 9:26. [facility], , XR CHEST 2V, 08/06/2018, 12:01. FINDINGS: Surgical changes and devices: None. Lungs and pleura: Subtle reticular-nodular infiltrates in the right upper lung zone. Bilateral interstitial prominence appears unchanged. No pleural effusions or pneumothorax. Right diaphragmatic eventration. Mediastinum: Mediastinal contours are normal. Heart size is normal. Bones and chest wall: No suspicious bony abnormalities. Soft tissues appear unremarkable. IMPRESSION: Subtle reticular-nodular infiltrates in the right upper lung zone superimposed on diffuse interstitial prominence. Dictated by: Zacarias Barone M.D. on 08/08/2018 at 8:33 Approved by: Zacarias Barone M.D. on 08/08/2018 at 8:[address] [facility] Narrative Medical decision making narrative: Patient was treated for influenza the , given albuterol inhaler but continues to have wheezing and shortness of breath. She is not discharged with any prednisone. Plan for chest x-ray to evaluate for influenza related pneumonia. Recheck After DuoNeb x2 and albuterol patient continues to have some wheeze although slightly improved. She can speak with me and sharp sentences. Patient's chest x-ray looks like potentially some developing pneumonia. She does complain of some shortness of breath with exertion that was going on before she had any influenza infection. It is doing worse recently. She states she has felt very minimally but did have heavy 2nd hand tobacco exposure throughout her life. With ambulation patient's oxygenation runs into the 83 range. Sitting in bed she is typically in 88% range. Her wheezing has improved but patient continues to feel little bit short of breath. Patient chest x-ray shows reticular nodule pattern in the right upper lobe. Spoke with the hospitalist about observation, Dr. Noriega accepts. We discussed doing Zithromax an IV, continuing nebs. Patient primary care is Dr. Philly cardoza. Discharge Plan Departure Patient Disposition: Admitted as Observation Clinical Impression: Influenza, Pneumonia Discharge Date/Time: 08/08/18 12:12 Interventions: ED Discharge Assessment Last Done: 08/08/18 12:11 Admit Date/Time: 08/08/18 10:38 Admit Provider: Anne Noriega
[2018-08-08] MEDS: ALBUTEROL 2.5 MG/3 ML NEB (ADULT) INH (08:05)
[2018-08-08] MEDS: predniSONE 20 MG TABLET 60 MG PO (08:05)
[2018-08-08] MEDS: methylPREDNISolone 125 MG/2 ML VIAL IV (09:26)
[2018-08-08] MEDS: SODIUM CHLORIDE 0.9% 1,000 ML 1000 ML IV (09:26)
[2018-08-08 09:27] LABS: Add Manual Diff / Slide Review NO; Basophils Absolute Auto 100 /uL (0-100); Eosinophils Absolute Auto 0 /uL (0-450); Eosinophils Percent Auto 0.3 % (2-4); Hematocrit 37.7 % (36-46); Hemoglobin 12.6 g/dL (12.0-16.0); Lymphocytes Absolute Auto 1500 /uL (1100-4500); Lymphocytes Percent Auto 16.4 % (25-40); Mean Corpuscular HGB Conc 33.3 % (30-36); Mean Corpuscular Hemoglobin 31.2 PG (26-34); Mean Corpuscular Volume 93.8 fL (80-100); Monocytes Absolute Auto 900 /uL (0-900); Monocytes Percent Auto 9.5 % (3-14); Neutrophils Absolute Auto 6700 /uL (1500-7000); Neutrophils Percent Auto 72.8 % (50-75); Platelet Count 188 X10^3/uL (150-400); Red Blood Cell Count 4.02 X10^6/uL (4.0-5.2); Red Cell Distribution Width 14.1 % (11.6-14.8); White Blood Cell Count 9.2 X10^3/uL (4.5-11.0)
--- NOTE | 2018-08-08 09:40 | PC.NURSE ---
by nursing home admissions director annamarie along with instructor
[2018-08-08 09:44] LABS: BUN Creatinine Ratio 12.5 (6-22); Blood Urea Nitrogen 10 mg/dL (7-17); Calcium 8.1 mg/dL (8.4-10.2); Carbon Dioxide 27 mmol/L (22-32); Chloride 91 mmol/L (98-107); Creatine Kinase 53 U/L (30-135); Estimated Glomerular Filt Rate > 60.0 mL/min (>60); Glucose 129 mg/dL (80-110); HEMOLYSIS 32 (0-50); Potassium 3.8 mmol/L (3.4-5.1); Sodium 130 mmol/L (137-145)
[2018-08-08 09:50] LABS: B Type Natriuretic Peptide 225 (<100)
[2018-08-08 09:55] LABS: Troponin I < 0.012 ng/mL (0.01-0.034)
[2018-08-08] MEDS: AZITHROMYCIN 500 MG in DEXTROSE 5% IN WATER 250 ML IV ×2 (10:50→19:42)
--- NOTE | 2018-08-08 10:58 | PC.NURSE ---
condition improved, +aeration, with minimal ins wheezing.
--- NOTE | 2018-08-08 13:40 | PC.NURSE ---
admission note pt admitted 1245 for worsening SOB positive for influenza A and developing PNA, a/ox3, no c/o pain, SOB while lying in bed on 2L nc, SpO2 remains in upper 90's, ambulating SBA to bathroom. will continue to monitor, bed in lowest locked position and call light within reach.
--- NOTE | 2018-08-08 14:47 | PC.NURSE ---
Patient was admitted from ER to 228 at 1245. Oriented to room and call light. VSS. 94% on 2L NC, continuous pulse ox in place. Droplet precautions in place for influenza. Dr. Noriega notified of patient's arrival, R.T. protocol with stephany ordered as written.
--- NOTE | 2018-08-08 17:34 | PM.HP.1 ---
History of Present Illness Date Patient Seen: 08/08/18 Time Patient Seen: 17:43 Chief complaint: flu, not getting better Narrative: 83-year-old female with past medical history of hypertension, TIA, GERD, hyperlipidemia, restless leg syndrome, hypothyroidism presented to emergency department with shortness of breath. Patient states she started having upper respiratory symptoms 7 days ago. It started out as cough with yellowish mucus production, and rhinorrhea. Patient denied any fevers or chills, loss of consciousness, dizziness or blurry vision, sore throat. At that time patient did have increasing pleurisy with coughing. As the time progressed, patient started to experience severe shortness of breath and dyspnea on exertion. Her symptoms got so bad, that she came to emergency department two days ago. At that time patient was diagnosed with influenza a virus. She was given nebulizer treatments and discharged home with cough medicine. Nevertheless, patient's condition did not improve in her breathing continued to get worse. Today patient was having hard time speaking due to shortness of breath and was therefore brought back to ED by her daughter. Aside from above symptoms, patient denied any nausea, vomiting, diarrhea, constipation, abdominal pain. She denied any symptoms. Denies any cardiac chest pain. Patient denies any sick contacts or recent traveling. In ED, patient's vitals were stable including pulse of 79, respiratory rate of 18, saturating 97% on room air, with blood pressure of 146/32. She was afebrile at 98F. Patient was noted to be wheezing. Lab work revealed normal CBC, as well as normal BMP with exception of sodium at 130, chloride at 91, and blood glucose at 129. BNP was slightly elevated at 225. Chest x-ray was done which revealed subtle reticular nodular infiltrates in the right upper lung zones superimposed on diffuse interstitial prominence, concerning for pneumonia. Patient was given 3 DuoNeb treatments, as well as Solu-Medrol 125 mg IV, and 0.9 NS 1 L bolus. Patient's condition improved. She was then ambulated with respiratory therapist for oxygen evaluation and desaturated to 83%. Patient was given azithromycin 500 mg IV, and ceftriaxone 1 g IV and was transferred to general medical floors for further management of superimposed bacterial pneumonia on influenza. Patient History Medical History TIA (transient ischemic attack) (Resolved) Community acquired pneumonia (Acute) Diverticulosis (Chronic) GERD (gastroesophageal reflux disease) (Chronic) HTN (hypertension) (Chronic) Hypothyroidism (Chronic) Restless leg syndrome (Chronic) Surgical History H/O thyroidectomy (Chronic) History of total left knee replacement (Chronic) S/P cholecystectomy (Chronic) Social History household members: family and children Smoking Status: Never smoker Family & Social History Social History: household members family,children Prior Living Arrangements House Safety & Behavioral: Feels Safe in Current Yes Environment Been Physically Hurt or No Threatened By a Person Suicidal Ideation Description None Suicide Plan Description No Plan Tobacco & Substance use: Smoking Status Never smoker, but is exposed to second hand smoke alcohol intake frequency 0-2 drinks per day Substance Use Type does not use Meds Home Medications Medication Instructions Recorded Confirmed Type levothyroxine [Synthroid] 200 mcg PO DAILY #0 01/17/16 08/08/18 History losartan 100 mg PO DAILY #0 01/17/16 08/08/18 History amlodipine 10 mg PO DAILY #90 tab 01/18/16 08/08/18 History metoprolol succinate [Toprol XL] 100 mg PO DAILY #0 tab 01/18/16 08/08/18 History spironolactone [Aldactone] 25 mg PO DAILY #0 09/20/17 08/08/18 History albuterol sulfate 2 inhalation INHALATION Q4H PRN 08/06/18 08/08/18 Rx #8.5 gram atorvastatin 40 mg PO DAILY 08/06/18 08/08/18 History clopidogrel 75 mg PO DAILY 08/06/18 08/08/18 History mirtazapine 30 mg PO BEDTIME 08/06/18 08/08/18 History pantoprazole 40 mg PO BID 08/06/18 08/08/18 History pramipexole 0.5 mg PO BEDTIME 08/06/18 08/08/18 History promethazine-codeine 5 ml PO Q4H PRN #118 ml 08/06/18 08/08/18 Rx Allergies Allergy/AdvReac Type Severity Reaction Status Date / Time No Known Drug Allergies Allergy Verified 08/08/18 07:47 Review of Systems Review of Systems All systems reviewed & are unremarkable except as noted in HPI and below Exam Vital Signs (past 8 hours): - 08/08/18 09:39 08/08/18 10:30 08/08/18 10:40 Temperature Pulse Rate 77 86 77 Respiratory Rate 28 H 24 Blood Pressure Blood Pressure [Left Arm] 132/64 139/50 L Pulse Oximetry 95 83 L 94 08/08/18 10:56 08/08/18 11:00 08/08/18 11:35 Temperature Pulse Rate 73 74 Respiratory Rate 20 24 Blood Pressure Blood Pressure [Left Arm] 132/56 L 119/60 Pulse Oximetry 90 L 93 08/08/18 11:52 08/08/18 13:42 08/08/18 16:12 Temperature 98 F Pulse Rate 75 73 Respiratory Rate 20 16 Blood Pressure 135/68 135/63 Blood Pressure [Left Arm] Pulse Oximetry 94 97 96 Fraction of Inspired Oxygen 21 Oxygen Delivery Method Nasal Cannula Oxygen Flow Rate 2 Narrative Exam Narrative: General: No acute distress, A/O x3 HEENT: PERRLA and EOMI bilaterally. Moist mucous membranes. Neck: Supple, no LAD CV: Regular rate rhythm, no murmurs or gallops Respiratory: No wheezing appreciated. Lungs are clear to auscultation bilaterally. No rhonchi appreciated GI: Positive bowel sounds in all 4 quadrants, nontender. No organomegaly. Musculoskeletal: Normal range of motion in all limbs Extremities: No edema Skin: No bruising or rashes Neuro: No focal deficits, AAO x3 Psych: Mood is appropriate, able to make her own decisions Objective Labs Result Diagrams: 08/08/18 09:15 08/08/18 09:15 Labs: Laboratory Results - last 24 hr 08/08/18 08/08/18 09:15 09:15 WBC 9.2 D RBC 4.02 Hgb 12.6 Hct 37.7 MCV 93.8 MCH 31.2 MCHC 33.3 RDW 14.1 Plt Count 188 Neut % (Auto) 72.8 D Lymph % (Auto) 16.4 L [place] % (Auto) 9.5 Eos % (Auto) 0.3 L Baso % (Auto) 1.0 Neut # (Auto) 6700 Lymph # (Auto) 1500 [place] # (Auto) 900 Eos # (Auto) 0 Baso # (Auto) 100 Sodium 130 L Potassium 3.8 Chloride 91 L Carbon Dioxide 27 BUN 10 Creatinine 0.80 Estimated GFR > 60.0 BUN/Creatinine Ratio 12.5 Glucose 129 H Calcium 8.1 L Total Creatine Kinase 53 CK-MB (CK-2) TNP CK-MB (CK-2) Rel Index TNP Troponin I < 0.012 B-Natriuretic Peptide 225 H Assessment & Plan Assessment & Plan narrative: 83-year-old female with past medical history of hypertension, hyperlipidemia, hypothyroidism, GERD, restless leg syndrome, TIA presented to emergency department with shortness of breath. She was found to have a superimposed bacterial pneumonia on previously diagnosed influenza virus. Admitted for further management 1. Community-acquired pneumonia versus superimposed bacterial pneumonia -patient was diagnosed with influenza a virus 2 days ago but not treated due to the outside timeframe -patient is afebrile and hemodynamically stable, with no leukocytosis -chest x-ray revealed subtle reticular nodular infiltrates in the right upper lung zone superimposed on diffuse interstitial prominence -patient was given azithromycin and ceftriaxone in ED, will continue -blood cultures and sputum cultures ordered, will follow up -continue duo nebs q.4 hours as needed for wheezing -continue O2 therapy to keep saturations above 92% -continue cough syrup 2. Hyponatremia/hypochloremia -possibly due to dehydration given acute illness -patient received 1 L NS bolus in ED, will continue light hydration at 100 cc/hour for 1 more L -follow-up with labs in the morning 3. Hypertension -blood pressure stable at this time -resume home medications metoprolol succinate, amlodipine, and losartan -monitor blood pressure 4. Hypothyroidism -due to thyroid resection in the past -resume levothyroxine 200 mcg p.o. daily 5. History of TIA -resume Plavix and atorvastatin 6. GERD -resume pantoprazole b.i.d. 7. Restless leg syndrome -resume pramipexole home regimen Full code DVT prophylaxis with Lovenox subcu Disposition: Patient is to be treated for community acquired versus superimposed pneumonia with IV antibiotics. Pending cultures Total admission time> 30 min
[2018-08-08] MEDS: CEFTRIAXONE 1 GM/50 ML FROZ.PIGGY IV (18:21)
[2018-08-08] MEDS: SODIUM CHLORIDE 0.45% 1,000 ML 100 ML IV (18:24)
[2018-08-08] MEDS: PRAMIPEXOLE 0.25 MG TABLET 0.5 MG PO (20:57)
[2018-08-08] MEDS: PANTOPRAZOLE 40 MG TABLET PO (20:58)
[2018-08-08] MEDS: MIRTAZAPINE 15 MG TABLET 30 MG PO (20:58)
--- NOTE | 2018-08-08 23:18 | PC.NURSE ---
around 2100- IVF dc'd per provider order. RT reports that pt has crackles and recommended fluids to be dc'd. pt has bilat LE pitting edema +1. pt is afebrile. denied pain. SOB w/exertion. 94-96% 2L. call light in reach. bed alarm active.
[2018-08-09] VITALS (15 sets, daily range): BP systolic 98–151; BP diastolic 53–71; PULSE 65–77; RESP 17–22; TEMP 36.3–37.1; O2SAT 94–99
[2018-08-09 05:28] LABS: Add Manual Diff / Slide Review NO; Basophils Absolute Auto 0 /uL (0-100); Basophils Percent Auto 0.1 % (0-2); Eosinophils Absolute Auto 0 /uL (0-450); Hematocrit 35.8 % (36-46); Hemoglobin 12.1 g/dL (12.0-16.0); Lymphocytes Absolute Auto 1200 /uL (1100-4500); Lymphocytes Percent Auto 11.9 % (25-40); Mean Corpuscular HGB Conc 33.7 % (30-36); Mean Corpuscular Hemoglobin 31.1 PG (26-34); Mean Corpuscular Volume 92.1 fL (80-100); Monocytes Absolute Auto 400 /uL (0-900); Monocytes Percent Auto 4.5 % (3-14); Neutrophils Absolute Auto 8200 /uL (1500-7000); Neutrophils Percent Auto 83.5 % (50-75); Platelet Count 183 X10^3/uL (150-400); Red Blood Cell Count 3.89 X10^6/uL (4.0-5.2); White Blood Cell Count 9.8 X10^3/uL (4.5-11.0)
[2018-08-09 05:36] LABS: Blood Urea Nitrogen 14 mg/dL (7-17); Calcium 8.6 mg/dL (8.4-10.2); Carbon Dioxide 26 mmol/L (22-32); Chloride 96 mmol/L (98-107); Estimated Glomerular Filt Rate > 60.0 mL/min (>60); Glucose 161 mg/dL (80-110); HEMOLYSIS < 15 (0-50); Potassium 4.1 mmol/L (3.4-5.1); Sodium 132 mmol/L (137-145)
[2018-08-09] MEDS: LEVOTHYROXINE 100 MCG TABLET 200 MCG PO (05:48)
[2018-08-09] MEDS: SPIRONOLACTONE 25 MG TABLET PO (08:07)
[2018-08-09] MEDS: CLOPIDOGREL 75 MG TABLET PO (08:07)
[2018-08-09] MEDS: AMLODIPINE 5 MG TABLET 10 MG PO (08:08)
[2018-08-09] MEDS: predniSONE 20 MG TABLET 40 MG PO (08:08)
[2018-08-09] MEDS: LOSARTAN 50 MG TABLET 100 MG PO (08:08)
[2018-08-09] MEDS: METOPROLOL ER 50 MG TABLET 100 MG PO (08:08)
[2018-08-09] MEDS: ENOXAPARIN 40 MG/0.4 ML SYRINGE SUBCUT (08:09)
[2018-08-09] MEDS: PANTOPRAZOLE 40 MG TABLET PO ×2 (08:14→20:42)
--- NOTE | 2018-08-09 09:19 | PC.NURSE ---
Patient awake and pleasant, conversant. States breathing is feeling a little better today. 96% on 2L NC, then able to tolerate room air this morning when seen by RT, 95% on RA. Up with SB assistance, tolerating meals, voiding without difficulty. Call light within reach, bed alarm for safety. Continue to monitor.
--- NOTE | 2018-08-09 13:48 | P.PN_ITS ---
Subjective Date Patient Seen: 08/09/18 Time Patient Seen: 13:42 Interval history: Follow-up on community-acquired pneumonia versus superimposed bacterial pneumonia Patient seen at bedside. Patient is doing well. She was successfully titrated off oxygen while laying down, however did not get tested on ovulation. She continues to have cough with mucus production. She continues to have wheezing episodes intermittently requiring DuoNeb treatment. No acute overnight events. Exam Vital Signs (past 8 hours): - 08/09/18 07:45 08/09/18 08:08 08/09/18 08:38 Temperature 97.3 F L Pulse Rate 66 Respiratory Rate 19 Blood Pressure 135/67 135/67 Pulse Oximetry 96 99 08/09/18 09:20 08/09/18 09:50 08/09/18 10:44 Temperature Pulse Rate 66 Respiratory Rate 18 Blood Pressure Pulse Oximetry 98 95 95 08/09/18 11:39 Temperature 98 F Pulse Rate 69 Respiratory Rate 22 Blood Pressure 140/62 Pulse Oximetry 97 Fraction of Inspired Oxygen 21 Oxygen Delivery Method Room Air Oxygen Flow Rate 0 Narrative Exam Narrative: General: No acute distress, A/O x3 HEENT: PERRLA and EOMI bilaterally. Moist mucous membranes. Neck: Supple, no LAD CV: Regular rate rhythm, no murmurs or gallops Respiratory: No wheezing appreciated. Mild rhonchi appear at the mid lung trisha on BL today GI: Positive bowel sounds in all 4 quadrants, nontender. No organomegaly. Musculoskeletal: Normal range of motion in all limbs Extremities: No edema Skin: No bruising or rashes Neuro: No focal deficits, AAO x3 Psych: Mood is appropriate, able to make her own decisions Objective Labs Result Diagrams: 08/09/18 05:00 08/09/18 05:00 Labs: Laboratory Results - last 24 hr 08/09/18 08/09/18 05:00 05:00 WBC 9.8 RBC 3.89 L Hgb 12.1 Hct 35.8 L MCV 92.1 MCH 31.1 MCHC 33.7 RDW 14.0 Plt Count 183 Neut % (Auto) 83.5 H Lymph % (Auto) 11.9 L [place] % (Auto) 4.5 Eos % (Auto) 0.0 L Baso % (Auto) 0.1 Neut # (Auto) 8200 H Lymph # (Auto) 1200 [place] # (Auto) 400 Eos # (Auto) 0 Baso # (Auto) 0 Sodium 132 L Potassium 4.1 Chloride 96 L Carbon Dioxide 26 BUN 14 Creatinine 0.70 Estimated GFR > 60.0 BUN/Creatinine Ratio 20.0 Glucose 161 H Calcium 8.6 Assessment & Plan Assessment & Plan narrative: 83-year-old female with past medical history of hypertension, hyperlipidemia, hypothyroidism, GERD, restless leg syndrome, TIA presented to emergency department with shortness of breath. She was found to have a superimposed bacterial pneumonia on previously diagnosed influenza virus. Admitted for further management 1. Community-acquired pneumonia versus superimposed bacterial pneumonia -Improving -patient was diagnosed with influenza a virus 2 days prior to admission -Continues to be afebrile and hemodynamically stable, with no leukocytosis -chest x-ray revealed subtle reticular nodular infiltrates in the right upper lung zone superimposed on diffuse interstitial prominence -Continue azithromycin and ceftriaxone IV until cultures are back -continue duo nebs q.4 hours as needed for wheezing -continue O2 therapy to keep saturations above 92% -continue cough syrup 2. Hyponatremia/hypochloremia -Improving -continue to monitor 3. Hypertension -blood pressure stable at this time -continue home medications metoprolol succinate, amlodipine, and losartan -monitor blood pressure 4. Hypothyroidism -due to thyroid resection in the past -continue levothyroxine 200 mcg p.o. daily 5. History of TIA -continue Plavix and atorvastatin 6. GERD -continue pantoprazole b.i.d. 7. Restless leg syndrome -continue pramipexole home regimen Full code DVT prophylaxis with Lovenox subQ Disposition: Continuing treatment for CAP vs superimposed bacterial pneumonia. Pending cultures
[2018-08-09] MEDS: ACETAMINOPHEN 325 MG TABLET 650 MG PO (14:57)
[2018-08-09] MEDS: CEFTRIAXONE 1 GM/50 ML FROZ.PIGGY IV (17:18)
[2018-08-09] MEDS: AZITHROMYCIN 500 MG in DEXTROSE 5% IN WATER 250 ML IV (18:19)
[2018-08-09] MEDS: ATORVASTATIN 20 MG TABLET 40 MG PO (20:42)
[2018-08-09] MEDS: MIRTAZAPINE 15 MG TABLET 30 MG PO (20:42)
[2018-08-09] MEDS: PRAMIPEXOLE 0.25 MG TABLET 0.5 MG PO (20:42)
[2018-08-09] MEDS: SODIUM CHLORIDE 0.9% FLUSH 10 ML IV (20:43)
[2018-08-09] MEDS: ALBUTEROL/IPRATROPIUM 3 ML AMPUL INH (20:51)
--- NOTE | 2018-08-09 21:48 | PC.NURSE ---
Evening shift note: pt alert and oriented and able to make needs know to staff. pt denied pain and denied sob while in bed. pt complained of restless leg and walked around the morrow. During walk pt complained of sob during walk and paused for a break. completed walk back to room with no complaint of sob. O2 sat after walking was 96% on room air. Patient has begun coughing and wheezing this evening, administered nebulizer treatment as per orders pt denies sob. Upon flushing the IV noticed that the tubing was beginning to cause redness where it has been lying. Readjusted the IV tubing to lay the opposite direction and not against the reddened area. reinforced call light use, call light in reach.
[2018-08-10] VITALS: BP 135/68; PULSE 86; RESP 20; TEMP 36.6; O2SAT 92; O2SAT 97
[2018-08-10 04:00] VITALS: BP 141/67; PULSE 77; RESP 18; TEMP 36.8; O2SAT 99
--- NOTE | 2018-08-10 04:57 | PC.NURSE ---
Pt continues to have a cough with phlegm, expiratory wheezes and congested upper airways. Prn neb treatment was not very helpful. +1-2 edema bilateral ankles.
[2018-08-10] MEDS: LEVOTHYROXINE 100 MCG TABLET 200 MCG PO (05:51)
[2018-08-10] MEDS: PANTOPRAZOLE 40 MG TABLET PO (05:52)
[2018-08-10 06:08] LABS: Add Manual Diff / Slide Review NO; Basophils Absolute Auto 0 /uL (0-100); Basophils Percent Auto 0.1 % (0-2); Eosinophils Absolute Auto 0 /uL (0-450); Hematocrit 37.7 % (36-46); Hemoglobin 12.5 g/dL (12.0-16.0); Lymphocytes Absolute Auto 2600 /uL (1100-4500); Lymphocytes Percent Auto 14.9 % (25-40); Mean Corpuscular HGB Conc 33.1 % (30-36); Mean Corpuscular Hemoglobin 30.6 PG (26-34); Mean Corpuscular Volume 92.4 fL (80-100); Monocytes Absolute Auto 1300 /uL (0-900); Monocytes Percent Auto 7.5 % (3-14); Neutrophils Absolute Auto 13300 /uL (1500-7000); Neutrophils Percent Auto 77.5 % (50-75); Platelet Count 231 X10^3/uL (150-400); Red Blood Cell Count 4.08 X10^6/uL (4.0-5.2); Red Cell Distribution Width 14.1 % (11.6-14.8); White Blood Cell Count 17.1 X10^3/uL (4.5-11.0)
[2018-08-10 06:37] LABS: Blood Urea Nitrogen 22 mg/dL (7-17); Carbon Dioxide 29 mmol/L (22-32); Chloride 97 mmol/L (98-107); Estimated Glomerular Filt Rate 53.1 mL/min (>60); Glucose 118 mg/dL (80-110); HEMOLYSIS < 15 (0-50); Potassium 4.3 mmol/L (3.4-5.1); Sodium 134 mmol/L (137-145)
[2018-08-10 07:45] VITALS: BP 134/67; PULSE 68; RESP 20; TEMP 36.4; O2SAT 98
[2018-08-10 08:13] LABS: Procalcitonin 0.06 ng/mL (<0.5)
[2018-08-10 09:00] VITALS: O2SAT 93
[2018-08-10] MEDS: SODIUM CHLORIDE 0.9% FLUSH 10 ML IV (09:24)
[2018-08-10] MEDS: predniSONE 20 MG TABLET 40 MG PO (09:24)
[2018-08-10] MEDS: ENOXAPARIN 40 MG/0.4 ML SYRINGE SUBCUT (09:24)
[2018-08-10] MEDS: METOPROLOL ER 50 MG TABLET 100 MG PO (09:24)
[2018-08-10] MEDS: SPIRONOLACTONE 25 MG TABLET PO (09:24)
[2018-08-10] MEDS: AMLODIPINE 5 MG TABLET 10 MG PO (09:25)
[2018-08-10] MEDS: LOSARTAN 50 MG TABLET 100 MG PO (09:25)
[2018-08-10] MEDS: CLOPIDOGREL 75 MG TABLET PO (09:25)
[2018-08-10] MEDS: CODEINE/GUAIFENESIN LIQUID 5ML UDC 5 ML PO (09:30)
--- NOTE | 2018-08-10 10:25 | PM.DS.1 ---
History of Present Illness Date Patient Seen: 08/10/18 Time Patient Seen: 10:26 Chief complaint: flu, not getting better Narrative: 83-year-old female with past medical history of hypertension, TIA, GERD, hyperlipidemia, restless leg syndrome, hypothyroidism presented to emergency department with shortness of breath. Patient states she started having upper respiratory symptoms 7 days ago. It started out as cough with yellowish mucus production, and rhinorrhea. Patient denied any fevers or chills, loss of consciousness, dizziness or blurry vision, sore throat. At that time patient did have increasing pleurisy with coughing. As the time progressed, patient started to experience severe shortness of breath and dyspnea on exertion. Her symptoms got so bad, that she came to emergency department two days ago. At that time patient was diagnosed with influenza a virus. She was given nebulizer treatments and discharged home with cough medicine. Nevertheless, patient's condition did not improve in her breathing continued to get worse. Today patient was having hard time speaking due to shortness of breath and was therefore brought back to ED by her daughter. Aside from above symptoms, patient denied any nausea, vomiting, diarrhea, constipation, abdominal pain. She denied any symptoms. Denies any cardiac chest pain. Patient denies any sick contacts or recent traveling. Discharge Providers Date of admission: 08/08/18 10:38 Discharge Date: 08/10/18 Primary care physician: Philly Merrill MD Consults: 08/08/18 13:35 Consult to Respiratory Therapy Evaluate & Treat Comment: Physician Instructions: Evaluate and treat 08/08/18 17:29 Consult to Respiratory Therapy Evaluate & Treat Comment: Physician Instructions: Evaluate and treat Discharge provider: Anne Noriega MD Summary Hospital Course: In ED, patient's vitals were stable including pulse of 79, respiratory rate of 18, saturating 97% on room air, with blood pressure of 146/32. She was afebrile at 98F. Patient was noted to be wheezing. Lab work revealed normal CBC, as well as normal BMP with exception of sodium at 130, chloride at 91, and blood glucose at 129. BNP was slightly elevated at 225. Chest x-ray was done which revealed subtle reticular nodular infiltrates in the right upper lung zones superimposed on diffuse interstitial prominence, concerning for pneumonia. Patient was given 3 DuoNeb treatments, as well as Solu-Medrol 125 mg IV, and 0.9 NS 1 L bolus. Patient's condition improved. She was then ambulated with respiratory therapist for oxygen evaluation and desaturated to 83%. Patient was given azithromycin 500 mg IV, and ceftriaxone 1 g IV and was transferred to general medical floors for further management of superimposed bacterial pneumonia on influenza. On the floors, patient was continued on Ceftriaxone and Azithromycin IV. Nebs continued Q4H PRN. Over the hospital stay, patient was successfully weaned off oxygen, and was able to ambulate without deoxygenation. Her blood cultures came back negative for any growth. Her sputum cultures preliminary showed many WBCs with scant gram-positive cocci. Since she already recieved Azithromycin 500mg IV x3 doses, Patient was switched to Augmentin to complete a 7 total days of antibiotic therapy. Exam Vital Signs (past 8 hours): - 08/10/18 04:00 08/10/18 07:45 Temperature 98.3 F 97.5 F L Pulse Rate 77 68 Respiratory Rate 18 20 Blood Pressure 141/67 H 134/67 Pulse Oximetry 99 98 Fraction of Inspired Oxygen 21 Oxygen Delivery Method Room Air Oxygen Flow Rate 1 Narrative Exam Narrative: General: No acute distress, A/O x3 HEENT: PERRLA and EOMI bilaterally. Moist mucous membranes. Neck: Supple, no LAD CV: Regular rate rhythm, no murmurs or gallops Respiratory: No wheezing appreciated. Rhonchi are no longer appreciated GI: Positive bowel sounds in all 4 quadrants, nontender. No organomegaly. Musculoskeletal: Normal range of motion in all limbs Extremities: No edema Skin: No bruising or rashes Neuro: No focal deficits, AAO x3 Psych: Mood is appropriate, able to make her own decisions Objective Labs Result Diagrams: 08/10/18 05:21 08/10/18 05:01 Labs: Laboratory Results - last 24 hr 08/10/18 08/10/18 08/10/18 05:01 05:01 05:21 WBC 17.1 H D RBC 4.08 Hgb 12.5 Hct 37.7 MCV 92.4 MCH 30.6 MCHC 33.1 RDW 14.1 Plt Count 231 Neut % (Auto) 77.5 H Lymph % (Auto) 14.9 L [place] % (Auto) 7.5 Eos % (Auto) 0.0 L Baso % (Auto) 0.1 Neut # (Auto) 77636 H Lymph # (Auto) 2600 [place] # (Auto) 1300 H Eos # (Auto) 0 Baso # (Auto) 0 Sodium 134 L Potassium 4.3 Chloride 97 L Carbon Dioxide 29 BUN 22 H Creatinine 1.00 Estimated GFR 53.1 L BUN/Creatinine Ratio 22.0 Glucose 118 H Hemoglobin A1c Calcium 9.0 Procalcitonin 0.06 08/10/18 05:21 WBC RBC Hgb Hct MCV MCH MCHC RDW Plt Count Neut % (Auto) Lymph % (Auto) [place] % (Auto) Eos % (Auto) Baso % (Auto) Neut # (Auto) Lymph # (Auto) [place] # (Auto) Eos # (Auto) Baso # (Auto) Sodium Potassium Chloride Carbon Dioxide BUN Creatinine Estimated GFR BUN/Creatinine Ratio Glucose Hemoglobin A1c 6.0 Calcium Procalcitonin Discharge Plan Discharge Plan Patient Disposition: Home Discharge Med Rec/Prescriptions Prescriptions: New amoxicillin-pot clavulanate [Augmentin] 875-125 mg tablet 1 tab PO BID 4 Days Qty: 8 RF: 0 Continued levothyroxine [Synthroid] 200 MCG tablet 200 mcg PO DAILY Qty: 0 RF: 0 losartan 100 MG tablet 100 mg PO DAILY Qty: 0 RF: 0 metoprolol succinate [Toprol XL] 100 MG tablet extended release 24 hr 100 mg PO DAILY Qty: 0 RF: 0 amlodipine 10 MG tablet 10 mg PO DAILY Qty: 90 RF: 3 spironolactone [Aldactone] 25 MG tablet 25 mg PO DAILY Qty: 0 RF: 0 atorvastatin 40 mg tablet 40 mg PO DAILY RF: 0 clopidogrel 75 mg tablet 75 mg PO DAILY RF: 0 pramipexole 0.5 mg tablet 0.5 mg PO BEDTIME RF: 0 pantoprazole 40 mg tablet,delayed release (DR/EC) 40 mg PO BID RF: 0 mirtazapine 30 mg tablet 30 mg PO BEDTIME RF: 0 promethazine-codeine 6.25-10 mg/5 mL syrup 5 ml PO Q4H PRN (Reason: cough) Qty: 118 RF: 0 albuterol sulfate 90 mcg/actuation HFA aerosol inhaler 2 inhalation INHALATION Q4H PRN (Reason: shortness of breath or wheezing) Qty: 8.5 RF: 0 Follow up/Referrals: Philly Merrill MD [Primary Care Provider] - Provider Discharge Instructions Diet: Low-sodium and Low-cholesterol Visit Report/Discharge Packet Visit Report Forms: Stroke Signs & Symptoms Discharge Data Primary Care Provider: Philly Merrill Attending Provider: Anne Noriega Admit Date/Time: 08/08/18 10:38
--- NOTE | 2018-08-10 14:16 | CM.DPC ---
Addendum entered by Adriana Maier LPN 08/10/18 14:25: Discussed case this morning in Team Rounds. Dr. Noriega noted pt was doing very well and would likely d/c home today. Went to room now to check in...Note that room is clear and RN reports that pt did d/c to home as per plan with no concerns re this d/c noted by the care team members. Original Note: Discharge Planning/Care Management DCP: assessment: case received yesterday and EMR was reviewed. Discussed in Team Rounds. Went by room, noted pt sitting up in bed looking comfortable and on droplet precautions for Influenza A. Pt is an 83 year old female who admitted to care of hospitalist team. Payer: Medicare and [employer]. PCP: Dr. Alena Noriega noted in rounds that full dx and POC were pending and that pt might be ok for d/c in the morning. P: see pt or family as more is known re the plan. CM Discharge Assessment Start: 08/10/18 14:14 Freq: Status: Discharge Protocol: Document 08/10/18 14:15 ITV (Rec: 08/10/18 14:16 ITV [id number]) Discharge Planning Assessment Advance Directives? Yes History Provided By Medical Record Prior Living Arrangements House Household Members family children Independent with ADL's Yes Is patient alert and oriented? Yes Review Status In Process Next Review Type Continued Stay Review
== END 2018-08-10 11:07 | disposition home or self-care (01) | DRG 194 ==
LOC: ED 10:34 → AC 10:39
PROVIDERS: Nurse Practitioner Adult Health; Admitting Provider Internal Medicine; Emergency Provider Emergency Medicine; PCP Internal Medicine; Visit Provider Internal Medicine
DX: J15.9 Unspecified bacterial pneumonia (principal); E87.1 Hypo-osmolality and hyponatremia; E87.8 Other disorders of electrolyte and fluid balance, not elsewhere classified; E03.9 Hypothyroidism, unspecified; K21.9 Gastro-esophageal reflux disease without esophagitis; G25.81 Restless legs syndrome; E78.5 Hyperlipidemia, unspecified; I10 Essential (primary) hypertension; R06.02 Shortness of breath
CPT/HCPCS: 36415; 36591; 71046; 80048; 80053; 81003; 82550; 83036; 83605; 83880; 84145; 84484; 85025; 87040; 87070; 87077; 87205; 87400; 93005; 93010; 94150; 94640; 94760; 94762; 96361; 96365; 96366; 96375; 99284; 99285; J1650; J2930; J7050; J7613

== ENCOUNTER → 2018-09-17 07:20 | Outpatient (CLI) | payer MEDICARE, OTHER, SELFPAY ==
[2018-08-08 12:38] VITALS: BMI 33.9
[2018-09-17 09:23] LABS: Alanine Aminotransferase 23 IU/L (9-52); Aspartate Aminotransferase 17 IU/L (14-36); BUN Creatinine Ratio 18.9 (6-22); Blood Urea Nitrogen 17 mg/dL (7-17); Calcium 9.2 mg/dL (8.4-10.2); Carbon Dioxide 27 mmol/L (22-32); Chloride 100 mmol/L (98-107); Cholesterol 129 mg/dL (140-199); Estimated Glomerular Filt Rate 59.9 mL/min (>60); Glucose 100 mg/dL (80-110); HDL Cholesterol 51 mg/dL (40-60); HEMOLYSIS < 15 (0-50); LDL Cholesterol Calculated 57 mg/dL (<100); Potassium 4.3 mmol/L (3.4-5.1); Sodium 136 mmol/L (137-145); Triglycerides 104 mg/dL (35-150)
== END ==
PROVIDERS: PCP Internal Medicine; Visit Provider Internal Medicine
DX: I10 Essential (primary) hypertension (principal); E78.00 Pure hypercholesterolemia, unspecified
CPT/HCPCS: 36415; 80048; 80061; 84450; 84460

== ENCOUNTER 2018-10-29 07:30 | Emergency (ER) | payer MEDICARE, OTHER, SELFPAY ==
[2018-08-08 12:38] VITALS: BMI 33.9
[2018-10-29 07:40] VITALS: BP 154/62; PULSE 77; RESP 22; TEMP 36.4; O2SAT 96; BMI 35.5
--- NOTE | 2018-10-29 07:54 | ED_ITS ---
HPI - URI/Sore Throat General Chief Complaint: Upper Respiratory Symptoms Stated Complaint: COUGHING,WHEEZING,CAN'T SLEEP Time Seen by Provider: 10/29/18 07:49 Source: patient and family Mode of arrival: ambulatory Limitations: no limitations History of Present Illness HPI Narrative: This is an 83-year-old female who comes to the emergency department with complaint of cough. Patient states that she has been a little chilled recently with no fevers. She has had a lot of nasal congestion. She states she has been coughing, she will have sort of fits where she starts coughing and can't quite stop. She has tried her inhalers as well as codeine cough syrup which has not been helping. Patient states that she has been coughing a little bit of yellowish stuff starting today. Her symptoms started on , 5 days ago. Patient denies any chest pain or pressure, no tightness or wheezing. Patient denies any nausea, no vomiting no other GI or urinary symptoms. She states she has been noticing a lot of postnasal drip and if she tries to lay flat it is worse. She does have a little bit of swelling in her lower extremities but states it is not particularly worse. Patient states she has not had any other new changes, she was hospitalized in July for influenza with pneumonia. She states that she was not requiring any of these medications but had some left over from when she was discharged from the hospital so she was trying them. She does not have any history of COPD/emphysema. She denies any prior heart attacks but does take medication including Plavix, atorvastatin and blood pressure medications. Related Data Home Medications Medication Instructions Recorded Confirmed levothyroxine [Synthroid] 200 mcg PO DAILY #0 01/17/16 08/08/18 losartan 100 mg PO DAILY #0 01/17/16 08/08/18 amlodipine 10 mg PO DAILY #90 tab 01/18/16 08/08/18 metoprolol succinate [Toprol XL] 100 mg PO DAILY #0 tab 01/18/16 08/08/18 spironolactone [Aldactone] 25 mg PO DAILY #0 09/20/17 08/08/18 atorvastatin 40 mg PO DAILY 08/06/18 08/08/18 clopidogrel 75 mg PO DAILY 08/06/18 08/08/18 mirtazapine 30 mg PO BEDTIME 08/06/18 08/08/18 pantoprazole 40 mg PO BID 08/06/18 08/08/18 pramipexole 0.5 mg PO BEDTIME 08/06/18 08/08/18 Previous Rx's Medication Instructions Recorded albuterol sulfate 2 inhalation INHALATION Q4H PRN 08/06/18 #8.5 gram promethazine-codeine 5 ml PO Q4H PRN #118 ml 08/06/18 Allergies Allergy/AdvReac Type Severity Reaction Status Date / Time No Known Drug Allergies Allergy Verified 10/29/18 07:43 Review of Systems Review of Systems ROS Unobtainable: All systems reviewed & are unremarkable except as noted in HPI and below Constitutional Reports chills, Denies fever(s), Denies lethargy and Denies weakness ENT Ears, Nose, Mouth, and Throat: Reports nasal congestion, Reports post nasal drip, Denies sinus pain, Reports sinus pressure, Denies throat swelling and Denies tongue swelling Cardiovascular Denies chest pain, Denies syncope, Denies edema, Denies dyspnea and Denies dyspnea on exertion Respiratory Denies change in phlegm color, Denies chest congestion, Reports cough, Denies hemoptysis, Reports excessive phlegm production (coming from nasal), Denies pain on inspiration, Denies pain with cough, Denies dyspnea, Denies dyspnea on exe rtion, Denies stridor and Denies wheezing Gastrointestinal Gastrointestinal: Denies abdominal pain, Denies change in bowel habits, Denies diarrhea, Denies nausea and Denies vomiting Genitourinary Denies hematuria, Denies dysuria and Denies urinary urgency Neurologic Denies syncope and Denies weakness Allergic/Immunologic Denies throat swelling, Denies tongue swelling and Denies wheezing [facility] Medical History TIA (transient ischemic attack) (Resolved) Community acquired pneumonia (Acute) Diverticulosis (Chronic) GERD (gastroesophageal reflux disease) (Chronic) HTN (hypertension) (Chronic) Hypothyroidism (Chronic) Restless leg syndrome (Chronic) Surgical History H/O thyroidectomy (Chronic) History of total left knee replacement (Chronic) S/P cholecystectomy (Chronic) Social History household members: family and children Smoking Status: Current some day smoker Social History household members: family and children Smoking Status: Current some day smoker Exam Narrative Exam Narrative: GEN: well nourished, well appearing elderly female, alert and oriented x 3, patient appears to be in no acute distress. HEENT: Atraumatic, pupils are equal round reactive to light, extraocular movements are intact, nares show bilateral clear rhinorrhea, TMs are clear with no fluid. Throat is clear without any exudates, erythema, tonsillar enlargement or uvular deviation. The patient does have a little bit of cobblestoning and postnasal drainage. HEART: Regular rate and rhythm without murmur, clicks, rubs. LUNGS:Lungs clear to auscultation, no wheezes, rales, crackles, chest moves symmetrically, no tachypnea, no accessory muscle use. ABD:bowel sounds normal, soft, non-tender, no guarding, rebound, rigidity, no masses noted, no hepatosplenomegaly MSCL: Nontender bilateral lower extremities. No edema on palpation. Patient does have sock lines/trace edema. NEURO:CN 2-12 intact, sensation normal. Initial Vital Signs Initial Vital Signs: Vital Signs Temperature 97.6 F 10/29/18 07:40 Pulse Rate 77 10/29/18 07:40 Respiratory Rate 22 10/29/18 07:40 Blood Pressure 154/62 H 10/29/18 07:40 Pulse Oximetry 96 10/29/18 07:40 Course Vital Signs - 8 hr 10/29/18 07:40 Temperature 97.6 F Pulse Rate 77 Respiratory Rate 22 Blood Pressure 154/62 H Pulse Oximetry 96 MDM - URI/Sore Throat MDM Narrative Medical decision making narrative: I discussed with patient she seems to have pretty significant nasal drainage and symptoms seem to be more related to a viral upper respiratory infection. I did offer further workup with chest x-ray and lab work but patient is comfortable treating symptomatically. We did discuss that if she has worsening to return as we did not explore other possibilities deeper although my suspicion is that this is more upper respiratory with a lot of upper respiratory congestion causing her symptoms. Discharge Plan Departure Patient Disposition: Home Clinical Impression: URI (upper respiratory infection) Discharge Date/Time: 10/29/18 08:49 Interventions: ED Discharge Assessment Last Done: 10/29/18 08:49 Instructions: DI for Viral Upper Respiratory Infection -- Adult Activity Restrictions/Additional Instructions: Follow-up with your physician this week if you are not having improvement in her symptoms. You may take Benadryl 1-2 tablets every 6-8 hours as needed for nasal congestion, if this medication is too sedating you may take a Claritin 10 mg or Zyrtec [id number] once daily. You may take Coricidin, you may take 1 tablet every 6 hours as needed for symptoms. Return to the emergency department for fevers greater than 100.4, worsening symptoms, new shortness of breath, new chest pain or pressure, if you are having new swelling in her lower extremities, passing out, lightheadedness, persistent vomiting or other new or concerning symptoms. Prescriptions: No Action levothyroxine [Synthroid] 200 MCG tablet 200 mcg PO DAILY Qty: 0 RF: 0 losartan 100 MG tablet 100 mg PO DAILY Qty: 0 RF: 0 metoprolol succinate [Toprol XL] 100 MG tablet extended release 24 hr 100 mg PO DAILY Qty: 0 RF: 0 amlodipine 10 MG tablet 10 mg PO DAILY Qty: 90 RF: 3 spironolactone [Aldactone] 25 MG tablet 25 mg PO DAILY Qty: 0 RF: 0 atorvastatin 40 mg tablet 40 mg PO DAILY RF: 0 clopidogrel 75 mg tablet 75 mg PO DAILY RF: 0 pramipexole 0.5 mg tablet 0.5 mg PO BEDTIME RF: 0 pantoprazole 40 mg tablet,delayed release (DR/EC) 40 mg PO BID RF: 0 mirtazapine 30 mg tablet 30 mg PO BEDTIME RF: 0 promethazine-codeine 6.25-10 mg/5 mL syrup 5 ml PO Q4H PRN (Reason: cough) Qty: 118 RF: 0 albuterol sulfate 90 mcg/actuation HFA aerosol inhaler 2 inhalation INHALATION Q4H PRN (Reason: shortness of breath or wheezing) Qty: 8.5 RF: 0 Referrals: Philly Merrill MD [Primary Care Provider] -
[2018-10-29 08:48] VITALS: BP 149/63; PULSE 79; RESP 18; O2SAT 96
== END 2018-10-29 08:49 | disposition home or self-care (01) ==
PROVIDERS: Emergency Provider Emergency Medicine; PCP Internal Medicine
DX: J06.9 Acute upper respiratory infection, unspecified (principal)
CPT/HCPCS: 99282

== ENCOUNTER → 2019-01-22 08:03 | Outpatient (CLI) | payer MEDICARE, OTHER, SELFPAY ==
[2018-08-08 12:38] VITALS: BMI 33.9
[2019-01-22 09:39] LABS: BUN Creatinine Ratio 13.3 (6-22); Blood Urea Nitrogen 12 mg/dL (7-17); Calcium 9.4 mg/dL (8.4-10.2); Carbon Dioxide 30 mmol/L (22-32); Chloride 96 mmol/L (98-107); Estimated Glomerular Filt Rate 59.9 mL/min (>60); Glucose 97 mg/dL (80-110); HEMOLYSIS < 15 (0-50); Potassium 4.5 mmol/L (3.4-5.1); Sodium 137 mmol/L (137-145)
== END ==
PROVIDERS: Family Provider Internal Medicine; PCP Internal Medicine; Visit Provider Internal Medicine Cardiovascular Disease
DX: I10 Essential (primary) hypertension (principal)
CPT/HCPCS: 36415; 80048

== ENCOUNTER → 2019-02-06 08:00 | Outpatient (CLI) | payer MEDICARE, OTHER, SELFPAY ==
[2018-08-08 12:38] VITALS: BMI 33.9
[2019-02-06 09:12] LABS: B Type Natriuretic Peptide 173 (<100)
[2019-02-06 09:39] LABS: Thyroid Stimulating Hormone 1.13 uIU/mL (0.47-4.68)
== END ==
PROVIDERS: Family Provider Internal Medicine; PCP Internal Medicine; Visit Provider Nurse Practitioner
DX: R06.02 Shortness of breath (principal); M79.89 Other specified soft tissue disorders; E03.9 Hypothyroidism, unspecified
CPT/HCPCS: 36415; 83880; 84443

== ENCOUNTER → 2019-02-22 09:21 | Outpatient (CLI) | payer MEDICARE, OTHER, SELFPAY ==
[2018-08-08 12:38] VITALS: BMI 33.9
--- NOTE | 2019-02-22 10:17 | PM.TREADMILL ---
Cardiac Stress Test Report Referral & Results Date Patient Seen: 02/22/19 Requesting provider: Xander Haro Indication: Dyspnea with exertion Rest ECG: Unremarkable Procedure Note: After both written and verbal informed consent the patient had an IV started by the diagnostic imaging RN, and then was hooked up to the treadmill monitoring system. The Lexiscan material, and then the Cardiolite tracer, were administered sequentially. An additional 3 min was spent monitoring the patient while supine on the gurney. The patient had a normal response to all infused materials. Impression: Normal response as above Please see perfusion imaging report for details regarding possible ischemia Please note: Actual ECG tracings can be found in the PACS system.
--- NOTE | 2019-02-25 18:00 | DI.NM.S_ITS ---
DATE OF SERVICE: 02/22/2019 PROCEDURE PERFORMED: Pharmacologic stress and rest myocardial perfusion imaging with gating to assess ejection fraction and regional wall motion. ORDERING PROVIDER: ARY Pierson. INDICATIONS: The patient is an 83-year-old female with worsening exertional dyspnea and a mildly abnormal previous stress test.. CARDIAC STRESS: Per protocol, 0.4 mg of regadenoson was infused with a normal hemodynamic response. No symptoms were reported. Her resting ECG shows sinus rhythm a with normal ST segments and there are no ST-segment shifts or arrhythmias with stress. Per protocol, 20.1 mCi of technetium-99 Myoview was injected and then the patient was imaged 15 minutes later using a gated SPECT acquisition protocol. The patient returned 3 days later and was reinjected with an additional 25.7 mCi of technetium-99 Myoview and was imaged 30 minutes later, again using a gated SPECT acquisition protocol. FINDINGS: 1. Raw Data: There is fair myocardial tracer uptake with mild breast attenuation noted. The lung/heart ratio is normal at 0.37 with a normal TID ratio of 0.93. 2. Quantitative Gated SPECT: Post stress ejection fraction is estimated to be 91%, likely an overestimate because of relatively small left ventricular volumes. There were no focal wall motion abnormalities. Resting ejection fraction is 92%, again likely an overestimate, with a resting end-diastolic volume of 64 mL. 3. Myocardial Perfusion Imaging: Post stress supine images show a fairly normal myocardial perfusion pattern with only a very subtle defect in the mid-to- distal anterior wall that likely reflects breast attenuation artifact, although no prone imaging was available as the patient could not lie prone. There are no other perfusion defects; specifically, the inferolateral wall has normal perfusion. The resting images show a similar perfusion pattern with minimal improvement in the distal anterior wall defect. CONCLUSION: 1. Probable normal myocardial perfusion study. 2. Subtle, predominantly fixed distal anterior wall defect in a location most consistent with breast attenuation artifact. There is no compelling evidence for significant myocardial ischemia. 3. High-normal left ventricular systolic function with relatively small left ventricular volumes. 4. No angina or ECG evidence of ischemia with pharmacologic vasodilator stress. 5. Compared to the previous perfusion imaging study of 09/15/2017, the anterior defect appears less prominent on today's study compared to the previous and it shifted somewhat medially on the prone image on the previous study, consistent with a probable breast attenuation artifact. Otherwise, there has been no significant change from the previous exam. Shannan Agarwal - JOSE MIGUEL/maci/ doc#: [id number]/job#: [id number] dd: 02/25/2019 16:27:00 dt: 02/25/2019 17:40:00 DICTATING MD/COPIES TO: Henrry Manning MD; Jorge Short MD; Xander Haro M.D.; Philly Merrill MD COPIES MNE: NERISSA VANEGAS; BLANCA; LEIA
== END ==
PROVIDERS: Family Provider Internal Medicine; PCP Internal Medicine; Visit Provider Nurse Practitioner
DX: R06.2 Wheezing (principal); R06.09 Other forms of dyspnea; R94.39 Abnormal result of other cardiovascular function study
CPT/HCPCS: 78452; 93016; 93017; 93018; A9502; J2785

== ENCOUNTER → 2019-02-25 12:39 | Outpatient (CLI) | payer MEDICARE, OTHER, SELFPAY ==
[2018-08-08 12:38] VITALS: BMI 33.9
--- NOTE | 2019-02-25 | DI.ECHO.S_ITS ---
[facility] +---------+ : : [address] [place] : : : : [id number] : : : : Phone: [phone]+ Echocardiogram Report + + :Name: CARMELO TOVAR Study Date: 02/25/2019 Height: 66.5 in: :[facility] Weight: 225 lb : : Gender: Female BSA: 2.1 m2 : :: 1935 Age: 83 yrs BP: 148/68 mmHg: :Reason For Study: WHEEZING : :Ordering Physician: Xander : :Tahir Performed By: Peggy Mcdonald : :Referring: XANDER BOSTON N : + + Interpretation Summary The left ventricular cavity is small. The left ventricle is hyperdynamic. Left ventricular ejection fraction is estimated to be 75 +/- 5%. There is no echo evidence for significant left ventricular outflow tract obstruction. Diastolic parameters suggest a pseudonormalization pattern, consistent with probable elevated filling pressures. In comparison to previous study, LV function is more hyperdynamic. Left ventricular cavity is small. Diastolic dysfunction unchanged. There is moderate mitral regurgitation. Compared to the prior echo study, there has been no change in the severity of mitral regurgitation. There is mild tricuspid regurgitation. Compared to the prior echo exam, there has been a decrease in TR severity. The right ventricular systolic pressure is estimated to be at least 39 mmHg based on an estimated right atrial pressure of 3 mm Hg. Compared to the prior echo exam, there has been a decrease in the severity of pulmonary hypertension. Procedure: A two-dimensional transthoracic echocardiogram with color flow and Doppler was performed. The study quality was technically adequate. Comparison is made with the echocardiogram of 05/10/17. The patient was in normal sinus rhythm during the exam. Left Ventricle: There is mild concentric left ventricular hypertrophy. The left ventricular cavity is small. Proximal septal thickening is noted. There is no echo evidence for significant left ventricular outflow tract obstruction. There is no thrombus. The left ventricle is hyperdynamic. Left ventricular ejection fraction is estimated to be 75 +/- 5%. There are no focal wall motion abnormalities. Diastolic parameters suggest a pseudonormalization pattern, consistent with probable elevated filling pressures. Right Ventricle: The right ventricle is normal in size and function. The right ventricle appears to be hypertrophied. Atria: The left atrium is mildly dilated. Right atrial size is normal. There is no Doppler evidence for an interatrial shunt. The interatrial septum bows toward right atrium consistent with elevated left atrial pressure. Mitral Valve: The mitral valve leaflets appear mildly thickened, but open well. There is moderate mitral annular calcification. The mitral valve leaflets are slightly calcified. No significant mitral valve stenosis. There is moderate mitral regurgitation. Compared to the prior echo study, there has been no change in the severity of mitral regurgitation. Aortic Valve: There is mild aortic valve sclerosis. The aortic valve is trileaflet. The aortic valve opens well. There is no aortic valve stenosis. No aortic regurgitation is present. Tricuspid Valve: The tricuspid valve is normal. There is mild tricuspid regurgitation. The right ventricular systolic pressure is estimated to be at least 39 mmHg based on an estimated right atrial pressure of 3 mm Hg. Compared to the prior echo exam, there has been a decrease in TR severity. Compared to the prior echo exam, there has been a decrease in the severity of pulmonary hypertension. Pulmonic Valve: The pulmonic valve is not well seen, but is grossly normal. There is trace pulmonic regurgitation. Great Vessels: The aortic root is normal size. The ascending aorta is normal in size. The aortic arch is normal in size. The pulmonary is not well visualized. The IVC is of normal diameter and collapses greater than 50% with a sniff. This suggests a low right atrial pressure of 3 mm Hg. Pericardium/ Pleura There is no pericardial effusion. There is no pleural effusion. MMode/2D Measurements & Calculations LVIDd: 3.8 cm LVOT diam: 2.0 cm LVIDs: 2.6 cm Ao root diam: 3.2 cm FS: 30.4 % asc Aorta Diam: 2.9 cm IVSd: 1.1 cm Ao Arch Diam (Prox Trans): 2.3 cm LVPWd: 1.3 cm LV hussein. diameter/BSA (cm/m^2): 1.8 LV sys. diameter/BSA (cm/m^2): 1.2 LA A2 area: 23.8 cm2 RA long axis: 5.7 cm LA A4 area: 30.0 cm2 RA area: 19.9 cm2 LA length (vol): 7.1 cm RA vol: 58.9 ml LA vol: 85.4 ml RA : 27.9 ml/m2 LA vol index: 40.4 ml/m2 IVC diam: 1.9 cm RVD1 (basal): 3.8 cm RVD2 (mid): 2.7 cm TAPSE: 2.2 cm Doppler Measurements & Calculations Ao V2 max: 141.6 cm/sec LVOT Max Glynn: 103.1 cm/sec Ao V2 mean: 95.6 cm/sec LV V1 max P.3 mmHg Ao max P.0 mmHg LV V1 VTI: 22.5 cm Ao mean P.1 mmHg BANDAR(I,D): 2.2 cm2 Ao V2 VTI: 31.3 cm BANDAR(V,D): 2.3 cm2 sev ratio: 0.72 BANDAR indexed to BSA (cm^2/m^2): 1.1 MV E max glynn: 109.3 cm/sec TR max glynn: 299.9 cm/sec MV A max glynn: 99.5 cm/sec TR max P.0 mmHg MV E/A: 1.1 PA V2 max: 64.0 cm/sec Med Peak E' Glynn: 2.5 cm/sec PA V2 mean: 44.3 cm/sec E/E' med: 43.3 PA mean P.88 mmHg Lat Peak E' Glynn: 4.1 cm/sec PA Accel Time: 0.09 sec E/E' lat: 26.6 E/e' average: 35.0 MV dec time: 0.20 sec MVA(VTI): 1.8 cm2 MV V2 mean: 73.2 cm/sec SV(LVOT): 70.1 ml MV mean P.5 mmHg MV V2 VTI: 38.2 cm Reading Physician:06:00 PM
== END ==
PROVIDERS: PCP Internal Medicine; Visit Provider Nurse Practitioner
DX: I08.1 Rheumatic disorders of both mitral and tricuspid valves (principal); R06.2 Wheezing
CPT/HCPCS: 93306

== ENCOUNTER → 2019-04-12 07:57 | Outpatient (CLI) | payer MEDICARE, OTHER, SELFPAY ==
[2018-08-08 12:38] VITALS: BMI 33.9
[2019-04-12 09:05] LABS: Alanine Aminotransferase 16 IU/L (<35); Aspartate Aminotransferase 21 IU/L (14-36); Blood Urea Nitrogen 15 mg/dL (7-17); Calcium 9.5 mg/dL (8.4-10.2); Carbon Dioxide 30 mmol/L (22-32); Chloride 98 mmol/L (98-107); Cholesterol 136 mg/dL (140-199); Estimated Glomerular Filt Rate 53.1 mL/min (>60); Glucose 104 mg/dL (80-110); HDL Cholesterol 51 mg/dL (40-60); HEMOLYSIS < 15 (0-50); LDL Cholesterol Calculated 66 mg/dL (<100); Potassium 4.6 mmol/L (3.4-5.1); Sodium 135 mmol/L (137-145); Triglycerides 96 mg/dL (35-150)
[2019-04-12 10:01] LABS: TSH w/ Reflex to FT4 1.39 uIU/mL (0.47-4.68)
== END ==
PROVIDERS: PCP Internal Medicine; Visit Provider Internal Medicine
DX: I10 Essential (primary) hypertension (principal); E78.00 Pure hypercholesterolemia, unspecified; E03.9 Hypothyroidism, unspecified
CPT/HCPCS: 36415; 80048; 80061; 84443; 84450; 84460

== ENCOUNTER → 2020-01-24 07:31 | Outpatient (CLI) | payer MEDICARE, OTHER, SELFPAY ==
[2018-08-08 12:38] VITALS: BMI 33.9
--- NOTE | 2020-01-24 | DI.US.S_ITS ---
PROCEDURE: US CAROTID DOPPLER BI INDICATIONS: TIA TECHNIQUE: Color and pulse Doppler interrogation was performed of both carotid systems, with image documentation and velocity measurements. COMPARISON: None. FINDINGS: Stenosis calculations are based on SRU (Society of Radiologists in Ultrasound) criteria. The flow velocities and the arterial waveforms are normal within both carotid arterial systems. Atherosclerotic plaque is seen on both sides. The estimated degree of internal carotid artery stenosis is less than 50%. Antegrade flow is confirmed within both vertebral arteries. IMPRESSION: No hemodynamically significant stenosis is seen. Atherosclerotic plaque is noted bilaterally. Dictated by: Enzo Sloan M.D. on 01/24/2020 at 10:15 Approved by: Enzo Sloan M.D. on 01/24/2020 at 10:17
[2020-01-24 10:06] LABS: Alanine Aminotransferase 17 IU/L (<35); Albumin 4.4 g/dL (3.5-5.0); Albumin Globulin Ratio 1.6 (1.0-2.8); Alkaline Phosphatase 78 U/L (38-126); Aspartate Aminotransferase 21 IU/L (14-36); BUN Creatinine Ratio 15.8 (6-22); Bilirubin Total 0.7 mg/dL (0.2-1.3); Blood Urea Nitrogen 15 mg/dL (7-17); Calcium 9.5 mg/dL (8.4-10.2); Carbon Dioxide 28 mmol/L (22-32); Chloride 98 mmol/L (98-107); Cholesterol 137 mg/dL (140-199); Estimated Glomerular Filt Rate 56.2 mL/min (>60); Globulin 2.7 g/dL (1.7-4.1); Glucose 98 mg/dL (80-110); HDL Cholesterol 63 mg/dL (40-60); HEMOLYSIS < 15 (0-50); LDL Cholesterol Calculated 58 mg/dL (<100); Potassium 4.8 mmol/L (3.4-5.1); Sodium 134 mmol/L (137-145); Total Protein 7.1 g/dL (6.3-8.2); Triglycerides 79 mg/dL (35-150)
[2020-01-24 10:37] LABS: TSH w/ Reflex to FT4 1.49 uIU/mL (0.47-4.68)
== END ==
PROVIDERS: PCP Internal Medicine; Referring Provider Internal Medicine; Visit Provider Internal Medicine
DX: G45.9 Transient cerebral ischemic attack, unspecified (principal); I10 Essential (primary) hypertension; E03.9 Hypothyroidism, unspecified; E78.00 Pure hypercholesterolemia, unspecified
CPT/HCPCS: 36415; 80053; 80061; 84443; 93880

== ENCOUNTER → 2020-10-08 16:15 | Outpatient (CLI) | payer MEDICARE, OTHER, SELFPAY ==
[2018-08-08 12:38] VITALS: BMI 33.9
[2020-10-08] MEDS: COVID-19 VACC #1, MRNA(MOD) 100 MCG/0.5 ML VIAL IM (16:24)
== END ==
PROVIDERS: Family Provider Internal Medicine; PCP Internal Medicine; Visit Provider Internal Medicine
DX: Z23 Encounter for immunization (principal)
CPT/HCPCS: 0011A; 91301

== ENCOUNTER 2020-10-21 09:45 | Outpatient (RCR) | payer MEDICARE, OTHER, SELFPAY ==
[2018-08-08 12:38] VITALS: BMI 33.9
--- NOTE | 2020-08-24 16:31 | PT.OIE ---
Current Diagnoses Unilateral primary osteoarthritis, right knee (08/24/20) Past Medical History (Last Reviewed 10/29/18 @ 08:17 by Juliana Jade DO) Community acquired pneumonia Diverticulosis GERD (gastroesophageal reflux disease) HTN (hypertension) Hypothyroidism Restless leg syndrome TIA (transient ischemic attack) Past Surgical History (Last Reviewed 10/29/18 @ 08:17 by Juliana Jade DO) H/O thyroidectomy History of total left knee replacement S/P cholecystectomy Visit Care Team Role Provider Type Philly Merrill MD Family Provider Physician Primary Care Provider Specialty: Internal Medicine Address: [address] [place] [address], [phone] Email: [email or web address] Julieth Mcduffie PA-C Attending Provider Non-Staff Referring Provider Specialty: Medical Address: [address] [place] [address], [phone] Email: Physical Therapy Initial Evaluation PT-OP-A Visit Information Start: 08/24/20 14:20 Freq: Status: Active Protocol: Document 08/24/20 15:24 HH (Rec: 08/24/20 16:31 HH [email or web address]) Out-Patient Physical Therapy Visit Information Visit Information Visit Type Initial Evaluation Visit Start Time 13:45 Visit Stop Time 14:20 Total Visit Minutes 40 Visit Number 06/30 Number of TREE CUTTER Visits 0 Evaluation Information Evaluation Date 08/24/20 Precautions Precautions SOB PT-OP-B Current Condition Start: 08/24/20 14:20 Freq: Status: Active Protocol: Document 08/24/20 15:24 HH (Rec: 08/24/20 16:31 HH [email or web address]) Current Condition History of Current Condition Onset Date 08/17/20 Current Complaints s/p R TKA History of Current Condition Pt is a 85yo female here with her daughter for rehab s/p R TKA on 08/17/20. Pt stated she has been progressing very well since surgrey. Pt is currently using FWW for all mobility and able to walk around the house 4-5 times a day. She has been doing ankle [place], ankle pumps, and seated quad set at home. Treatment Goals Patient/Caregiver Goals 1. To regain full ROM and strength for her R knee 2. To be able to walk without AD again 3. to be able to climb stairs without help Prior Functional Status Baseline Function- ADL's Independent Baseline Function- Mobility Independent Baseline Function- Gait without AD Baseline Function- Recreation/Hobbies able to walk at home without AD but SPC in community. Baseline Function- Other she was able to drive independent for all ADLs and IADLs Current Functional Impairments (Reported) Functional Limitations- ADL's requires dtr min to contact guard assistance Functional Limitations- Mobility/Gait FWW at all times Functional Limitations- Other Pt has been sleeping in her recliner since she has difficulty lifting her RLE to bed. PT-OP-C Subjective Start: 08/24/20 14:20 Freq: Status: Active Protocol: Document 08/24/20 15:24 HH (Rec: 08/24/20 16:31 HH [email or web address]) OP-PT Pain Assessment Location r knee Intensity 4 Scale Used Numeric (0 - 10) Description Aching Frequency Frequent Pain Aggravating Factors Activity,Exercise,Walking, Stair Climbing,Lifting Pain Alleviating Factors Inactivity PT-OP-G Mobility & Gait Start: 08/24/20 14:20 Freq: Status: Active Protocol: Document 08/24/20 15:24 HH (Rec: 08/24/20 16:31 HH [email or web address]) OP Mobility Evaluation Bed Mobility Supine to and from Sit supine to sit requires min A to pivot her R LE and vice; same for sit to supine Transfers Sit to Stand with stagger stance and FWW OP Gait Assessment Gait Gait Assistance Required: Standby Assistance Able to Maintain Weight Bearing Status Yes During Gait Assistive Devices Assistive Device Gait Belt,Front Wheeled Walker Gait Deviations General Gait Pattern Antalgic,Decreased Stride Length,Decreased Feet Clearance,Flexed Trunk,Lateral Trunk Lean Comments Gait Comments increased WB on LLE and lack of R knee extension on RLE PT-OP-J Posture/Palpation/Skin Start: 08/24/20 14:20 Freq: Status: Active Protocol: Document 08/24/20 15:24 HH (Rec: 08/24/20 16:31 HH [email or web address]) Palpation Assessment Location R knee Palpation Findings Soft Tissue Tightness, Tenderness Palpation Details no significant edema noted at R knee but mild swelling noted . pt is wearing compressiong sock up to R mid thigh PT-OP-K Range of Motion Start: 08/24/20 14:20 Freq: Status: Active Protocol: Document 08/24/20 15:24 HH (Rec: 08/24/20 16:31 [email or web address]) Knee Goniometric Range of Motion Knee Right Knee ROM WFL No Patient Position Supine Flexion Active (degrees) 70 Flexion Passive (degrees) 75 Extension Active (degrees) 10 Comments pain at end range Left Knee ROM WFL Yes Patient Position Supine Flexion Active (degrees) 110 Extension Active (degrees) 4 Knee ROM Limitations Knee ROM Limitations Soft Tissue Tightness,Muscle Weakness,Pain,Swelling PT-OP-Q Treatments Start: 08/24/20 14:20 Freq: Status: Active Protocol: Document 08/24/20 15:24 HH (Rec: 08/24/20 16:31 [email or web address]) Therapeutic Exercises Supine Exercises heel slide Supine Exercise Name r knee Side right Reps/Minutes 4 x 2 Comments cues on heel slide, for HEP quad set Supine Exercise Name R knee Side right Equipment Used pillow underneath R knee Reps/Minutes 5 x2 Comments cues on quad engagement, for HEP Sitting Exercises seated knee flexion Sitting Exercise Name R knee Side right Equipment Used with skateboard Reps/Minutes 5 x2 Comments for hEP PT-OP-T Assessment and Plan Start: 08/24/20 14:20 Freq: Status: Active Protocol: Document 08/24/20 15:24 HH (Rec: 08/24/20 16:31 [email or web address]) Physical Therapy Assessment Rehab Potential Rehabilitation Potential Excellent Evaluation Complexity Number of Personal Factors/Comorbidities 1-2 Number of Body Systems Impaired 1-2 Clinical Presentation at Evaluation Stable Impairments Impairments Activity Tolerance,Balance, Functional Activities, Functional Mobility,Gait,Pain, Posture,ROM,Soft Tissue Mobility,Strength Goals LEFS Impairment scores STS Impairment pt perform STS with stagger stance and pushes off through armrests Short Term Goal (STG) pt will be able to stand up with even steps x5 times. STG Duration 4 weeks Fdc Goal (LTG) pt will be able to stand up from a regular chair x5 times without using armrests safely and independently LTG Duration 8 weeks gait Impairment pt is using FWW for all mobility Short Term Goal (STG) pt will progress to use SPC for all mobility safely and independently STG Duration 4 weeks Strawhat Sizer Goal (LTG) pt will progress to amb without AD for all mobility safely and independently LTG Duration 8 weeks ROM Impairment lack of Rknee ROM Short Term Goal (STG) pt will show increase in R knee AROM by >15degrees to improve her overall mobility STG Duration 4 weeks Fdc Goal (LTG) pt will show increase in R knee AROM by >30 degrees to improve her overall mobility and gait mechanics LTG Duration 8 weeks Assessment Summary Assessment Pt is a 85yo female here with her daughter for rehab s/p R TKA on 08/17/20. Upon assessment , pt is doing and moving well with FWW for all mobility. She does have limited extension ( 10 degrees) and flexion (70 degrees) and she has not done any knee extension/ flexion exercises since surgery. Provided HEP today and pt and her daughter both show good understanding of it and plan of care. Pt will benefit from skilled therapy to improve her knee mobility, strength and gait mechanics in order for her to return to her PLOF. Physical Therapy Plan Frequency and Duration Frequency of Treatment 2x/Week Duration of Treatment 8 weeks Plan of Care Start Date 08/24/20 Plan of Care End Date 10/23/20 Therapeutic Interventions Therapeutic Interventions Balance Training,Gait Training ,Home Exercise Program,Joint Mobilizations,Manual Therapy, Neuromuscular Re-education, Patient/Caregiver Education, Self-Care/Home Management, Sensory Integration,Soft Tissue Mobilization,Taping, Therapeutic Activities, Therapeutic Exercises Modalities Cold Pack/Ice Massage,Electric Stimulation,Hot Packs Next Visit Focus/Plan Next Note Type Treatment Note Next Visit Plan check 5STS/ 30 seconds STS LEFS check HEP, flexion and extension exercises. stepper at the end.
--- NOTE | 2020-08-24 16:31 | PT.OPPOC ---
Physical, Occupational & Speech Therapy At [facility] Current Diagnoses Unilateral primary osteoarthritis, right knee (08/24/20) Visit Care Team Role Provider Type Philly Merrill MD Family Provider Physician Primary Care Provider Specialty: Internal Medicine Address: [address] [place] [address], [phone] Email: [email or web address] Julieth Mcduffie PA-C Attending Provider Non-Staff Referring Provider Specialty: Medical Address: [address] [place] [address], [phone] Email: Plan Of Care PT-OP-T Assessment and Plan Start: 08/24/20 14:20 Freq: Status: Active Protocol: Document 08/24/20 15:24 HH (Rec: 08/24/20 16:31 HH [email or web address]) Physical Therapy Assessment Rehab Potential Rehabilitation Potential Excellent Evaluation Complexity Number of Personal Factors/Comorbidities 1-2 Number of Body Systems Impaired 1-2 Clinical Presentation at Evaluation Stable Impairments Impairments Activity Tolerance,Balance, Functional Activities, Functional Mobility,Gait,Pain, Posture,ROM,Soft Tissue Mobility,Strength Goals LEFS Impairment scores STS Impairment pt perform STS with stagger stance and pushes off through armrests Short Term Goal (STG) pt will be able to stand up with even steps x5 times. STG Duration 4 weeks Snf Goal (LTG) pt will be able to stand up from a regular chair x5 times without using armrests safely and independently LTG Duration 8 weeks gait Impairment pt is using FWW for all mobility Short Term Goal (STG) pt will progress to use SPC for all mobility safely and independently STG Duration 4 weeks Softball Winder Goal (LTG) pt will progress to amb without AD for all mobility safely and independently LTG Duration 8 weeks ROM Impairment lack of Rknee ROM Short Term Goal (STG) pt will show increase in R knee AROM by >15degrees to improve her overall mobility STG Duration 4 weeks Softball Winder Goal (LTG) pt will show increase in R knee AROM by >30 degrees to improve her overall mobility and gait mechanics LTG Duration 8 weeks Assessment Summary Assessment Pt is a 85yo female here with her daughter for rehab s/p R TKA on 08/17/20. Upon assessment , pt is doing and moving well with FWW for all mobility. She does have limited extension ( 10 degrees) and flexion (70 degrees) and she has not done any knee extension/ flexion exercises since surgery. Provided HEP today and pt and her daughter both show good understanding of it and plan of care. Pt will benefit from skilled therapy to improve her knee mobility, strength and gait mechanics in order for her to return to her PLOF. Physical Therapy Plan Frequency and Duration Frequency of Treatment 2x/Week Duration of Treatment 8 weeks Plan of Care Start Date 08/24/20 Plan of Care End Date 10/23/20 Therapeutic Interventions Therapeutic Interventions Balance Training,Gait Training ,Home Exercise Program,Joint Mobilizations,Manual Therapy, Neuromuscular Re-education, Patient/Caregiver Education, Self-Care/Home Management, Sensory Integration,Soft Tissue Mobilization,Taping, Therapeutic Activities, Therapeutic Exercises Modalities Cold Pack/Ice Massage,Electric Stimulation,Hot Packs Next Visit Focus/Plan Next Note Type Treatment Note Next Visit Plan check 5STS/ 30 seconds STS LEFS check HEP, flexion and extension exercises. stepper at the end. Plan of Care Dates Plan of Care Start Date 08/24/20 Plan of Care End Date 10/23/20 Electronically Signed by: Luis Renner PT 08/24/20 2091 Please Sign and Return: I have reviewed this Plan of Care and certify that the skilled therapy services above are required to meet the patient?s needs. Physician Signature Date Printed Name and Credentials Clinical Instructor Signature Printed Name and Credentials
--- NOTE | 2020-09-01 16:15 | PT.OTN ---
Current Diagnoses Unilateral primary osteoarthritis, right knee (09/01/20) Physical Therapy Treatment Note PT-OP-A Visit Information Start: 08/24/20 14:20 Freq: Status: Active Protocol: Document 09/01/20 15:14 HH (Rec: 09/01/20 16:15 [id number]) Out-Patient Physical Therapy Visit Information Visit Information Visit Type Treatment Note Visit Note dtr attended session Visit Start Time 15:15 Visit Stop Time 16:00 Total Visit Minutes 45 Visit Number 07/31 Number of CEMENTER MACHINE Visits 0 PT-OP-B Current Condition Start: 08/24/20 14:20 Freq: Status: Active Protocol: Document 08/24/20 15:24 HH (Rec: 08/24/20 16:31 [email or web address]) Current Condition History of Current Condition Onset Date 08/17/20 Current Complaints s/p R TKA History of Current Condition Pt is a 85yo female here with her daughter for rehab s/p R TKA on 08/17/20. Pt stated she has been progressing very well since surgrey. Pt is currently using FWW for all mobility and able to walk around the house 4-5 times a day. She has been doing ankle [place], ankle pumps, and seated quad set at home. Treatment Goals Patient/Caregiver Goals 1. To regain full ROM and strength for her R knee 2. To be able to walk without AD again 3. to be able to climb stairs without help Prior Functional Status Baseline Function- ADL's Independent Baseline Function- Mobility Independent Baseline Function- Gait without AD Baseline Function- Recreation/Hobbies able to walk at home without AD but SPC in community. Baseline Function- Other she was able to drive independent for all ADLs and IADLs Current Functional Impairments (Reported) Functional Limitations- ADL's requires dtr min to contact guard assistance Functional Limitations- Mobility/Gait FWW at all times Functional Limitations- Other Pt has been sleeping in her recliner since she has difficulty lifting her RLE to bed. PT-OP-C Subjective Start: 08/24/20 14:20 Freq: Status: Active Protocol: Document 09/01/20 15:14 HH (Rec: 09/01/20 16:15 [id number]) OP-PT Subjective Patient Comments Patient Comments Pt had a f/u with surgeon today. Pt's nathan are removed and surgeon is satisfied with her progress Patient Reported Progress Improving Patient Questionnaires Lower Extremity Functional Scale LEFS Score 26 LEFS Impairment 60 to 79% Impaired (Score 17- 31) PT-OP-E Functional Tests Start: 08/24/20 14:20 Freq: Status: Active Protocol: Document 09/01/20 15:14 (Rec: 09/01/20 16:15 [id number]) Functional Tests Five Times Sit to Stand Test Score 20 Comments pushed off through FWW with staggered stance PT-OP-G Mobility & Gait Start: 08/24/20 14:20 Freq: Status: Active Protocol: Document 08/24/20 15:24 HH (Rec: 08/24/20 16:31 [email or web address]) OP Mobility Evaluation Bed Mobility Supine to and from Sit supine to sit requires min A to pivot her R LE and vice; same for sit to supine Transfers Sit to Stand with stagger stance and FWW OP Gait Assessment Gait Gait Assistance Required: Standby Assistance Able to Maintain Weight Bearing Status Yes During Gait Assistive Devices Assistive Device Gait Belt,Front Wheeled Walker Gait Deviations General Gait Pattern Antalgic,Decreased Stride Length,Decreased Feet Clearance,Flexed Trunk,Lateral Trunk Lean Comments Gait Comments increased WB on LLE and lack of R knee extension on RLE PT-OP-J Posture/Palpation/Skin Start: 08/24/20 14:20 Freq: Status: Active Protocol: Document 08/24/20 15:24 HH (Rec: 08/24/20 16:31 [email or web address]) Palpation Assessment Location R knee Palpation Findings Soft Tissue Tightness, Tenderness Palpation Details no significant edema noted at R knee but mild swelling noted . pt is wearing compressiong sock up to R mid thigh PT-OP-K Range of Motion Start: 08/24/20 14:20 Freq: Status: Active Protocol: Document 08/24/20 15:24 (Rec: 08/24/20 16:31 [email or web address]) Knee Goniometric Range of Motion Knee Right Knee ROM WFL No Patient Position Supine Flexion Active (degrees) 70 Flexion Passive (degrees) 75 Extension Active (degrees) 10 Comments pain at end range Left Knee ROM WFL Yes Patient Position Supine Flexion Active (degrees) 110 Extension Active (degrees) 4 Knee ROM Limitations Knee ROM Limitations Soft Tissue Tightness,Muscle Weakness,Pain,Swelling PT-OP-Q Treatments Start: 08/24/20 14:20 Freq: Status: Active Protocol: Document 09/01/20 15:14 (Rec: 09/01/20 16:15 [id number]) Cardio Equipment Recumbent Stepper (Sci-Fit) Duration (Minutes) 6 Seat Position 14 Therapeutic Exercises Supine Exercises HS stretch Supine Exercise Name with quad set Side right Reps/Minutes 5 x2 Comments cues on quad engagement heel slide Supine Exercise Name r knee Side right Reps/Minutes 4 x 2 Comments cues on heel slide, for HEP quad set Supine Exercise Name R knee Side right Equipment Used pillow underneath R knee Reps/Minutes 5 x2 Comments cues on quad engagement, for HEP Sitting Exercises seated knee flexion Sitting Exercise Name R knee Side right Equipment Used with skateboard Reps/Minutes 10 x2 Comments up to 80 degrees flexion Manual Therapy Treatment Soft Tissue Mobilization R knee Body Location proximal calf and knee joint Mobilization Type Rolling,Sustained Pressure, Trigger Point Release Intensity/Depth Moderate Body Position Supine Comments mod swelling and tenderness at jointline PT-OP-T Assessment and Plan Start: 08/24/20 14:20 Freq: Status: Active Protocol: Document 09/01/20 15:14 (Rec: 09/01/20 16:15 [id number]) Physical Therapy Assessment Goals LEFS Impairment pt scores 26 on LEFS Short Term Goal (STG) pt will score >35 on LEFS to improve her mobility and strength STG Duration 4 weeks Tin Assorter Goal (LTG) pt will score > 45 on LEFS to improve her quality of life LTG Duration 8 weeks STS Impairment pt perform STS with stagger stance and pushes off through armrests Short Term Goal (STG) pt will be able to stand up with even steps x5 times under 16 seconds STG Duration 4 weeks Mcc Goal (LTG) pt will be able to stand up from a regular chair x5 times without using armrests safely and independently under 15 seconds LTG Duration 8 weeks gait Impairment pt is using FWW for all mobility Short Term Goal (STG) pt will progress to use SPC for all mobility safely and independently STG Duration 4 weeks Mcc Goal (LTG) pt will progress to amb without AD for all mobility safely and independently LTG Duration 8 weeks ROM Impairment lack of Rknee ROM Short Term Goal (STG) pt will show increase in R knee AROM by >15degrees to improve her overall mobility STG Duration 4 weeks Mcc Goal (LTG) pt will show increase in R knee AROM by >30 degrees to improve her overall mobility and gait mechanics LTG Duration 8 weeks Assessment Summary Assessment Pt had a f/u with surgeon today and surgeon is satisfied with her progress. Pt knee flexion up to 80 degrees and also has better quad engagement during quad set. Added HS stretch to improve her knee extension. pt nahun session well Physical Therapy Plan Frequency and Duration Frequency of Treatment 2x/Week Duration of Treatment 8 weeks Plan of Care Start Date 08/24/20 Plan of Care End Date 10/23/20 Next Visit Focus/Plan Next Note Type Treatment Note Next Visit Plan check 5STS/ 30 seconds STS LEFS check HEP, flexion and extension exercises. stepper at the end.
--- NOTE | 2020-09-03 16:00 | PT.OTN ---
Current Diagnoses Unilateral primary osteoarthritis, right knee (09/03/20) Physical Therapy Treatment Note PT-OP-A Visit Information Start: 08/24/20 14:20 Freq: Status: Active Protocol: Document 09/03/20 15:18 HH (Rec: 09/03/20 16:00 [id number]) Out-Patient Physical Therapy Visit Information Visit Information Visit Type Treatment Note Visit Note dtr attended session Visit Start Time 15:18 Visit Stop Time 16:02 Total Visit Minutes 44 Visit Number 08/28 Number of SPRING COILER HAND Visits 0 PT-OP-B Current Condition Start: 08/24/20 14:20 Freq: Status: Active Protocol: Document 08/24/20 15:24 HH (Rec: 08/24/20 16:31 HH [email or web address]) Current Condition History of Current Condition Onset Date 08/17/20 Current Complaints s/p R TKA History of Current Condition Pt is a 85yo female here with her daughter for rehab s/p R TKA on 08/17/20. Pt stated she has been progressing very well since surgrey. Pt is currently using FWW for all mobility and able to walk around the house 4-5 times a day. She has been doing ankle [place], ankle pumps, and seated quad set at home. Treatment Goals Patient/Caregiver Goals 1. To regain full ROM and strength for her R knee 2. To be able to walk without AD again 3. to be able to climb stairs without help Prior Functional Status Baseline Function- ADL's Independent Baseline Function- Mobility Independent Baseline Function- Gait without AD Baseline Function- Recreation/Hobbies able to walk at home without AD but SPC in community. Baseline Function- Other she was able to drive independent for all ADLs and IADLs Current Functional Impairments (Reported) Functional Limitations- ADL's requires dtr min to contact guard assistance Functional Limitations- Mobility/Gait FWW at all times Functional Limitations- Other Pt has been sleeping in her recliner since she has difficulty lifting her RLE to bed. PT-OP-C Subjective Start: 08/24/20 14:20 Freq: Status: Active Protocol: Document 09/01/20 15:14 HH (Rec: 09/01/20 16:15 HH [id number]) OP-PT Subjective Patient Comments Patient Comments Pt had a f/u with surgeon today. Pt's nathan are removed and surgeon is satisfied with her progress Patient Reported Progress Improving Patient Questionnaires Lower Extremity Functional Scale LEFS Score 26 LEFS Impairment 60 to 79% Impaired (Score 17- 31) PT-OP-E Functional Tests Start: 08/24/20 14:20 Freq: Status: Active Protocol: Document 09/01/20 15:14 (Rec: 09/01/20 16:15 [id number]) Functional Tests Five Times Sit to Stand Test Score 20 Comments pushed off through FWW with staggered stance PT-OP-G Mobility & Gait Start: 08/24/20 14:20 Freq: Status: Active Protocol: Document 08/24/20 15:24 HH (Rec: 08/24/20 16:31 [email or web address]) OP Mobility Evaluation Bed Mobility Supine to and from Sit supine to sit requires min A to pivot her R LE and vice; same for sit to supine Transfers Sit to Stand with stagger stance and FWW OP Gait Assessment Gait Gait Assistance Required: Standby Assistance Able to Maintain Weight Bearing Status Yes During Gait Assistive Devices Assistive Device Gait Belt,Front Wheeled Walker Gait Deviations General Gait Pattern Antalgic,Decreased Stride Length,Decreased Feet Clearance,Flexed Trunk,Lateral Trunk Lean Comments Gait Comments increased WB on LLE and lack of R knee extension on RLE PT-OP-J Posture/Palpation/Skin Start: 08/24/20 14:20 Freq: Status: Active Protocol: Document 08/24/20 15:24 HH (Rec: 08/24/20 16:31 [email or web address]) Palpation Assessment Location R knee Palpation Findings Soft Tissue Tightness, Tenderness Palpation Details no significant edema noted at R knee but mild swelling noted . pt is wearing compressiong sock up to R mid thigh PT-OP-K Range of Motion Start: 08/24/20 14:20 Freq: Status: Active Protocol: Document 08/24/20 15:24 (Rec: 08/24/20 16:31 [email or web address]) Knee Goniometric Range of Motion Knee Right Knee ROM WFL No Patient Position Supine Flexion Active (degrees) 70 Flexion Passive (degrees) 75 Extension Active (degrees) 10 Comments pain at end range Left Knee ROM WFL Yes Patient Position Supine Flexion Active (degrees) 110 Extension Active (degrees) 4 Knee ROM Limitations Knee ROM Limitations Soft Tissue Tightness,Muscle Weakness,Pain,Swelling PT-OP-Q Treatments Start: 08/24/20 14:20 Freq: Status: Active Protocol: Document 09/03/20 15:18 (Rec: 09/03/20 16:00 [id number]) Cardio Equipment Recumbent Stepper (Sci-Fit) Duration (Minutes) 6 Resistance 1.5 Seat Position 14 Therapeutic Exercises Supine Exercises SAQ Side right Equipment Used bolster Reps/Minutes 6 x 2 Comments no pain noted HS stretch Supine Exercise Name with quad set Side right Reps/Minutes 5 x2 Comments cues on quad engagement quad set Supine Exercise Name R knee Side right Equipment Used pillow underneath R knee Reps/Minutes 5 x2 Comments cues on quad engagement, for HEP Sitting Exercises seated knee flexion Sitting Exercise Name R knee Side right Equipment Used with skateboard Reps/Minutes 10 x2 Comments up to 90 degrees flexion Standing Exercises standing knee extension Standing Exercise Name with FWW Reps/Minutes 5x1 Manual Therapy Treatment Soft Tissue Mobilization R knee Body Location proximal calf and knee joint Mobilization Type Rolling,Sustained Pressure, Trigger Point Release Intensity/Depth Moderate Body Position Supine Comments mod swelling and tenderness at jointline PT-OP-T Assessment and Plan Start: 08/24/20 14:20 Freq: Status: Active Protocol: Document 09/03/20 15:18 (Rec: 09/03/20 16:00 [id number]) Physical Therapy Assessment Goals LEFS Impairment pt scores 26 on LEFS Short Term Goal (STG) pt will score >35 on LEFS to improve her mobility and strength STG Duration 4 weeks Clean Out Driller Goal (LTG) pt will score > 45 on LEFS to improve her quality of life LTG Duration 8 weeks STS Impairment pt perform STS with stagger stance and pushes off through armrests Short Term Goal (STG) pt will be able to stand up with even steps x5 times under 16 seconds STG Duration 4 weeks [facility] Goal (LTG) pt will be able to stand up from a regular chair x5 times without using armrests safely and independently under 15 seconds LTG Duration 8 weeks gait Impairment pt is using FWW for all mobility Short Term Goal (STG) pt will progress to use SPC for all mobility safely and independently STG Duration 4 weeks Clean Out Driller Goal (LTG) pt will progress to amb without AD for all mobility safely and independently LTG Duration 8 weeks ROM Impairment lack of Rknee ROM Short Term Goal (STG) pt will show increase in R knee AROM by >15degrees to improve her overall mobility STG Duration 4 weeks Clean Out Driller Goal (LTG) pt will show increase in R knee AROM by >30 degrees to improve her overall mobility and gait mechanics LTG Duration 8 weeks Assessment Summary Assessment Pt shows good progress, flexion up to 90 and extension up to 7-8 degrees. Physical Therapy Plan Frequency and Duration Frequency of Treatment 2x/Week Duration of Treatment 8 weeks Plan of Care Start Date 08/24/20 Plan of Care End Date 10/23/20 Next Visit Focus/Plan Next Note Type Treatment Note Next Visit Plan check 5STS/ 30 seconds STS LEFS check HEP, flexion and extension exercises. stepper at the end.
--- NOTE | 2020-09-08 16:08 | PT.OTN ---
Current Diagnoses Unilateral primary osteoarthritis, right knee (09/08/20) Physical Therapy Treatment Note PT-OP-A Visit Information Start: 08/24/20 14:20 Freq: Status: Active Protocol: Document 09/08/20 15:12 HH (Rec: 09/08/20 16:08 [id number]) Out-Patient Physical Therapy Visit Information Visit Information Visit Type Treatment Note Visit Note dtr attended session Visit Start Time 15:15 Visit Stop Time 16:00 Total Visit Minutes 45 Visit Number 09/28 Number of CULLET CRUSHER Visits 0 PT-OP-B Current Condition Start: 08/24/20 14:20 Freq: Status: Active Protocol: Document 08/24/20 15:24 HH (Rec: 08/24/20 16:31 [email or web address]) Current Condition History of Current Condition Onset Date 08/17/20 Current Complaints s/p R TKA History of Current Condition Pt is a 85yo female here with her daughter for rehab s/p R TKA on 08/17/20. Pt stated [facility] Pt is currently using FWW for all mobility and able to walk around the house 4-5 times a day. She has been doing [place], ankle pumps, and seated quad set at home. Treatment Goals Patient/Caregiver Goals 1. To regain full ROM and strength for her R knee 2. To be able to walk without AD again 3. to be able to climb stairs without help Prior Functional Status Baseline Function- ADL's Independent Baseline Function- Mobility Independent Baseline Function- Gait without AD Baseline Function- Recreation/Hobbies able to walk at home without AD but SPC in community. Baseline Function- Other she was able to drive independent for all ADLs and IADLs Current Functional Impairments (Reported) Functional Limitations- ADL's requires dtr min to contact guard assistance Functional Limitations- Mobility/Gait FWW at all times Functional Limitations- Other Pt has been sleeping in her recliner since she has difficulty lifting her RLE to bed. PT-OP-C Subjective Start: 08/24/20 14:20 Freq: Status: Active Protocol: Document 09/08/20 15:12 HH (Rec: 09/08/20 16:08 [id number]) OP-PT Subjective Patient Comments Patient Comments i had a sharp pain on top at my knee while i was doing LAQ on luan but it went away. But it has been bothering here and there and i dont know why . I also want to try using a cane to walk Patient Reported Progress Improving PT-OP-E Functional Tests Start: 08/24/20 14:20 Freq: Status: Active Protocol: Document 09/01/20 15:14 (Rec: 09/01/20 16:15 [id number]) Functional Tests Five Times Sit to Stand Test Score 20 Comments pushed off through FWW with staggered stance PT-OP-G Mobility & Gait Start: 08/24/20 14:20 Freq: Status: Active Protocol: Document 08/24/20 15:24 HH (Rec: 08/24/20 16:31 [email or web address]) OP Mobility Evaluation Bed Mobility Supine to and from Sit supine to sit requires min A to pivot her R LE and vice; same for sit to supine Transfers Sit to Stand with stagger stance and FWW OP Gait Assessment Gait Gait Assistance Required: Standby Assistance Able to Maintain Weight Bearing Status Yes During Gait Assistive Devices Assistive Device Gait Belt,Front Wheeled Walker Gait Deviations General Gait Pattern Antalgic,Decreased Stride Length,Decreased Feet Clearance,Flexed Trunk,Lateral Trunk Lean Comments Gait Comments increased WB on LLE and lack of R knee extension on RLE PT-OP-J Posture/Palpation/Skin Start: 08/24/20 14:20 Freq: Status: Active Protocol: Document 08/24/20 15:24 HH (Rec: 08/24/20 16:31 [email or web address]) Palpation Assessment Location R knee Palpation Findings Soft Tissue Tightness, Tenderness Palpation Details no significant edema noted at R knee but mild swelling noted . pt is wearing compressiong sock up to R mid thigh PT-OP-K Range of Motion Start: 08/24/20 14:20 Freq: Status: Active Protocol: Document 08/24/20 15:24 (Rec: 08/24/20 16:31 [email or web address]) Knee Goniometric Range of Motion Knee Right Knee ROM WFL No Patient Position Supine Flexion Active (degrees) 70 Flexion Passive (degrees) 75 Extension Active (degrees) 10 Comments pain at end range Left Knee ROM WFL Yes Patient Position Supine Flexion Active (degrees) 110 Extension Active (degrees) 4 Knee ROM Limitations Knee ROM Limitations Soft Tissue Tightness,Muscle Weakness,Pain,Swelling PT-OP-Q Treatments Start: 08/24/20 14:20 Freq: Status: Active Protocol: Document 09/08/20 15:12 HH (Rec: 09/08/20 16:08 [id number]) Cardio Equipment Recumbent Stepper (Sci-Fit) Duration (Minutes) 6 Resistance 20 Seat Position 12 Therapeutic Exercises Supine Exercises SAQ Side right Equipment Used bolster Reps/Minutes 6 x 2 Comments slight pain noted HS stretch Supine Exercise Name with quad set Side right Reps/Minutes 5 x2 Comments cues on quad engagement Sitting Exercises seated knee flexion Sitting Exercise Name R knee Side right Equipment Used with skateboard Reps/Minutes 10 x2 Comments up to 95-97 degrees flexion Standing Exercises standing knee extension Standing Exercise Name with FWW Reps/Minutes 5x1 Gait Training Gait Activity spc Description cane at LUE Device Used SPC Level of Assistance CGA Surface ground level Distance/Duration 15ft x6 Comments min cues needed for reciprocal pattern Manual Therapy Treatment Soft Tissue Mobilization R knee Body Location proximal calf and knee joint Mobilization Type Rolling,Sustained Pressure, Trigger Point Release Intensity/Depth Moderate Body Position Supine Comments mod swelling and tenderness at jointline PT-OP-T Assessment and Plan Start: 08/24/20 14:20 Freq: Status: Active Protocol: Document 09/08/20 15:12 (Rec: 09/08/20 16:08 [id number]) Physical Therapy Assessment Goals LEFS Impairment pt scores 26 on LEFS Short Term Goal (STG) pt will score >35 on LEFS to improve her mobility and strength STG Duration 4 weeks Residential Goal (LTG) pt will score > 45 on LEFS to improve her quality of life LTG Duration 8 weeks STS Impairment pt perform STS with stagger stance and pushes off through armrests Short Term Goal (STG) pt will be able to stand up with even steps x5 times under 16 seconds STG Duration 4 weeks Boiler Mechanic Goal (LTG) pt will be able to stand up from a regular chair x5 times without using armrests safely and independently under 15 seconds LTG Duration 8 weeks gait Impairment pt is using FWW for all mobility Short Term Goal (STG) pt will progress to use SPC for all mobility safely and independently STG Duration 4 weeks Boiler Mechanic Goal (LTG) pt will progress to amb without AD for all mobility safely and independently LTG Duration 8 weeks ROM Impairment lack of Rknee ROM Short Term Goal (STG) pt will show increase in R knee AROM by >15degrees to improve her overall mobility STG Duration 4 weeks Residential Goal (LTG) pt will show increase in R knee AROM by >30 degrees to improve her overall mobility and gait mechanics LTG Duration 8 weeks Assessment Summary Assessment Pt reports of sharp pain at R knee on monday while she was practicing LAQ. Educated pt to cont SAQ instead . Her Knee flexion reaches 95-97 degrees. Started gait training with SPC today and pt has good reciprocal 2 point pattern with min cues needed. Asked pt to bring in her lynne next visit for gait training. Physical Therapy Plan Frequency and Duration Frequency of Treatment 2x/Week Duration of Treatment 8 weeks Plan of Care Start Date 08/24/20 Plan of Care End Date 10/23/20 Next Visit Focus/Plan Next Note Type Treatment Note Next Visit Plan check 5STS/ 30 seconds STS LEFS check HEP, flexion and extension exercises. stepper at the end.
--- NOTE | 2020-09-10 16:10 | PT.OTN ---
Current Diagnoses Unilateral primary osteoarthritis, right knee (09/10/20) Physical Therapy Treatment Note PT-OP-A Visit Information Start: 08/24/20 14:20 Freq: Status: Active Protocol: Document 09/10/20 15:17 HH (Rec: 09/10/20 16:10 [id number]) Out-Patient Physical Therapy Visit Information Visit Information Visit Type Treatment Note Visit Note dtr attended session Visit Start Time 15:19 Visit Stop Time 16:01 Total Visit Minutes 42 Visit Number 10/28 Number of STENCIL CUTTER MACHINE Visits 0 PT-OP-B Current Condition Start: 08/24/20 14:20 Freq: Status: Active Protocol: Document 08/24/20 15:24 HH (Rec: 08/24/20 16:31 [email or web address]) Current Condition History of Current Condition Onset Date 08/17/20 Current Complaints s/p R TKA History of Current Condition Pt is a 85yo female here with her daughter for rehab s/p R TKA on 08/17/20. Pt stated [facility] Pt is currently using FWW for all mobility and able to walk around the house 4-5 times a day. She has been doing ankle [place], ankle pumps, and seated quad set at home. Treatment Goals Patient/Caregiver Goals 1. To regain full ROM and strength for her R knee 2. To be able to walk without AD again 3. to be able to climb stairs without help Prior Functional Status Baseline Function- ADL's Independent Baseline Function- Mobility Independent Baseline Function- Gait without AD Baseline Function- Recreation/Hobbies able to walk at home without AD but SPC in community. Baseline Function- Other she was able to drive independent for all ADLs and IADLs Current Functional Impairments (Reported) Functional Limitations- ADL's requires dtr min to contact guard assistance Functional Limitations- Mobility/Gait FWW at all times Functional Limitations- Other Pt has been sleeping in her recliner since she has difficulty lifting her RLE to bed. PT-OP-C Subjective Start: 08/24/20 14:20 Freq: Status: Active Protocol: Document 09/10/20 15:17 HH (Rec: 09/10/20 16:10 [id number]) OP-PT Subjective Patient Comments Patient Comments Im doing pretty good and i used the cane to walk around the house but i did feel wobbly. I only take a pain pill at night before sleep. Patient Reported Progress Improving PT-OP-E Functional Tests Start: 08/24/20 14:20 Freq: Status: Active Protocol: Document 09/01/20 15:14 HH (Rec: 09/01/20 16:15 [id number]) Functional Tests Five Times Sit to Stand Test Score 20 Comments pushed off through FWW with staggered stance PT-OP-G Mobility & Gait Start: 08/24/20 14:20 Freq: Status: Active Protocol: Document 08/24/20 15:24 HH (Rec: 08/24/20 16:31 [email or web address]) OP Mobility Evaluation Bed Mobility Supine to and from Sit supine to sit requires min A to pivot her R LE and vice; same for sit to supine Transfers Sit to Stand with stagger stance and FWW OP Gait Assessment Gait Gait Assistance Required: Standby Assistance Able to Maintain Weight Bearing Status Yes During Gait Assistive Devices Assistive Device Gait Belt,Front Wheeled Walker Gait Deviations General Gait Pattern Antalgic,Decreased Stride Length,Decreased Feet Clearance,Flexed Trunk,Lateral Trunk Lean Comments Gait Comments increased WB on LLE and lack of R knee extension on RLE PT-OP-J Posture/Palpation/Skin Start: 08/24/20 14:20 Freq: Status: Active Protocol: Document 08/24/20 15:24 HH (Rec: 08/24/20 16:31 [email or web address]) Palpation Assessment Location R knee Palpation Findings Soft Tissue Tightness, Tenderness Palpation Details no significant edema noted at R knee but mild swelling noted . pt is wearing compressiong sock up to R mid thigh PT-OP-K Range of Motion Start: 08/24/20 14:20 Freq: Status: Active Protocol: Document 08/24/20 15:24 HH (Rec: 08/24/20 16:31 [email or web address]) Knee Goniometric Range of Motion Knee Right Knee ROM WFL No Patient Position Supine Flexion Active (degrees) 70 Flexion Passive (degrees) 75 Extension Active (degrees) 10 Comments pain at end range Left Knee ROM WFL Yes Patient Position Supine Flexion Active (degrees) 110 Extension Active (degrees) 4 Knee ROM Limitations Knee ROM Limitations Soft Tissue Tightness,Muscle Weakness,Pain,Swelling PT-OP-Q Treatments Start: 08/24/20 14:20 Freq: Status: Active Protocol: Document 09/10/20 15:17 (Rec: 09/10/20 16:10 [id number]) Cardio Equipment Recumbent Stepper (Sci-Fit) Duration (Minutes) 6 Resistance 20 Seat Position 12 Therapeutic Exercises Supine Exercises SAQ Side right Equipment Used bolster Reps/Minutes 6 x 2 Comments slight pain noted HS stretch Supine Exercise Name with quad set Side right Reps/Minutes 5 x2 Comments cues on quad engagement Sitting Exercises seated knee flexion Sitting Exercise Name R knee Side right Equipment Used with skateboard Reps/Minutes 10 x2 Comments up to 95-97 degrees flexion Gait Training Gait Activity spc Description cane at LUE Device Used SPC Level of Assistance CGA Surface ground level Distance/Duration 15ft x8 Comments min cues needed for reciprocal pattern Manual Therapy Treatment Soft Tissue Mobilization R knee Body Location proximal calf and knee joint Mobilization Type Rolling,Sustained Pressure, Trigger Point Release Intensity/Depth Moderate Body Position Supine Comments mod swelling and tenderness at jointline PT-OP-T Assessment and Plan Start: 08/24/20 14:20 Freq: Status: Active Protocol: Document 09/10/20 15:17 (Rec: 09/10/20 16:10 [id number]) Physical Therapy Assessment Goals LEFS Impairment pt scores 26 on LEFS Short Term Goal (STG) pt will score >35 on LEFS to improve her mobility and strength STG Duration 4 weeks Hematology Nurse Educator Goal (LTG) pt will score > 45 on LEFS to improve her quality of life LTG Duration 8 weeks STS Impairment pt perform STS with stagger stance and pushes off through armrests Short Term Goal (STG) pt will be able to stand up with even steps x5 times under 16 seconds STG Duration 4 weeks Hematology Nurse Educator Goal (LTG) pt will be able to stand up from a regular chair x5 times without using armrests safely and independently under 15 seconds LTG Duration 8 weeks gait Impairment pt is using FWW for all mobility Short Term Goal (STG) pt will progress to use SPC for all mobility safely and independently STG Duration 4 weeks Hematology Nurse Educator Goal (LTG) pt will progress to amb without AD for all mobility safely and independently LTG Duration 8 weeks ROM Impairment lack of Rknee ROM Short Term Goal (STG) pt will show increase in R knee AROM by >15degrees to improve her overall mobility STG Duration 4 weeks Hematology Nurse Educator Goal (LTG) pt will show increase in R knee AROM by >30 degrees to improve her overall mobility and gait mechanics LTG Duration 8 weeks Assessment Summary Assessment Pt's sharp pain is gone and she stopped doing LAQ at home. Pt is getting better with her gait using her hurricane. Physical Therapy Plan Frequency and Duration Frequency of Treatment 2x/Week Duration of Treatment 8 weeks Plan of Care Start Date 08/24/20 Plan of Care End Date 10/23/20 Next Visit Focus/Plan Next Note Type Treatment Note Next Visit Plan check 5STS/ 30 seconds STS LEFS check HEP, flexion and extension exercises. stepper at the end.
--- NOTE | 2020-09-15 16:12 | PT.OTN ---
Current Diagnoses Unilateral primary osteoarthritis, right knee (09/15/20) Physical Therapy Treatment Note PT-OP-A Visit Information Start: 08/24/20 14:20 Freq: Status: Active Protocol: Document 09/15/20 15:19 HH (Rec: 09/15/20 16:12 [id number]) Out-Patient Physical Therapy Visit Information Visit Information Visit Type Treatment Note Visit Note dtr attended session next f/u with surgeon 09/30 Visit Start Time 15:17 Visit Stop Time 16:00 Total Visit Minutes 43 Visit Number 11/28 Number of BIODIESEL ENGINEERING MANAGER Visits 0 PT-OP-B Current Condition Start: 08/24/20 14:20 Freq: Status: Active Protocol: Document 08/24/20 15:24 HH (Rec: 08/24/20 16:31 HH [email or web address]) Current Condition History of Current Condition Onset Date 08/17/20 Current Complaints s/p R TKA History of Current Condition Pt is a 85yo female here with her daughter for rehab s/p R TKA on 08/17/20. Pt stated she has been progressing very well since surgrey. Pt is currently using FWW for all mobility and able to walk around the house 4-5 times a day. She has been doing ankle sioux, ankle pumps, and seated quad set at home. Treatment Goals Patient/Caregiver Goals 1. To regain full ROM and strength for her R knee 2. To be able to walk without AD again 3. to be able to climb stairs without help Prior Functional Status Baseline Function- ADL's Independent Baseline Function- Mobility Independent Baseline Function- Gait without AD Baseline Function- Recreation/Hobbies able to walk at home without AD but SPC in community. Baseline Function- Other she was able to drive independent for all ADLs and IADLs Current Functional Impairments (Reported) Functional Limitations- ADL's requires dtr min to contact guard assistance Functional Limitations- Mobility/Gait FWW at all times Functional Limitations- Other Pt has been sleeping in her recliner since she has difficulty lifting her RLE to bed. PT-OP-C Subjective Start: 08/24/20 14:20 Freq: Status: Active Protocol: Document 09/15/20 15:19 HH (Rec: 09/15/20 16:12 HH [id number]) OP-PT Subjective Patient Comments Patient Comments Edie been using the cane at home. But edie been getting some restless leg for the past few nights and it happened before surgery and i dont know why. I only take the hydrocotizone at night time Patient Reported Progress Improving PT-OP-E Functional Tests Start: 08/24/20 14:20 Freq: Status: Active Protocol: Document 09/01/20 15:14 HH (Rec: 09/01/20 16:15 [id number]) Functional Tests Five Times Sit to Stand Test Score 20 Comments pushed off through FWW with staggered stance PT-OP-G Mobility & Gait Start: 08/24/20 14:20 Freq: Status: Active Protocol: Document 08/24/20 15:24 HH (Rec: 08/24/20 16:31 [email or web address]) OP Mobility Evaluation Bed Mobility Supine to and from Sit supine to sit requires min A to pivot her R LE and vice; same for sit to supine Transfers Sit to Stand with stagger stance and FWW OP Gait Assessment Gait Gait Assistance Required: Standby Assistance Able to Maintain Weight Bearing Status Yes During Gait Assistive Devices Assistive Device Gait Belt,Front Wheeled Walker Gait Deviations General Gait Pattern Antalgic,Decreased Stride Length,Decreased Feet Clearance,Flexed Trunk,Lateral Trunk Lean Comments Gait Comments increased WB on LLE and lack of R knee extension on RLE PT-OP-J Posture/Palpation/Skin Start: 08/24/20 14:20 Freq: Status: Active Protocol: Document 08/24/20 15:24 HH (Rec: 08/24/20 16:31 [email or web address]) Palpation Assessment Location R knee Palpation Findings Soft Tissue Tightness, Tenderness Palpation Details no significant edema noted at R knee but mild swelling noted . pt is wearing compressiong sock up to R mid thigh PT-OP-K Range of Motion Start: 08/24/20 14:20 Freq: Status: Active Protocol: Document 08/24/20 15:24 HH (Rec: 08/24/20 16:31 [email or web address]) Knee Goniometric Range of Motion Knee Right Knee ROM WFL No Patient Position Supine Flexion Active (degrees) 70 Flexion Passive (degrees) 75 Extension Active (degrees) 10 Comments pain at end range Left Knee ROM WFL Yes Patient Position Supine Flexion Active (degrees) 110 Extension Active (degrees) 4 Knee ROM Limitations Knee ROM Limitations Soft Tissue Tightness,Muscle Weakness,Pain,Swelling PT-OP-Q Treatments Start: 08/24/20 14:20 Freq: Status: Active Protocol: Document 09/15/20 15:19 (Rec: 09/15/20 16:12 [id number]) Cardio Equipment Recumbent Stepper (Sci-Fit) Duration (Minutes) 7 Resistance 2.5 Seat Position 11 Gym Equipment Shuttle Recovery SL squat Resistance 25# R, 37# L Shuttle Recovery Platform Stable Reps/Time pressure pain at R knee Therapeutic Exercises Supine Exercises SAQ Side right Equipment Used bolster Reps/Minutes 6 x 2 Comments slight pain noted quad set Supine Exercise Name R knee Side right Equipment Used pillow underneath R knee Reps/Minutes 5 x2 Comments with overpressure Sitting Exercises seated knee flexion Sitting Exercise Name R knee Side right Equipment Used with skateboard Reps/Minutes 10 x2 Comments up to 95-97 degrees flexion, with overpress at end range Standing Exercises standing knee extension Standing Exercise Name with FWW Reps/Minutes 5x2 Comments cues on knee extension Gait Training Gait Activity spc Description cane at LUE Device Used SPC Level of Assistance CGA Surface ground level Distance/Duration 20ft x6 Comments min cues needed for reciprocal pattern Manual Therapy Treatment Soft Tissue Mobilization R knee Body Location proximal calf and knee joint Mobilization Type Rolling,Sustained Pressure, Trigger Point Release Intensity/Depth Moderate Body Position Supine Comments mod swelling and tenderness at jointline PT-OP-T Assessment and Plan Start: 08/24/20 14:20 Freq: Status: Active Protocol: Document 09/15/20 15:19 (Rec: 09/15/20 16:12 [id number]) Physical Therapy Assessment Goals LEFS Impairment pt scores 26 on LEFS Short Term Goal (STG) pt will score >35 on LEFS to improve her mobility and strength STG Duration 4 weeks Senior Care Goal (LTG) pt will score > 45 on LEFS to improve her quality of life LTG Duration 8 weeks STS Impairment pt perform STS with stagger stance and pushes off through armrests Short Term Goal (STG) pt will be able to stand up with even steps x5 times under 16 seconds STG Duration 4 weeks Senior Care Goal (LTG) pt will be able to stand up from a regular chair x5 times without using armrests safely and independently under 15 seconds LTG Duration 8 weeks gait Impairment pt is using FWW for all mobility Short Term Goal (STG) pt will progress to use SPC for all mobility safely and independently STG Duration 4 weeks Senior Care Goal (LTG) pt will progress to amb without AD for all mobility safely and independently LTG Duration 8 weeks ROM Impairment lack of Rknee ROM Short Term Goal (STG) pt will show increase in R knee AROM by >15degrees to improve her overall mobility STG Duration 4 weeks [place] [employer] Goal (LTG) pt will show increase in R knee AROM by >30 degrees to improve her overall mobility and gait mechanics LTG Duration 8 weeks Assessment Summary Assessment pt did well today with increaesd activity tolerance and less pain. Flexion AROM= 97, PROM =100/. Physical Therapy Plan Frequency and Duration Frequency of Treatment 2x/Week Duration of Treatment 8 weeks Plan of Care Start Date 08/24/20 Plan of Care End Date 10/23/20 Next Visit Focus/Plan Next Note Type Treatment Note Next Visit Plan check 5STS/ 30 seconds STS LEFS check HEP, flexion and extension exercises. stepper at the end.
--- NOTE | 2020-09-17 16:02 | PT.OTN ---
Current Diagnoses Unilateral primary osteoarthritis, right knee (09/17/20) Physical Therapy Treatment Note PT-OP-A Visit Information Start: 08/24/20 14:20 Freq: Status: Active Protocol: Document 09/17/20 15:17 HH (Rec: 09/17/20 16:02 [id number]) Out-Patient Physical Therapy Visit Information Visit Information Visit Type Treatment Note Visit Note dtr attended session next f/u with surgeon 09/30 Visit Start Time 15:16 Visit Stop Time 16:01 Total Visit Minutes 45 Visit Number 12/28 Number of MANAGER ART Visits 0 PT-OP-B Current Condition Start: 08/24/20 14:20 Freq: Status: Active Protocol: Document 08/24/20 15:24 HH (Rec: 08/24/20 16:31 [email or web address]) Current Condition History of Current Condition Onset Date 08/17/20 Current Complaints s/p R TKA History of Current Condition Pt is a 85yo female here with her daughter for rehab s/p R TKA on 08/17/20. Pt stated she has been progressing very well since surgrey. Pt is currently using FWW for all mobility and able to walk around the house 4-5 times a day. She has been doing ankle match[place]ish band, ankle pumps, and seated quad set at home. Treatment Goals Patient/Caregiver Goals 1. To regain full ROM and strength for her R knee 2. To be able to walk without AD again 3. to be able to climb stairs without help Prior Functional Status Baseline Function- ADL's Independent Baseline Function- Mobility Independent Baseline Function- Gait without AD Baseline Function- Recreation/Hobbies able to walk at home without AD but SPC in community. Baseline Function- Other she was able to drive independent for all ADLs and IADLs Current Functional Impairments (Reported) Functional Limitations- ADL's requires dtr min to contact guard assistance Functional Limitations- Mobility/Gait FWW at all times Functional Limitations- Other Pt has been sleeping in her recliner since she has difficulty lifting her RLE to bed. PT-OP-C Subjective Start: 08/24/20 14:20 Freq: Status: Active Protocol: Document 09/17/20 15:17 HH (Rec: 09/17/20 16:02 [id number]) OP-PT Subjective Patient Comments Patient Comments Im doing good and using the cane is getting easeir. Patient Reported Progress Improving PT-OP-E Functional Tests Start: 08/24/20 14:20 Freq: Status: Active Protocol: Document 09/01/20 15:14 HH (Rec: 09/01/20 16:15 [id number]) Functional Tests Five Times Sit to Stand Test Score 20 Comments pushed off through FWW with staggered stance PT-OP-G Mobility & Gait Start: 08/24/20 14:20 Freq: Status: Active Protocol: Document 08/24/20 15:24 HH (Rec: 08/24/20 16:31 [email or web address]) OP Mobility Evaluation Bed Mobility Supine to and from Sit supine to sit requires min A to pivot her R LE and vice; same for sit to supine Transfers Sit to Stand with stagger stance and FWW OP Gait Assessment Gait Gait Assistance Required: Standby Assistance Able to Maintain Weight Bearing Status Yes During Gait Assistive Devices Assistive Device Gait Belt,Front Wheeled Walker Gait Deviations General Gait Pattern Antalgic,Decreased Stride Length,Decreased Feet Clearance,Flexed Trunk,Lateral Trunk Lean Comments Gait Comments increased WB on LLE and lack of R knee extension on RLE PT-OP-J Posture/Palpation/Skin Start: 08/24/20 14:20 Freq: Status: Active Protocol: Document 08/24/20 15:24 HH (Rec: 08/24/20 16:31 [email or web address]) Palpation Assessment Location R knee Palpation Findings Soft Tissue Tightness, Tenderness Palpation Details no significant edema noted at R knee but mild swelling noted . pt is wearing compressiong sock up to R mid thigh PT-OP-K Range of Motion Start: 08/24/20 14:20 Freq: Status: Active Protocol: Document 08/24/20 15:24 HH (Rec: 08/24/20 16:31 [email or web address]) Knee Goniometric Range of Motion Knee Right Knee ROM WFL No Patient Position Supine Flexion Active (degrees) 70 Flexion Passive (degrees) 75 Extension Active (degrees) 10 Comments pain at end range Left Knee ROM WFL Yes Patient Position Supine Flexion Active (degrees) 110 Extension Active (degrees) 4 Knee ROM Limitations Knee ROM Limitations Soft Tissue Tightness,Muscle Weakness,Pain,Swelling PT-OP-Q Treatments Start: 08/24/20 14:20 Freq: Status: Active Protocol: Document 09/17/20 15:17 HH (Rec: 09/17/20 16:02 [id number]) Cardio Equipment Recumbent Stepper (Sci-Fit) Duration (Minutes) 7 Resistance 2.5 Seat Position 11 Gym Equipment Shuttle Recovery B squat Resistance #50 Shuttle Recovery Platform Stable SL squat Resistance 25# R, 37# L Shuttle Recovery Platform Stable Reps/Time pressure pain at R knee Therapeutic Exercises Supine Exercises quad set Supine Exercise Name R knee Side right Equipment Used pillow underneath R knee Reps/Minutes 5 x2 Comments with overpressure Sitting Exercises seated knee flexion Sitting Exercise Name R knee Side right Equipment Used with skateboard Reps/Minutes 10 x2 Comments up to 95-97 degrees flexion, with overpress at end range Standing Exercises STS Reps/Minutes 5x2 without UE support Comments cues on even steps; standing knee extension Standing Exercise Name with FWW Reps/Minutes 5x2 Comments cues on knee extension Gait Training Gait Activity spc Description cane at LUE Device Used SPC Level of Assistance CGA Surface ground level Distance/Duration 150ft x1 Comments min cues needed for reciprocal pattern PT-OP-T Assessment and Plan Start: 08/24/20 14:20 Freq: Status: Active Protocol: Document 09/17/20 15:17 (Rec: 09/17/20 16:02 [id number]) Physical Therapy Assessment Goals LEFS Impairment pt scores 26 on LEFS Short Term Goal (STG) pt will score >35 on LEFS to improve her mobility and strength STG Duration 4 weeks Fall Internship Goal (LTG) pt will score > 45 on LEFS to improve her quality of life LTG Duration 8 weeks STS Impairment pt perform STS with stagger stance and pushes off through armrests Short Term Goal (STG) pt will be able to stand up with even steps x5 times under 16 seconds STG Duration 4 weeks Fall Internship Goal (LTG) pt will be able to stand up from a regular chair x5 times without using armrests safely and independently under 15 seconds LTG Duration 8 weeks gait Impairment pt is using FWW for all mobility Short Term Goal (STG) pt will progress to use SPC for all mobility safely and independently STG Duration 4 weeks Fall Internship Goal (LTG) pt will progress to amb without AD for all mobility safely and independently LTG Duration 8 weeks ROM Impairment lack of Rknee ROM Short Term Goal (STG) pt will show increase in R knee AROM by >15degrees to improve her overall mobility STG Duration 4 weeks Jail Goal (LTG) pt will show increase in R knee AROM by >30 degrees to improve her overall mobility and gait mechanics LTG Duration 8 weeks Assessment Summary Assessment Pt consistently improving. She is able to amb 150 ft with SPC and complete 5 STS x 2set without UE push off. Physical Therapy Plan Frequency and Duration Frequency of Treatment 2x/Week Duration of Treatment 8 weeks Plan of Care Start Date 08/24/20 Plan of Care End Date 10/23/20 Next Visit Focus/Plan Next Note Type Treatment Note Next Visit Plan check 5STS/ 30 seconds STS LEFS check HEP, flexion and extension exercises. stepper at the end.
--- NOTE | 2020-09-22 16:00 | PT.OTN ---
Current Diagnoses Unilateral primary osteoarthritis, right knee (09/22/20) Physical Therapy Treatment Note PT-OP-A Visit Information Start: 08/24/20 14:20 Freq: Status: Active Protocol: Document 09/22/20 15:22 HH (Rec: 09/22/20 16:00 [id number]) Out-Patient Physical Therapy Visit Information Visit Information Visit Type Treatment Note Visit Note dtr attended session next f/u with surgeon 09/30. Pt came in with SPC Visit Start Time 15:18 Visit Stop Time 16:01 Total Visit Minutes 43 Visit Number 01/28 Number of STEAM LOCOMOTIVE FIRER/FIREMAN Visits 0 PT-OP-B Current Condition Start: 08/24/20 14:20 Freq: Status: Active Protocol: Document 08/24/20 15:24 HH (Rec: 08/24/20 16:31 [email or web address]) Current Condition History of Current Condition Onset Date 08/17/20 Current Complaints s/p R TKA History of Current Condition Pt is a 85yo female here with her daughter for rehab s/p R TKA on 08/17/20. Pt stated she has been progressing very well since surgrey. Pt is currently using FWW for all mobility and able to walk around the house 4-5 times a day. She has been doing ankle [place], ankle pumps, and seated quad set at home. Treatment Goals Patient/Caregiver Goals 1. To regain full ROM and strength for her R knee 2. To be able to walk without AD again 3. to be able to climb stairs without help Prior Functional Status Baseline Function- ADL's Independent Baseline Function- Mobility Independent Baseline Function- Gait without AD Baseline Function- Recreation/Hobbies able to walk at home without AD but SPC in community. Baseline Function- Other she was able to drive independent for all ADLs and IADLs Current Functional Impairments (Reported) Functional Limitations- ADL's requires dtr min to contact guard assistance Functional Limitations- Mobility/Gait FWW at all times Functional Limitations- Other Pt has been sleeping in her recliner since she has difficulty lifting her RLE to bed. PT-OP-C Subjective Start: 08/24/20 14:20 Freq: Status: Active Protocol: Document 09/22/20 15:22 HH (Rec: 09/22/20 16:00 [id number]) OP-PT Subjective Patient Comments Patient Comments I have been walking a lot around the house with the cane only now. However, my leg is more swollen and edie been wearing my compression sock Patient Reported Progress Improving PT-OP-E Functional Tests Start: 08/24/20 14:20 Freq: Status: Active Protocol: Document 09/01/20 15:14 HH (Rec: 09/01/20 16:15 [id number]) Functional Tests Five Times Sit to Stand Test Score 20 Comments pushed off through FWW with staggered stance PT-OP-G Mobility & Gait Start: 08/24/20 14:20 Freq: Status: Active Protocol: Document 08/24/20 15:24 HH (Rec: 08/24/20 16:31 [email or web address]) OP Mobility Evaluation Bed Mobility Supine to and from Sit supine to sit requires min A to pivot her R LE and vice; same for sit to supine Transfers Sit to Stand with stagger stance and FWW OP Gait Assessment Gait Gait Assistance Required: Standby Assistance Able to Maintain Weight Bearing Status Yes During Gait Assistive Devices Assistive Device Gait Belt,Front Wheeled Walker Gait Deviations General Gait Pattern Antalgic,Decreased Stride Length,Decreased Feet Clearance,Flexed Trunk,Lateral Trunk Lean Comments Gait Comments increased WB on LLE and lack of R knee extension on RLE PT-OP-J Posture/Palpation/Skin Start: 08/24/20 14:20 Freq: Status: Active Protocol: Document 08/24/20 15:24 HH (Rec: 08/24/20 16:31 [email or web address]) Palpation Assessment Location R knee Palpation Findings Soft Tissue Tightness, Tenderness Palpation Details no significant edema noted at R knee but mild swelling noted . pt is wearing compressiong sock up to R mid thigh PT-OP-K Range of Motion Start: 08/24/20 14:20 Freq: Status: Active Protocol: Document 08/24/20 15:24 HH (Rec: 08/24/20 16:31 [email or web address]) Knee Goniometric Range of Motion Knee Right Knee ROM WFL No Patient Position Supine Flexion Active (degrees) 70 Flexion Passive (degrees) 75 Extension Active (degrees) 10 Comments pain at end range Left Knee ROM WFL Yes Patient Position Supine Flexion Active (degrees) 110 Extension Active (degrees) 4 Knee ROM Limitations Knee ROM Limitations Soft Tissue Tightness,Muscle Weakness,Pain,Swelling PT-OP-Q Treatments Start: 08/24/20 14:20 Freq: Status: Active Protocol: Document 09/22/20 15:22 (Rec: 09/22/20 16:00 [id number]) Cardio Equipment Recumbent Stepper (Sci-Fit) Duration (Minutes) 15 Resistance 2.5 Seat Position 11 Other 7 min + 8 min Therapeutic Exercises Sitting Exercises seated knee flexion Sitting Exercise Name R knee Side right Equipment Used with skateboard Reps/Minutes 5 mins Comments up to 95-97 degrees flexion, with overpress at end range Standing Exercises standing knee extension Standing Exercise Name with FWW Reps/Minutes 5x2 Comments cues on knee extension Manual Therapy Treatment Soft Tissue Mobilization R knee Body Location proximal calf and knee joint Mobilization Type Rolling,Sustained Pressure, Trigger Point Release Intensity/Depth Moderate Body Position Supine Comments upward stroke increased swelling and tenderness at calves and jointline PT-OP-T Assessment and Plan Start: 08/24/20 14:20 Freq: Status: Active Protocol: Document 09/22/20 15:22 (Rec: 09/22/20 16:00 [id number]) Physical Therapy Assessment Goals LEFS Impairment pt scores 26 on LEFS Short Term Goal (STG) pt will score >35 on LEFS to improve her mobility and strength STG Duration 4 weeks Alf Goal (LTG) pt will score > 45 on LEFS to improve her quality of life LTG Duration 8 weeks STS Impairment pt perform STS with stagger stance and pushes off through armrests Short Term Goal (STG) pt will be able to stand up with even steps x5 times under 16 seconds STG Duration 4 weeks Alf Goal (LTG) pt will be able to stand up from a regular chair x5 times without using armrests safely and independently under 15 seconds LTG Duration 8 weeks gait Impairment pt is using FWW for all mobility Short Term Goal (STG) pt will progress to use SPC for all mobility safely and independently STG Duration 4 weeks Staff Assistant Goal (LTG) pt will progress to amb without AD for all mobility safely and independently LTG Duration 8 weeks ROM Impairment lack of Rknee ROM Short Term Goal (STG) pt will show increase in R knee AROM by >15degrees to improve her overall mobility STG Duration 4 weeks Staff Assistant Goal (LTG) pt will show increase in R knee AROM by >30 degrees to improve her overall mobility and gait mechanics LTG Duration 8 weeks Assessment Summary Assessment Pt has noticeable increased swelling and warm to touch at R knee but pt does not have a fever and no skin change noted at incision. It is mostly because of her increased walking activity over the weekend. Recommended pt to wear compression socks more often and reduce her walking activity but focus more on ROM activities for the next 2 days. Will reassess on next visit. Physical Therapy Plan Frequency and Duration Frequency of Treatment 2x/Week Duration of Treatment 8 weeks Plan of Care Start Date 08/24/20 Plan of Care End Date 10/23/20 Next Visit Focus/Plan Next Note Type Treatment Note Next Visit Plan check 5STS/ 30 seconds STS LEFS check HEP, flexion and extension exercises. stepper at the end.
--- NOTE | 2020-09-24 16:15 | PT.OTN ---
Current Diagnoses Unilateral primary osteoarthritis, right knee (09/24/20) Physical Therapy Treatment Note PT-OP-A Visit Information Start: 08/24/20 14:20 Freq: Status: Active Protocol: Document 09/24/20 16:10 HH (Rec: 09/24/20 16:15 HH [email or web address]) Out-Patient Physical Therapy Visit Information Visit Information Visit Type Treatment Note Visit Note dtr attended session next f/u with surgeon 09/30. Pt came in with SPC Visit Start Time 15:00 Visit Stop Time 16:00 Total Visit Minutes 45 Visit Number 02/28 Number of ORDER RUNNER Visits 0 PT-OP-B Current Condition Start: 08/24/20 14:20 Freq: Status: Active Protocol: Document 08/24/20 15:24 HH (Rec: 08/24/20 16:31 HH [email or web address]) Current Condition History of Current Condition Onset Date 08/17/20 Current Complaints s/p R TKA History of Current Condition Pt is a 85yo female here with her daughter for rehab s/p R TKA on 08/17/20. Pt stated she has been progressing very well since surgrey. Pt is currently using FWW for all mobility and able to walk around the house 4-5 times a day. She has been doing ankle chefornak, ankle pumps, and seated quad set at home. Treatment Goals Patient/Caregiver Goals 1. To regain full ROM and strength for her R knee 2. To be able to walk without AD again 3. to be able to climb stairs without help Prior Functional Status Baseline Function- ADL's Independent Baseline Function- Mobility Independent Baseline Function- Gait without AD Baseline Function- Recreation/Hobbies able to walk at home without AD but SPC in community. Baseline Function- Other she was able to drive independent for all ADLs and IADLs Current Functional Impairments (Reported) Functional Limitations- ADL's requires dtr min to contact guard assistance Functional Limitations- Mobility/Gait FWW at all times Functional Limitations- Other Pt has been sleeping in her recliner since she has difficulty lifting her RLE to bed. PT-OP-C Subjective Start: 08/24/20 14:20 Freq: Status: Active Protocol: Document 09/24/20 16:10 HH (Rec: 09/24/20 16:15 HH [email or web address]) OP-PT Subjective Patient Comments Patient Comments My swelling has gone down a little bit and i am able to move better again. However, i has some rash at my goetz and i dont known why. Patient Reported Progress Same PT-OP-E Functional Tests Start: 08/24/20 14:20 Freq: Status: Active Protocol: Document 09/01/20 15:14 HH (Rec: 09/01/20 16:15 [id number]) Functional Tests Five Times Sit to Stand Test Score 20 Comments pushed off through FWW with staggered stance PT-OP-G Mobility & Gait Start: 08/24/20 14:20 Freq: Status: Active Protocol: Document 08/24/20 15:24 HH (Rec: 08/24/20 16:31 [email or web address]) OP Mobility Evaluation Bed Mobility Supine to and from Sit supine to sit requires min A to pivot her R LE and vice; same for sit to supine Transfers Sit to Stand with stagger stance and FWW OP Gait Assessment Gait Gait Assistance Required: Standby Assistance Able to Maintain Weight Bearing Status Yes During Gait Assistive Devices Assistive Device Gait Belt,Front Wheeled Walker Gait Deviations General Gait Pattern Antalgic,Decreased Stride Length,Decreased Feet Clearance,Flexed Trunk,Lateral Trunk Lean Comments Gait Comments increased WB on LLE and lack of R knee extension on RLE PT-OP-J Posture/Palpation/Skin Start: 08/24/20 14:20 Freq: Status: Active Protocol: Document 08/24/20 15:24 HH (Rec: 08/24/20 16:31 [email or web address]) Palpation Assessment Location R knee Palpation Findings Soft Tissue Tightness, Tenderness Palpation Details no significant edema noted at R knee but mild swelling noted . pt is wearing compressiong sock up to R mid thigh PT-OP-K Range of Motion Start: 08/24/20 14:20 Freq: Status: Active Protocol: Document 08/24/20 15:24 HH (Rec: 08/24/20 16:31 [email or web address]) Knee Goniometric Range of Motion Knee Right Knee ROM WFL No Patient Position Supine Flexion Active (degrees) 70 Flexion Passive (degrees) 75 Extension Active (degrees) 10 Comments pain at end range Left Knee ROM WFL Yes Patient Position Supine Flexion Active (degrees) 110 Extension Active (degrees) 4 Knee ROM Limitations Knee ROM Limitations Soft Tissue Tightness,Muscle Weakness,Pain,Swelling PT-OP-Q Treatments Start: 08/24/20 14:20 Freq: Status: Active Protocol: Document 09/24/20 16:10 HH (Rec: 09/24/20 16:15 [email or web address]) Cardio Equipment Recumbent Stepper (Sci-Fit) Duration (Minutes) 15 Resistance 2.5 Seat Position 10 Other 7 min Gym Equipment Shuttle Recovery B squat Resistance #50 Shuttle Recovery Platform Stable SL squat Resistance 25# R, 37# L Shuttle Recovery Platform Stable Reps/Time pressure pain at R knee Therapeutic Exercises Supine Exercises SAQ Side right Reps/Minutes 6x2 quad set Supine Exercise Name R knee Side right Equipment Used pillow underneath R knee Reps/Minutes 5 x2 Comments with overpressure Sitting Exercises seated knee flexion Sitting Exercise Name R knee Side right Equipment Used with skateboard Reps/Minutes 5 mins Comments up to 95-97 degrees flexion, with overpress at end range Manual Therapy Treatment Soft Tissue Mobilization R thigh Body Location quads, adductors and hamstrings Mobilization Type Rolling Intensity/Depth Moderate Body Position Supine Comments swelling noted at quad, adductors and hamstrigns , upward stroke applied R knee Body Location proximal calf and knee joint Mobilization Type Rolling,Sustained Pressure, Trigger Point Release Intensity/Depth Moderate Body Position Supine Comments upward stroke reduced swelling and tenderness at calves and jointline PT-OP-T Assessment and Plan Start: 08/24/20 14:20 Freq: Status: Active Protocol: Document 09/24/20 16:10 (Rec: 09/24/20 16:15 [email or web address]) Physical Therapy Assessment Goals LEFS Impairment pt scores 26 on LEFS Short Term Goal (STG) pt will score >35 on LEFS to improve her mobility and strength STG Duration 4 weeks Racker [employer] Board Goal (LTG) pt will score > 45 on LEFS to improve her quality of life LTG Duration 8 weeks STS Impairment pt perform STS with stagger stance and pushes off through armrests Short Term Goal (STG) pt will be able to stand up with even steps x5 times under 16 seconds STG Duration 4 weeks Racker Octave Board Goal (LTG) pt will be able to stand up from a regular chair x5 times without using armrests safely and independently under 15 seconds LTG Duration 8 weeks gait Impairment pt is using FWW for all mobility Short Term Goal (STG) pt will progress to use SPC for all mobility safely and independently STG Duration 4 weeks Racker Octave Board Goal (LTG) pt will progress to amb without AD for all mobility safely and independently LTG Duration 8 weeks ROM Impairment lack of Rknee ROM Short Term Goal (STG) pt will show increase in R knee AROM by >15degrees to improve her overall mobility STG Duration 4 weeks Racker Octave Board Goal (LTG) pt will show increase in R knee AROM by >30 degrees to improve her overall mobility and gait mechanics LTG Duration 8 weeks Assessment Summary Assessment pt still has remaining swelling from her last weekend activities but improved since monday. Cont manual therapy focused today on R thigh and she nahun session well. Physical Therapy Plan Frequency and Duration Frequency of Treatment 2x/Week Duration of Treatment 8 weeks Plan of Care Start Date 08/24/20 Plan of Care End Date 10/23/20 Next Visit Focus/Plan Next Note Type Treatment Note Next Visit Plan STS LEFS check HEP, flexion and extension exercises. stepper at the end.
--- NOTE | 2020-09-29 14:46 | PT.OTN ---
Current Diagnoses Unilateral primary osteoarthritis, right knee (09/29/20) Physical Therapy Treatment Note PT-OP-A Visit Information Start: 08/24/20 14:20 Freq: Status: Active Protocol: Document 09/29/20 13:48 AW (Rec: 09/29/20 14:45 AW [id number]) Out-Patient Physical Therapy Visit Information Visit Information Visit Type Treatment Note PT-OP-B Current Condition Start: 08/24/20 14:20 Freq: Status: Active Protocol: Document 08/24/20 15:24 HH (Rec: 08/24/20 16:31 HH [email or web address]) Current Condition History of Current Condition Onset Date 08/17/20 Current Complaints s/p R TKA History of Current Condition Pt is a 85yo female here with her daughter for rehab s/p R TKA on 08/17/20. Pt stated she has been progressing very well since surgrey. Pt is currently using FWW for all mobility and able to walk around the house 4-5 times a day. She has been doing ankle chilkat, ankle pumps, and seated quad set at home. Treatment Goals Patient/Caregiver Goals 1. To regain full ROM and strength for her R knee 2. To be able to walk without AD again 3. to be able to climb stairs without help Prior Functional Status Baseline Function- ADL's Independent Baseline Function- Mobility Independent Baseline Function- Gait without AD Baseline Function- Recreation/Hobbies able to walk at home without AD but SPC in community. Baseline Function- Other she was able to drive independent for all ADLs and IADLs Current Functional Impairments (Reported) Functional Limitations- ADL's requires dtr min to contact guard assistance Functional Limitations- Mobility/Gait FWW at all times Functional Limitations- Other Pt has been sleeping in her recliner since she has difficulty lifting her RLE to bed. PT-OP-C Subjective Start: 08/24/20 14:20 Freq: Status: Active Protocol: Document 09/29/20 13:48 AW (Rec: 09/29/20 14:45 AW [id number]) OP-PT Subjective Patient Comments Patient Comments My legs break out when I wear my compression socks so I might be a little more swollen . Patient Reported Progress Same PT-OP-E Functional Tests Start: 08/24/20 14:20 Freq: Status: Active Protocol: Document 09/01/20 15:14 HH (Rec: 09/01/20 16:15 [id number]) Functional Tests Five Times Sit to Stand Test Score 20 Comments pushed off through FWW with staggered stance PT-OP-G Mobility & Gait Start: 08/24/20 14:20 Freq: Status: Active Protocol: Document 08/24/20 15:24 HH (Rec: 08/24/20 16:31 [email or web address]) OP Mobility Evaluation Bed Mobility Supine to and from Sit supine to sit requires min A to pivot her R LE and vice; same for sit to supine Transfers Sit to Stand with stagger stance and FWW OP Gait Assessment Gait Gait Assistance Required: Standby Assistance Able to Maintain Weight Bearing Status Yes During Gait Assistive Devices Assistive Device Gait Belt,Front Wheeled Walker Gait Deviations General Gait Pattern Antalgic,Decreased Stride Length,Decreased Feet Clearance,Flexed Trunk,Lateral Trunk Lean Comments Gait Comments increased WB on LLE and lack of R knee extension on RLE PT-OP-J Posture/Palpation/Skin Start: 08/24/20 14:20 Freq: Status: Active Protocol: Document 08/24/20 15:24 HH (Rec: 08/24/20 16:31 [email or web address]) Palpation Assessment Location R knee Palpation Findings Soft Tissue Tightness, Tenderness Palpation Details no significant edema noted at R knee but mild swelling noted . pt is wearing compressiong sock up to R mid thigh PT-OP-K Range of Motion Start: 08/24/20 14:20 Freq: Status: Active Protocol: Document 08/24/20 15:24 HH (Rec: 08/24/20 16:31 [email or web address]) Knee Goniometric Range of Motion Knee Right Knee ROM WFL No Patient Position Supine Flexion Active (degrees) 70 Flexion Passive (degrees) 75 Extension Active (degrees) 10 Comments pain at end range Left Knee ROM WFL Yes Patient Position Supine Flexion Active (degrees) 110 Extension Active (degrees) 4 Knee ROM Limitations Knee ROM Limitations Soft Tissue Tightness,Muscle Weakness,Pain,Swelling PT-OP-Q Treatments Start: 08/24/20 14:20 Freq: Status: Active Protocol: Document 09/29/20 13:48 AW (Rec: 09/29/20 14:45 AW [id number]) Cardio Equipment Recumbent Stepper (Sci-Fit) Duration (Minutes) 7 Resistance 2.5 Seat Position 10 Other beginning of session Gym Equipment Shuttle Recovery B squat Resistance #50 Shuttle Recovery Platform Stable SL squat Resistance 25# R, 37# L Shuttle Recovery Platform Stable Reps/Time cued knee posture R knee; no c /o increased pain Therapeutic Exercises Supine Exercises SAQ Side right Reps/Minutes 6x2 Comments 5 sec hold heel slide Supine Exercise Name r knee Side right Reps/Minutes x8 quad set Supine Exercise Name R knee Side right Equipment Used pillow underneath R knee Reps/Minutes 5 x2 Comments with overpressure Sitting Exercises seated knee flexion Sitting Exercise Name R knee Side right Equipment Used with skateboard Reps/Minutes 5 mins Comments up to 95-97 degrees flexion, with overpress at end range Standing Exercises resisted TKE Standing Exercise Name resisted TKE Side right Resistance level 1 Equipment Used TB, hurrycane Reps/Minutes x10 reps Comments cued WB LLE Manual Therapy Treatment Soft Tissue Mobilization R knee Body Location proximal calf and knee joint Mobilization Type Rolling,Sustained Pressure, Trigger Point Release Intensity/Depth Moderate Body Position Supine Comments upward stroke, MLD for edema management PT-OP-T Assessment and Plan Start: 08/24/20 14:20 Freq: Status: Active Protocol: Document 09/29/20 13:48 AW (Rec: 09/29/20 14:45 AW [id number]) Physical Therapy Assessment Goals LEFS Impairment pt scores 26 on LEFS Short Term Goal (STG) pt will score >35 on LEFS to improve her mobility and strength STG Duration 4 weeks Sales Secretary Goal (LTG) pt will score > 45 on LEFS to improve her quality of life LTG Duration 8 weeks STS Impairment pt perform STS with stagger stance and pushes off through armrests Short Term Goal (STG) pt will be able to stand up with even steps x5 times under 16 seconds STG Duration 4 weeks Sales Secretary Goal (LTG) pt will be able to stand up from a regular chair x5 times without using armrests safely and independently under 15 seconds LTG Duration 8 weeks gait Impairment pt is using FWW for all mobility Short Term Goal (STG) pt will progress to use SPC for all mobility safely and independently STG Duration 4 weeks Sales Secretary Goal (LTG) pt will progress to amb without AD for all mobility safely and independently LTG Duration 8 weeks ROM Impairment lack of Rknee ROM Short Term Goal (STG) pt will show increase in R knee AROM by >15degrees to improve her overall mobility STG Duration 4 weeks Sales Secretary Goal (LTG) pt will show increase in R knee AROM by >30 degrees to improve her overall mobility and gait mechanics LTG Duration 8 weeks Assessment Summary Assessment Pt has increased swelling R proximal calf and knee. No systemic signs of infection. She has been unable to wear compression due to a rash after she washed the stockings . PT encouraged pt and her daughter to re-wash and thoroughly rinse stocking for another trial. Physical Therapy Plan Frequency and Duration Frequency of Treatment 2x/Week Duration of Treatment 8 weeks Plan of Care Start Date 08/24/20 Plan of Care End Date 10/23/20 Next Visit Focus/Plan Next Note Type Treatment Note Next Visit Plan STS LEFS check HEP, flexion and extension exercises. stepper at the end.
--- NOTE | 2020-10-06 16:07 | PT.OTN ---
Current Diagnoses Unilateral primary osteoarthritis, right knee (10/06/20) Physical Therapy Treatment Note PT-OP-A Visit Information Start: 08/24/20 14:20 Freq: Status: Active Protocol: Document 10/06/20 15:20 HH (Rec: 10/06/20 16:07 [id number]) Out-Patient Physical Therapy Visit Information Visit Information Visit Type Progress Note Visit Note dtr attended session Surgeon recommended pt to consult with PCP for medication management d/t ongoing swelling at RLE. Pt is now allowed to drive but not highway yet. Visit Start Time 15:16 Visit Stop Time 16:00 Total Visit Minutes 44 Visit Number 03/30 Number of TELEVISION MAINTENANCE WORKER Visits 0 PT-OP-B Current Condition Start: 08/24/20 14:20 Freq: Status: Active Protocol: Document 08/24/20 15:24 HH (Rec: 08/24/20 16:31 [email or web address]) Current Condition History of Current Condition Onset Date 08/17/20 Current Complaints s/p R TKA History of Current Condition Pt is a 85yo female here with her daughter for rehab s/p R TKA on 08/17/20. Pt stated she has been progressing very well since surgrey. Pt is currently using FWW for all mobility and able to walk around the house 4-5 times a day. She has been doing ankle [place], ankle pumps, and seated quad set at home. Treatment Goals Patient/Caregiver Goals 1. To regain full ROM and strength for her R knee 2. To be able to walk without AD again 3. to be able to climb stairs without help Prior Functional Status Baseline Function- ADL's Independent Baseline Function- Mobility Independent Baseline Function- Gait without AD Baseline Function- Recreation/Hobbies able to walk at home without AD but SPC in community. Baseline Function- Other she was able to drive independent for all ADLs and IADLs Current Functional Impairments (Reported) Functional Limitations- ADL's requires dtr min to contact guard assistance Functional Limitations- Mobility/Gait FWW at all times Functional Limitations- Other Pt has been sleeping in her recliner since she has difficulty lifting her RLE to bed. PT-OP-C Subjective Start: 08/24/20 14:20 Freq: Status: Active Protocol: Document 10/06/20 15:20 HH (Rec: 10/06/20 16:07 [id number]) OP-PT Subjective Patient Comments Patient Comments edie been walking without cane in the house so far. told me to work on flexion as well . Patient Reported Progress Improving Patient Questionnaires Lower Extremity Functional Scale LEFS Score 36 LEFS Impairment 40 to 59% Impaired (Score 32- 47) PT-OP-E Functional Tests Start: 08/24/20 14:20 Freq: Status: Active Protocol: Document 09/01/20 15:14 HH (Rec: 09/01/20 16:15 [id number]) Functional Tests Five Times Sit to Stand Test Score 20 Comments pushed off through FWW with staggered stance PT-OP-G Mobility & Gait Start: 08/24/20 14:20 Freq: Status: Active Protocol: Document 08/24/20 15:24 HH (Rec: 08/24/20 16:31 [email or web address]) OP Mobility Evaluation Bed Mobility Supine to and from Sit supine to sit requires min A to pivot her R LE and vice; same for sit to supine Transfers Sit to Stand with stagger stance and FWW OP Gait Assessment Gait Gait Assistance Required: Standby Assistance Able to Maintain Weight Bearing Status Yes During Gait Assistive Devices Assistive Device Gait Belt,Front Wheeled Walker Gait Deviations General Gait Pattern Antalgic,Decreased Stride Length,Decreased Feet Clearance,Flexed Trunk,Lateral Trunk Lean Comments Gait Comments increased WB on LLE and lack of R knee extension on RLE PT-OP-J Posture/Palpation/Skin Start: 08/24/20 14:20 Freq: Status: Active Protocol: Document 08/24/20 15:24 HH (Rec: 08/24/20 16:31 [email or web address]) Palpation Assessment Location R knee Palpation Findings Soft Tissue Tightness, Tenderness Palpation Details no significant edema noted at R knee but mild swelling noted . pt is wearing compressiong sock up to R mid thigh PT-OP-K Range of Motion Start: 08/24/20 14:20 Freq: Status: Active Protocol: Document 08/24/20 15:24 HH (Rec: 08/24/20 16:31 [email or web address]) Knee Goniometric Range of Motion Knee Right Knee ROM WFL No Patient Position Supine Flexion Active (degrees) 70 Flexion Passive (degrees) 75 Extension Active (degrees) 10 Comments pain at end range Left Knee ROM WFL Yes Patient Position Supine Flexion Active (degrees) 110 Extension Active (degrees) 4 Knee ROM Limitations Knee ROM Limitations Soft Tissue Tightness,Muscle Weakness,Pain,Swelling PT-OP-Q Treatments Start: 08/24/20 14:20 Freq: Status: Active Protocol: Document 10/06/20 15:20 (Rec: 10/06/20 16:07 [email or web address]) Cardio Equipment Recumbent Stepper (Sci-Fit) Duration (Minutes) 7 Resistance 2.5 Seat Position 10 Other beginning of session Gym Equipment Shuttle Recovery SL squat Resistance 37# Shuttle Recovery Platform Stable Reps/Time no discomfort noted. 12 x3 Therapeutic Exercises Standing Exercises step up Side bilateral Equipment Used 6 inches for L, 4 for R Reps/Minutes 8 x 2 Comments with UE support Gait Training Gait Activity no AD Device Used none Level of Assistance SBA Surface ground level Distance/Duration 20ft x 4 laps Treatment Focus WB on RLE Comments cues on increasing WB on RLE. PT-OP-T Assessment and Plan Start: 08/24/20 14:20 Freq: Status: Active Protocol: Document 10/06/20 15:20 (Rec: 10/06/20 16:07 [id number]) Physical Therapy Assessment Goals LEFS Impairment pt scores 26 on LEFS Short Term Goal (STG) 10/06 goal met pt scores 36 on LEFS to improve her mobility and strength STG Duration 4 weeks [employer] Goal (LTG) pt will score > 45 on LEFS to improve her quality of life LTG Duration 8 weeks STS Impairment pt perform STS with stagger stance and pushes off through armrests Short Term Goal (STG) 10/06 goal met pt is able to stand up with even steps 10 times without UE push off and with even steps. STG Duration 4 weeks Mcfp Goal (LTG) 10/06 pt will be able to stand up from a regular chair x5 times without using armrests safely and independently under 15 seconds LTG Duration 8 weeks gait Impairment pt is using FWW for all mobility Short Term Goal (STG) 10/06 goal met pt is using SPC for all mobility safely and independently STG Duration 4 weeks [employer] Goal (LTG) 10/06 in progress pt is walking at home without AD sometimes pt will progress to amb without AD for all mobility safely and independently LTG Duration 8 weeks ROM Impairment lack of Rknee ROM Short Term Goal (STG) 10/06 goal met kneeflexion =95 , PROM = 100 pt will show increase in R knee AROM by >15degrees to improve her overall mobility STG Duration 4 weeks [employer] Goal (LTG) pt will show increase in R knee AROM by >30 degrees to improve her overall mobility and gait mechanics LTG Duration 8 weeks Progress Towards Goals Progress Towards Goals Progressing Toward Goals Assessment Summary Assessment pt overall shows good progression with her mobility and gait. However, pt has been having increased swelling bilaterally which limits her knee ROM bilaterally as well. pt's R knee AROM remains at 8- 95 degrees and she will consult her PCP for possible medication management. Begins gait training today without AD and pt did very well. Physical Therapy Plan Frequency and Duration Frequency of Treatment 2x/Week Duration of Treatment 8 weeks Plan of Care Start Date 08/24/20 Plan of Care End Date 10/23/20 Therapeutic Interventions Therapeutic Interventions Balance Training,Gait Training ,Home Exercise Program,Joint Mobilizations,Manual Therapy, Neuromuscular Re-education, Patient/Caregiver Education, Self-Care/Home Management, Sensory Integration,Soft Tissue Mobilization,Taping, Therapeutic Activities, Therapeutic Exercises Modalities Cold Pack/Ice Massage,Electric Stimulation,Hot Packs Next Visit Focus/Plan Next Note Type Treatment Note Next Visit Plan STS LEFS check HEP, flexion and extension exercises. stepper at the end.
--- NOTE | 2020-10-08 16:02 | PT.OTN ---
Current Diagnoses Unilateral primary osteoarthritis, right knee (10/08/20) Physical Therapy Treatment Note PT-OP-A Visit Information Start: 08/24/20 14:20 Freq: Status: Active Protocol: Document 10/08/20 15:11 HH (Rec: 10/08/20 16:01 [id number]) Out-Patient Physical Therapy Visit Information Visit Information Visit Type Treatment Note Visit Note My doctor double up my water pill and change my BP med in half. Visit Start Time 15:15 Visit Stop Time 16:00 Total Visit Minutes 45 Visit Number 04/30 Number of CLOUD SOLUTIONS ARCHITECT Visits 0 PT-OP-B Current Condition Start: 08/24/20 14:20 Freq: Status: Active Protocol: Document 08/24/20 15:24 HH (Rec: 08/24/20 16:31 [email or web address]) Current Condition History of Current Condition Onset Date 08/17/20 Current Complaints s/p R TKA History of Current Condition Pt is a 85yo female here with her daughter for rehab s/p R TKA on 08/17/20. Pt stated she has been progressing very well since surgrey. Pt is currently using FWW for all mobility and able to walk around the house 4-5 times a day. She has been doing ankle northway, ankle pumps, and seated quad set at home. Treatment Goals Patient/Caregiver Goals 1. To regain full ROM and strength for her R knee 2. To be able to walk without AD again 3. to be able to climb stairs without help Prior Functional Status Baseline Function- ADL's Independent Baseline Function- Mobility Independent Baseline Function- Gait without AD Baseline Function- Recreation/Hobbies able to walk at home without AD but SPC in community. Baseline Function- Other she was able to drive independent for all ADLs and IADLs Current Functional Impairments (Reported) Functional Limitations- ADL's requires dtr min to contact guard assistance Functional Limitations- Mobility/Gait FWW at all times Functional Limitations- Other Pt has been sleeping in her recliner since she has difficulty lifting her RLE to bed. PT-OP-C Subjective Start: 08/24/20 14:20 Freq: Status: Active Protocol: Document 10/08/20 15:11 HH (Rec: 10/08/20 16:01 [id number]) OP-PT Subjective Patient Comments Patient Comments I went to grocery shopping today for the first time since my surgery so im pretty tired already Patient Reported Progress Improving PT-OP-E Functional Tests Start: 08/24/20 14:20 Freq: Status: Active Protocol: Document 09/01/20 15:14 HH (Rec: 09/01/20 16:15 [id number]) Functional Tests Five Times Sit to Stand Test Score 20 Comments pushed off through FWW with staggered stance PT-OP-G Mobility & Gait Start: 08/24/20 14:20 Freq: Status: Active Protocol: Document 08/24/20 15:24 HH (Rec: 08/24/20 16:31 [email or web address]) OP Mobility Evaluation Bed Mobility Supine to and from Sit supine to sit requires min A to pivot her R LE and vice; same for sit to supine Transfers Sit to Stand with stagger stance and FWW OP Gait Assessment Gait Gait Assistance Required: Standby Assistance Able to Maintain Weight Bearing Status Yes During Gait Assistive Devices Assistive Device Gait Belt,Front Wheeled Walker Gait Deviations General Gait Pattern Antalgic,Decreased Stride Length,Decreased Feet Clearance,Flexed Trunk,Lateral Trunk Lean Comments Gait Comments increased WB on LLE and lack of R knee extension on RLE PT-OP-J Posture/Palpation/Skin Start: 08/24/20 14:20 Freq: Status: Active Protocol: Document 08/24/20 15:24 HH (Rec: 08/24/20 16:31 [email or web address]) Palpation Assessment Location R knee Palpation Findings Soft Tissue Tightness, Tenderness Palpation Details no significant edema noted at R knee but mild swelling noted . pt is wearing compressiong sock up to R mid thigh PT-OP-K Range of Motion Start: 08/24/20 14:20 Freq: Status: Active Protocol: Document 08/24/20 15:24 HH (Rec: 08/24/20 16:31 [email or web address]) Knee Goniometric Range of Motion Knee Right Knee ROM WFL No Patient Position Supine Flexion Active (degrees) 70 Flexion Passive (degrees) 75 Extension Active (degrees) 10 Comments pain at end range Left Knee ROM WFL Yes Patient Position Supine Flexion Active (degrees) 110 Extension Active (degrees) 4 Knee ROM Limitations Knee ROM Limitations Soft Tissue Tightness,Muscle Weakness,Pain,Swelling PT-OP-Q Treatments Start: 08/24/20 14:20 Freq: Status: Active Protocol: Document 10/08/20 15:11 (Rec: 10/08/20 16:01 [id number]) Cardio Equipment Recumbent Stepper (Sci-Fit) Duration (Minutes) 7 Resistance 2.5 Seat Position 10 Other beginning of session Therapeutic Exercises Sitting Exercises LAQ Sitting Exercise Name R knee Side right Reps/Minutes 10x2 seated knee flexion Sitting Exercise Name R knee Side right Equipment Used with skateboard Reps/Minutes 5 mins Comments up to 95-97 degrees flexion, with overpress at end range Standing Exercises step tap Side bilateral Equipment Used 8 inch step Reps/Minutes 10 x 2 Comments without UE support step up Side bilateral Equipment Used 6 inches for L, 4 for R Reps/Minutes 8 x 2 Comments with UE support Gait Training Gait Activity no AD Device Used none Level of Assistance SBA Surface ground level Distance/Duration 20ft x 4 laps Treatment Focus WB on RLE Comments cues on increasing WB on RLE. PT-OP-T Assessment and Plan Start: 08/24/20 14:20 Freq: Status: Active Protocol: Document 10/08/20 15:11 (Rec: 10/08/20 16:01 [id number]) Physical Therapy Assessment Goals LEFS Impairment pt scores 26 on LEFS Short Term Goal (STG) 10/06 goal met pt scores 36 on LEFS to improve her mobility and strength STG Duration 4 weeks Detention Goal (LTG) pt will score > 45 on LEFS to improve her quality of life LTG Duration 8 weeks STS Impairment pt perform STS with stagger stance and pushes off through armrests Short Term Goal (STG) 10/06 goal met pt is able to stand up with even steps 10 times without UE push off and with even steps. STG Duration 4 weeks Coin Collector Goal (LTG) 10/06 pt will be able to stand up from a regular chair x5 times without using armrests safely and independently under 15 seconds LTG Duration 8 weeks gait Impairment pt is using FWW for all mobility Short Term Goal (STG) 10/06 goal met pt is using SPC for all mobility safely and independently STG Duration 4 weeks Coin Collector Goal (LTG) 10/06 in progress pt is walking at home without AD sometimes pt will progress to amb without AD for all mobility safely and independently LTG Duration 8 weeks ROM Impairment lack of Rknee ROM Short Term Goal (STG) 10/06 goal met kneeflexion =95 , PROM = 100 pt will show increase in R knee AROM by >15degrees to improve her overall mobility STG Duration 4 weeks Detention Goal (LTG) pt will show increase in R knee AROM by >30 degrees to improve her overall mobility and gait mechanics LTG Duration 8 weeks Assessment Summary Assessment pt is tired today after grocery shopping. However, her swelling at BLE seemed improved with improved knee mobility as well. Will cont monitor her swelling progress. Physical Therapy Plan Frequency and Duration Frequency of Treatment 2x/Week Duration of Treatment 8 weeks Plan of Care Start Date 08/24/20 Plan of Care End Date 10/23/20 Therapeutic Interventions Therapeutic Interventions Balance Training,Gait Training ,Home Exercise Program,Joint Mobilizations,Manual Therapy, Neuromuscular Re-education, Patient/Caregiver Education, Self-Care/Home Management, Sensory Integration,Soft Tissue Mobilization,Taping, Therapeutic Activities, Therapeutic Exercises Modalities Cold Pack/Ice Massage,Electric Stimulation,Hot Packs Next Visit Focus/Plan Next Note Type Treatment Note Next Visit Plan STS LEFS check HEP, flexion and extension exercises. stepper at the end.
--- NOTE | 2020-10-15 12:42 | PT-OP ANOTE ---
Dtr called today to cancel appt since pt has diarrhea.
--- NOTE | 2020-10-21 10:31 | PT.OPPN ---
Current Diagnoses Unilateral primary osteoarthritis, right knee (10/21/20) Physical Therapy Progress Note PT-OP-A Visit Information Start: 08/24/20 14:20 Freq: Status: Active Protocol: Document 10/21/20 09:44 HH (Rec: 10/21/20 10:31 [id number]) Out-Patient Physical Therapy Visit Information Visit Information Visit Type Treatment Note Visit Note going to see PCP and surgeon on 11/03 for f/u Visit Start Time 09:45 Visit Stop Time 10:30 Total Visit Minutes 45 Visit Number 05/30 Number of COMMUNITY CULTURAL DEVELOPMENT OFFICER Visits 0 PT-OP-B Current Condition Start: 08/24/20 14:20 Freq: Status: Active Protocol: Document 08/24/20 15:24 HH (Rec: 08/24/20 16:31 [email or web address]) Current Condition History of Current Condition Onset Date 08/17/20 Current Complaints s/p R TKA History of Current Condition Pt is a 85yo female here with her daughter for rehab s/p R TKA on 08/17/20. [facility] Pt is currently using FWW for all mobility and able to walk around the house 4-5 times a day. She has been doing ankle kiana, ankle pumps, and seated quad set at home. Treatment Goals Patient/Caregiver Goals 1. To regain full ROM and strength for her R knee 2. To be able to walk without AD again 3. to be able to climb stairs without help Prior Functional Status Baseline Function- ADL's Independent Baseline Function- Mobility Independent Baseline Function- Gait without AD Baseline Function- Recreation/Hobbies able to walk at home without AD but SPC in community. Baseline Function- Other she was able to drive independent for all ADLs and IADLs Current Functional Impairments (Reported) Functional Limitations- ADL's requires dtr min to contact guard assistance Functional Limitations- Mobility/Gait FWW at all times Functional Limitations- Other Pt has been sleeping in her recliner since she has difficulty lifting her RLE to bed. PT-OP-C Subjective Start: 08/24/20 14:20 Freq: Status: Active Protocol: Document 10/21/20 09:44 HH (Rec: 10/21/20 10:31 [id number]) OP-PT Subjective Patient Comments Patient Comments My knees are still swollen but slightly better. My PCP told me to get a high knee compression socks to manage that. Edie been able to walk around without cane and edie been doing okay. Patient Reported Progress Improving PT-OP-E Functional Tests Start: 08/24/20 14:20 Freq: Status: Active Protocol: Document 09/01/20 15:14 HH (Rec: 09/01/20 16:15 [id number]) Functional Tests Five Times Sit to Stand Test Score 20 Comments pushed off through FWW with staggered stance PT-OP-G Mobility & Gait Start: 08/24/20 14:20 Freq: Status: Active Protocol: Document 08/24/20 15:24 HH (Rec: 08/24/20 16:31 [email or web address]) OP Mobility Evaluation Bed Mobility Supine to and from Sit supine to sit requires min A to pivot her R LE and vice; same for sit to supine Transfers Sit to Stand with stagger stance and FWW OP Gait Assessment Gait Gait Assistance Required: Standby Assistance Able to Maintain Weight Bearing Status Yes During Gait Assistive Devices Assistive Device Gait Belt,Front Wheeled Walker Gait Deviations General Gait Pattern Antalgic,Decreased Stride Length,Decreased Feet Clearance,Flexed Trunk,Lateral Trunk Lean Comments Gait Comments increased WB on LLE and lack of R knee extension on RLE PT-OP-J Posture/Palpation/Skin Start: 08/24/20 14:20 Freq: Status: Active Protocol: Document 08/24/20 15:24 HH (Rec: 08/24/20 16:31 [email or web address]) Palpation Assessment Location R knee Palpation Findings Soft Tissue Tightness, Tenderness Palpation Details no significant edema noted at R knee but mild swelling noted . pt is wearing compressiong sock up to R mid thigh PT-OP-K Range of Motion Start: 08/24/20 14:20 Freq: Status: Active Protocol: Document 08/24/20 15:24 HH (Rec: 08/24/20 16:31 [email or web address]) Knee Goniometric Range of Motion Knee Measured in Degrees Right Knee ROM WFL No Patient Position Supine Flexion Active (degrees) 70 Flexion Passive (degrees) 75 Extension Active (degrees) 10 Comments pain at end range Left Knee ROM WFL Yes Patient Position Supine Flexion Active (degrees) 110 Extension Active (degrees) 4 Knee ROM Limitations Knee ROM Limitations Soft Tissue Tightness,Muscle Weakness,Pain,Swelling PT-OP-T Assessment and Plan Start: 08/24/20 14:20 Freq: Status: Active Protocol: Document 10/21/20 09:44 (Rec: 10/21/20 10:31 HH [id number]) Physical Therapy Assessment Goals LEFS Impairment pt scores 26 on LEFS Short Term Goal (STG) 10/06 goal met pt scores 36 on LEFS to improve her mobility and strength STG Duration 4 weeks Custodial Goal (LTG) pt will score > 45 on LEFS to improve her quality of life LTG Duration 8 weeks STS Impairment pt perform STS with stagger stance and pushes off through armrests Short Term Goal (STG) 10/06 goal met pt is able to stand up with even steps 10 times without UE push off and with even steps. STG Duration 4 weeks Custodial Goal (LTG) 10/06 pt will be able to stand up from a regular chair x5 times without using armrests safely and independently under 15 seconds LTG Duration 8 weeks gait Impairment pt is using FWW for all mobility Short Term Goal (STG) 10/06 goal met pt is using SPC for all mobility safely and independently STG Duration 4 weeks Zinc Plate Cutter Goal (LTG) 10/06 in progress pt is walking at home without AD sometimes 10/21 pt has been ambulating without AD for all mobility 75 % of the time safely and independently LTG Duration 8 weeks ROM Impairment lack of Rknee ROM Short Term Goal (STG) 10/06 goal met kneeflexion =95 , PROM = 100 pt will show increase in R knee AROM by >15degrees to improve her overall mobility STG Duration 4 weeks Zinc Plate Cutter Goal (LTG) pt will show increase in R knee AROM by >30 degrees to improve her overall mobility and gait mechanics LTG Duration 8 weeks Assessment Summary Assessment pt overall progress well in therapy with improved mobility and activity tolerance but continues to lack of TKE and end range flexion most likely d/t ongoing BLE swelling. Pt is currently under the transition of changing her water pill and expect to see progress as her swelling goes down. Added step up to her HEP . Physical Therapy Plan Frequency and Duration Frequency of Treatment Every Other Week Duration of Treatment 8 weeks Plan of Care Start Date 10/21/20 Plan of Care End Date 12/20/20 Therapeutic Interventions Therapeutic Interventions Balance Training,Gait Training ,Home Exercise Program,Joint Mobilizations,Manual Therapy, Neuromuscular Re-education, Patient/Caregiver Education, Self-Care/Home Management, Sensory Integration,Soft Tissue Mobilization,Taping, Therapeutic Activities, Therapeutic Exercises Modalities Cold Pack/Ice Massage,Electric Stimulation,Hot Packs Next Visit Focus/Plan Next Note Type Treatment Note Next Visit Plan STS LEFS check HEP, flexion and extension exercises. stepper at the end.
--- NOTE | 2020-11-04 12:43 | PT.OPDS ---
Current Diagnoses Unilateral primary osteoarthritis, right knee (10/21/20) Visit Care Team Role Provider Type Philly Merrill MD Family Provider Physician Primary Care Provider Specialty: Internal Medicine Address: [address] [place] [address], [id number] Email: [email or web address] Julieth Mcduffie PA-C Attending Provider Non-Staff Referring Provider Specialty: Medical Address: [address] [place] [address], [phone] Email: Visit Number Visit Number 05/30 Discharge Summary PT-OP-T Assessment and Plan Start: 08/24/20 14:20 Freq: Status: Active Protocol: Document 11/04/20 12:41 (Rec: 11/04/20 12:43 [id number]) Physical Therapy Plan Discharge Physical Therapy Discharge Reasons Patient Request Discharge Comments pt called in to cancel her appt since she saw her surgeon and thinks she is met her rehab goals, DC from PT today
== END 2020-11-04 12:44 | disposition home or self-care (01) ==
LOC: PHYS 09:45
PROVIDERS: Family Provider Internal Medicine; PCP Internal Medicine; Referring Provider Physician Assistant; Visit Provider Physician Assistant
DX: M17.11 Unilateral primary osteoarthritis, right knee (principal)
CPT/HCPCS: 95851; 97110; 97116; 97140; 97161

== ENCOUNTER → 2020-11-04 15:24 | Outpatient (CLI) | payer MEDICARE, OTHER, SELFPAY ==
[2018-08-08 12:38] VITALS: BMI 33.9
[2020-11-04] MEDS: COVID-19 VACC #2, MRNA(MOD) 100 MCG/0.5 ML VIAL IM (15:29)
== END ==
PROVIDERS: Family Provider Internal Medicine; PCP Internal Medicine; Visit Provider Internal Medicine
DX: Z23 Encounter for immunization (principal)
CPT/HCPCS: 0012A; 91301

== ENCOUNTER → 2020-11-05 06:57 | Outpatient (CLI) | payer MEDICARE, OTHER, SELFPAY ==
[2018-08-08 12:38] VITALS: BMI 33.9
[2020-11-05 07:57] LABS: Alanine Aminotransferase 16 IU/L (<35); Albumin 4.3 g/dL (3.5-5.0); Albumin Globulin Ratio 1.5 (1.0-2.8); Alkaline Phosphatase 80 U/L (38-126); Aspartate Aminotransferase 21 IU/L (14-36); BUN Creatinine Ratio 19.4 (6-22); Bilirubin Total 0.5 mg/dL (0.2-1.3); Blood Urea Nitrogen 19 mg/dL (7-17); Calcium 9.4 mg/dL (8.4-10.2); Carbon Dioxide 30 mmol/L (22-32); Chloride 97 mmol/L (98-107); Cholesterol 134 mg/dL (140-199); Estimated Glomerular Filt Rate 54.1 mL/min (>60); Globulin 2.9 g/dL (1.7-4.1); Glucose 104 mg/dL (80-110); HDL Cholesterol 55 mg/dL (40-60); HEMOLYSIS < 15 (0-50); LDL Cholesterol Calculated 60 mg/dL (<100); Potassium 4.6 mmol/L (3.4-5.1); Sodium 134 mmol/L (137-145); Total Protein 7.2 g/dL (6.3-8.2); Triglycerides 96 mg/dL (35-150)
[2020-11-05 08:26] LABS: TSH w/ Reflex to FT4 4.82 uIU/mL (0.47-4.68)
[2020-11-05 08:46] LABS: Vitamin B12 308 pg/mL (239-931)
[2020-11-05 09:49] LABS: Free T4, Direct Thyroxine 1.92 ng/dL (0.78-2.19)
== END ==
PROVIDERS: Family Provider Internal Medicine; PCP Internal Medicine; Referring Provider Internal Medicine; Visit Provider Internal Medicine
DX: E03.9 Hypothyroidism, unspecified (principal); G25.81 Restless legs syndrome; E78.00 Pure hypercholesterolemia, unspecified; G62.9 Polyneuropathy, unspecified
CPT/HCPCS: 36415; 80053; 80061; 82607; 84439; 84443

== ENCOUNTER → 2022-02-10 11:12 | Outpatient (CLI) | payer MEDICARE, OTHER, SELFPAY ==
[2018-08-08 12:38] VITALS: BMI 33.9
--- NOTE | 2022-02-10 | DI.RAD.S_ITS ---
PROCEDURE: XR CHEST 2V INDICATIONS: right-sided chest pain, chest wall pain TECHNIQUE: 2 views of the chest were acquired. COMPARISON: [facility], CR, XR CHEST 2V, 08/08/2018, 8:17. [facility], CR, XR CHEST 2V, 08/06/2018, 12:01. FINDINGS: Surgical changes and devices: None. Lungs and pleura: No consolidation. No interval change appreciated. There is increased pulmonary markings. Prominent lung volumes. No pleural effusions or pneumothorax. Mediastinum: Mediastinal contours are normal. Heart size is normal. Bones and chest wall: No suspicious bony abnormalities. Soft tissues appear unremarkable. IMPRESSION: No interval change appreciated. Prominent pulmonary markings. This could be seen in the setting of pulmonary vasculature engorgement or possibly interstitial lung disease or emphysematous change. Chest CT could be considered for further evaluation. Dictated by: Gordon Kay M.D. on 02/10/2022 at 12:21 Approved by: Gordon Kay M.D. on 02/10/2022 at 12:26
== END ==
PROVIDERS: PCP Internal Medicine; Referring Provider Internal Medicine; Visit Provider Internal Medicine
DX: R07.9 Chest pain, unspecified (principal)
CPT/HCPCS: 71046